=== PATIENT | female | born 1955 | race American Indian/Alaskan Native ===

== ENCOUNTER 2016-11-14 12:44 | Inpatient (IN) | payer MEDICARE ==
[2016-11-14 14:37] LABS: BASO % 0.4 % (0.0-2.0); EOS # 0.3 K/uL (0.0-0.7); HEMATOCRIT 28.9 % (34.0-47.0); LYMPH # 3.7 K/uL (1.0-4.3); LYMPH % 36.9 % (20.0-40.0); MEAN CELL VOLUME 87.1 fL (81.0-99.0); MEAN CORPUSCULAR HEMOGLOBIN 28.1 pg (27.0-31.0); MEAN CORPUSCULAR HGB CONC 32.2 g/dL (33.0-37.0); MEAN PLATELET VOLUME 7.8 fL (7.2-11.7); MONO # 0.7 K/uL (0.0-0.8); MONO % 7.5 % (0.0-10.0); RED CELL DISTRIBUTION WIDTH 13.5 % (11.5-14.5); WHITE BLOOD COUNT 9.9 K/uL (4.8-10.8)
[2016-11-14 14:45] LABS: CHLORIDE 109 mmol/L (98-107); INR 1.2; SODIUM 140 mmol/L (132-148)
[2016-11-14 14:46] LABS: POTASSIUM 4.6 mmol/L (3.6-5.2)
[2016-11-14 14:47] LABS: CHOLESTEROL 145 mg/dL (0-199)
[2016-11-14 14:48] LABS: ALKALINE PHOSPHATASE 211 U/L (38-126); AST/SGOT 20 U/L (14-36); BILIRUBIN,TOTAL 0.5 mg/dL (0.2-1.3); BLOOD UREA NITROGEN 54 mg/dL (7-17); CARBON DIOXIDE 20 mmol/L (22-30); GFR AFRICAN-AMERICAN 12; TOTAL PROTEIN 7.2 g/dL (6.3-8.3)
[2016-11-14 14:49] LABS: ALT/SGPT 27 U/L (9-52); CALCIUM 7.8 mg/dl (8.6-10.4)
--- NOTE | 2016-11-14 14:54 | CP.PCM.CON ---
History of Present Illness - History of Present Illness History of Present Illness: 60 y/o female patient wtih PMH of Anxiety, Arthritis, Depression, Diabetes (NON- INSULIN), GERD, HTN, Rheumatoid Arthritis seen and evaluated at bedside in [facility]. Patient was sent to [facility] from Dr. Wright's ( Her dredge or barge shore hand) office to rule out the bilateral lower extremities DVT. Patient states she first started to have lower extremity swelling a month ago while in [place] for her brother's . Patient states the erythema has only been present for a few days. Patient also complains of pain in right foot that has been present since a fall at home two months ago. Patient states she had an outpatient xray in September that showed a fracture in her heel. Patient also complains of dizziness since a frozen chicken fell out of her freezer onto her head in September. Patient states that she feels weak now. Patient denies any symptoms of N/V/F/SOB/Chest pain. Review of Systems - Constitutional Constitutional: As Per HPI Past Patient History - Past Social History Smoking Status: Light Smoker < 10 Cigarettes Daily - CARDIAC Hx Cardiac Disorders: Yes Hx Hypertension: Yes - ENDOCRINE/METABOLIC Hx Endocrine Disorders: Yes Hx Diabetes Mellitus Type 2: Yes - MUSCULOSKELETAL/RHEUMATOLOGICAL Hx Musculoskeletal Disorders: Yes Hx Arthritis: Yes Hx Rheumatoid Arthritis: Yes - PSYCHIATRIC Hx Psychophysiologic Disorder: Yes Hx Anxiety: Yes Hx Depression: Yes Hx Substance Use: No - SURGICAL HISTORY Hx Surgeries: Yes Hx Cataract Extraction: Yes Hx Cholecystectomy: Yes Hx Eye Surgery: Yes Hx Hysterectomy: Yes Other/Comment: vascular surgery Meds Allergies/Adverse Reactions: Allergies Allergy/AdvReac Type Severity Reaction Status Date / Time codeine Allergy Verified 11/14/16 12:54 Iodine and Iodide Containing Allergy Verified 11/14/16 12:54 Produc Penicillins Allergy Verified 11/14/16 12:54 Sulfa (Sulfonamide Allergy Verified 11/14/16 12:54 Antibiotics) vancomycin Allergy Verified 11/14/16 12:54 seafood Allergy Uncoded 11/14/16 12:54 Physical Exam - Constitutional Appears: Non-toxic, No Acute Distress - Extremities Exam Additional comments: Vascular: DP and PT palpabel, (Doppler was used to right foot), CFT is less than 3 seconds, Mild pedal edema noted to the RLE, warm to touch B/L LE Derm: No Open wounds noted, no cyst noted, moderate erythema noted to the distal LLE Ortho: (+) Dyan sign to the RLE, (-) Dyan sign to the LLE Neuro: Diminished protective sensation and light touch. - Neurological Exam Neurological exam: Alert, CN II-XII Intact - Psychiatric Exam Psychiatric exam: Normal Affect, Normal Mood Results - Vital Signs Recent Vital Signs: Last Vital Signs Temp 98.4 F 11/14/16 12:51 Pulse 78 11/14/16 12:51 Resp 18 11/14/16 12:51 BP 156/81 H 11/14/16 12:51 Pulse Ox 98 11/14/16 12:51 - Labs Result Diagrams: 11/14/16 14:33 11/14/16 14:33 Labs: Laboratory Results - last 24 hr 11/14/16 11/14/16 11/14/16 14:33 14:33 14:33 WBC 9.9 RBC 3.31 L Hgb 9.3 L Hct 28.9 L MCV 87.1 D MCH 28.1 MCHC 32.2 L RDW 13.5 Plt Count 255 MPV 7.8 Neut % (Auto) 52.2 Lymph % (Auto) 36.9 Camp % (Auto) 7.5 Eos % (Auto) 3.0 Baso % (Auto) 0.4 Neut # 5.2 Lymph # 3.7 Camp # 0.7 Eos # 0.3 Baso # 0.0 PT 13.6 H INR 1.2 APTT 32 Hemoglobin A1c 6.8 H Assessment & Plan - Assessment and Plan (Free Text) Assessment: 60 y/o female patient with bilateral lower extremities swelling and erythema Plan: Patient seen and evaluated at bedside in ER All the questions and concerns were addressed Discussed with attending Dr. Wright Venous Duplex-Negative DVT Labs and vitals were reviewed-Hypoglycemia ( 40mg/ml) Patient was given 3 cups of Brewster Juice and started Fluid JESSICA on CKD- Nephrology consult IV abx was started-Cefepime 1g Q24 h ID consult was placed Patient odes not require any lower extremity dressing X ray was reviewed-Right calcaneus avulsion fracture was noted Podiatry will continue to follow while patient remain in house.
--- NOTE | 2016-11-14 15:04 | C.PDOC ---
History Of Present Illness 60 yr old female presents to the ER with complaints of discolored rash to the left lower leg, feeling dizzy for the past 3 weeks after a frozen chicken fell and hit on her top of head and edema to the right lower leg concerned for DVT. Patient is sent from Dr. Naun Wright, podiatry office. Patient denies fever, chest pain, SOB, nausea, vomiting, back pain, weakness or numbness. Time Seen by Provider: 11/14/16 13:50 Chief Complaint (Nursing): Lower Extremity Problem/Injury History Per: Patient History/Exam Limitations: no limitations Onset/Duration Of Symptoms: Days Current Symptoms Are (Timing): Still Present Past Medical History Reviewed: Historical Data, Nursing Documentation, Vital Signs Vital Signs: Last Vital Signs Temp 98.4 F 11/14/16 12:51 Pulse 84 11/14/16 15:22 Resp 18 11/14/16 15:22 BP 166/76 H 11/14/16 15:22 Pulse Ox 98 11/14/16 16:52 - Medical History PMH: Anxiety, Arthritis, Depression, Diabetes (NON-INSULIN), GERD, HTN, Rheumatoid Arthritis Surgical History: Cholecystectomy - [facility] Procedures DESTRUCT-KNEE LESION NEC (05/12/97) ESOPHAGOGASTRODUODENOSCOPY [EGD] W/CLOSED BIOPSY (12/30/12) EXCIS KNEE SEMILUN CARTL (11/09/97) KNEE ARTHROSCOPY (11/09/97) KNEE SYNOVECTOMY (11/09/97) OTHER REPAIR OF KNEE (11/09/97) PERIRECTAL INCISION (12/30/12) SPINAL CANAL INJECT NEC (05/12/97) Family History: States: No Known Family Hx - Social History Hx Tobacco Use: Yes Hx Alcohol Use: No Hx Substance Use: No - Immunization History Hx Tetanus Toxoid Vaccination: No Hx Influenza Vaccination: No Hx Pneumococcal Vaccination: No Review Of Systems Except As Marked, All Systems Reviewed And Found Negative. Constitutional: Negative for: Fever Cardiovascular: Negative for: Chest Pain Respiratory: Negative for: Shortness of Breath Gastrointestinal: Negative for: Nausea, Vomiting Musculoskeletal: Positive for: Other ((+) Edema to the right lower leg). Negative for: Back Pain Skin: Positive for: Rash (Discolored rash to the left lower leg.) Neurological: Positive for: Dizziness. Negative for: Weakness, Numbness Physical Exam - Physical Exam Appears: Well, Non-toxic, No Acute Distress, Other ((+) Obese ) Skin: Warm, Dry, Other (Left Lower Leg - Red discoloration) Head: Atraumatic, Normacephalic Eye(s): bilateral: Other (Eye surgery for cataracts. +Photophobia and redness R> L) Chest: Symmetrical, No Tenderness Cardiovascular: Murmur (holosystolic murmur right aortic focus) Respiratory: Normal Breath Sounds, No Rales, No Rhonchi, No Wheezing Gastrointestinal/Abdominal: Normal Exam, Soft, No Tenderness, No Guarding, No Rebound Extremity: No Calf Tenderness, Other (Right Lower Leg - Severe peripheral neuropathy with deminished sensations of the feet. Right Lower Leg - Mild edema. ) Neurological/Psych: Oriented x3, Normal Speech, Normal Motor ED Course And Treatment - Laboratory Results Result Diagrams: 11/14/16 14:33 11/14/16 14:33 O2 Sat by Pulse Oximetry: 98 - Other Rad CXR X-Ray: Viewed By Me, Read By Radiologist Interpretation: HISTORY: Dizziness. COMPARISON: No prior. FINDINGS: LUNGS: No active pulmonary disease. PLEURA: No significant pleural effusion identified, no pneumothorax apparent. CARDIOVASCULAR: Cardiomegaly. No evidence of acute, significant cardiovascular disease. OSSEOUS STRUCTURES: No significant abnormalities. VISUALIZED UPPER ABDOMEN: Normal. OTHER FINDINGS: None. IMPRESSION: No active disease. No acute/significant interval changes. . Concordant results with the preliminary interpretation rendered by the emergency department physician\PA at the conclusion of the procedure. X-Ray - Bilateral Feet X-Ray: Viewed By Me, Read By Radiologist Interpretation: PROCEDURE: Bilateral Feet Radiographs. HISTORY: recent R foot fx. COMPARISON: None. FINDINGS: BONES: Right Foot: No acute fracture. Plantar and Achilles Tendon insertion calcaneal spurs. Left Foot: No acute fracture. Plantar and Achilles Tendon insertion calcaneal spurs. JOINTS: Right Foot: Normal. No osteoarthritis. Left Foot: Normal. No osteoarthritis. SOFT TISSUES: Right Foot: Diffuse soft tissue swelling. Left Foot: Mild soft tissue swelling. OTHER FINDINGS: None. IMPRESSION: Soft tissue swelling without acute articular or osseous abnormality. - CT Scan/US CT - Head Other Rad Studies (CT/US): Read By Radiologist, Radiology Report Reviewed CT/US Interpretation: PROCEDURE: CT scan brain dated 11/14/2016. HISTORY: Status post fall 3 weeks ago with vertex contusion. Dizziness. No prior 3 wks ago, dizzy. COMPARISON: Comparison made with prior CT scan brain 12/31/2012. TECHNIQUE: Axial computed tomography images were obtained through the head/ brain without intravenous contrast. Radiation dose: Total exam DLP = 981.84 mGy-cm. This CT exam was performed using one or more of the following dose reduction techniques: Automated exposure control, adjustment of the mA and/or kV according to patient size, and/or use of iterative reconstruction technique. FINDINGS: HEMORRHAGE: No acute parenchymal, subarachnoid or extra-axial hemorrhage. BRAIN: No evidence of large acute infarct. No obvious parenchymal nor extra-axial mass or collection seen on this noncontrast study. Very minor generalized volume loss. VENTRICLES: No evidence of obstructive hydrocephalus. CALVARIUM: No acute calvarial fractures. . There is a tiny elliptical shaped radiopaque density within the left posterior superior parietal scalp that could represent small calcification or possibly focal foreign body such as gravel or glass. PARANASAL SINUSES: Frontal sinuses remain underpneumatized/ hypoplastic. Remaining visualized paranasal sinuses well-developed. Mild mucosal thickening again seen left maxillary sinus open. MASTOID AIR CELLS: Unremarkable as visualized. No inflammatory changes. OTHER FINDINGS: None. IMPRESSION: Slight contact 8 uptake in no acute intracranial hemorrhage. Minor generalized volume loss. Questionable small left posterior superior parietal scalp calcification or foreign body. Dopplar Other Rad Studies (CT/US): Read By Radiologist, Radiology Report Reviewed CT/US Interpretation: No abnormal findings of the examined veins bilateral lower extremity. Medical Decision Making Medical Decision Making: PLAN: * Dopplar * CT - Head * X-Ray - Bilateral Feet * CXR * EKG * Troponin * CBC * CMP * Urinalysis R lower leg swelling, prob related to R Achilles tendon rupture, already seen by Pod's and R booty in place. Repair plan pending L lower leg discoloration, LOW susp of cellulitis without tender, fever, leukocytosis. Likely Stasis dermatitis both legs neg for DVT by US today head contusion w dizziness, neg head CT for acute trauma. Consider concussion syndrome. Neuro consult PRN Acute on chronic Renal insufficiency BUN/Creat 54/4.5 from 35/3.4 last month. consider pre-renal vs chronic RA meds IVF's begun Renal consult Dizziness/falls ? related to b/l foot peripheral neuropathy, R achilles tendon rupture, persistent hypoglycemia glu 40's in ED and persistently about 60 even with feeds and re-feeds Consider med changes vs insulinoma Anemia: hgb 9.3 from 10.8 last month consider GI losses or anemia of chronic disease/renal disease Renal/GI workup Iron studies, erythropoiten therapy Cardiac blowing systolic murmer @ Aortic focus consider Cardiac US may explain recurrent anemia. If Critical with syncope... Persistent Falls risk Disposition Doctor Will See Patient In The: Hospital Counseled Patient/Family Regarding: Studies Performed, Diagnosis - Disposition Disposition: HOSPITALIZED Disposition Time: 16:51 Condition: GOOD - Clinical Impression Clinical Impression: Anemia, Acute on chronic renal failure, Frequent falls, Achilles tendon avulsion, Leg swelling - Scribe Statement The provider has reviewed the documentation as recorded by the Scribe Fiorella Sesay Provider Attestation: All medical record entries made by the Hoodibe were at my direction and personally dictated by me. I have reviewed the chart and agree that the record accurately reflects my personal performance of the history, physical exam, medical decision making, and the department course for this patient. I have also personally directed, reviewed, and agree with the discharge instructions and disposition.
--- NOTE | 2016-11-14 15:17 | RAD ---
PROCEDURE: Bilateral Feet Radiographs. HISTORY: recent R foot fx COMPARISON: None. FINDINGS: BONES: Right Foot: No acute fracture. Plantar and Achilles Tendon insertion calcaneal spurs Left Foot: No acute fracture. Plantar and Achilles Tendon insertion calcaneal spurs JOINTS: Right Foot: Normal. No osteoarthritis. Left Foot: Normal. No osteoarthritis. SOFT TISSUES: Right Foot: Diffuse soft tissue swelling. Left Foot: Mild soft tissue swelling. OTHER FINDINGS: None. IMPRESSION: Soft tissue swelling without acute articular or osseous abnormality.
[2016-11-14 15:20] LABS: GLUCOSE,RANDOM 40 mg/dL (65-105)
[2016-11-14] MEDS ORDERED: Sodium Chloride 0.9% 1,000 ML IV STA (15:42)
[2016-11-14] MEDS ORDERED: Sodium Chloride 0.9% 500 ML IV ONE (15:42)
[2016-11-14 17:11] LABS: RBC URINE 1 /hpf (0-3); URINE BILIRUBIN NEGATIVE (NEGATIVE); URINE BLOOD NEGATIVE (NEGATIVE); URINE COLOR Straw (YELLOW); URINE GLUCOSE (UA) NORMAL (Normal); URINE KETONE NEGATIVE (NEGATIVE); URINE LEUKOCYTE ESTERASE NEG Leu/uL (Negative); URINE PROTEIN 2+ mg/dL (NEGATIVE); URINE UROBILINOGEN NORMAL mg/dL (0.2-1.0); WBC URINE 1 /hpf (0-5)
--- NOTE | 2016-11-14 19:41 | CP.PCM.HP ---
History of Present Illness - History of Present Illness History of Present Illness: Patient is a 60 year old female with past medical history significant for HTN, diabetes, GERD and rheumatoid arthritis who presents to the ED after being sent by her emulsion operator for lower extremity edema and erythema. Patient states she saw her emulsion operator, Dr. Wright, yesterday and was told she should be evaluated in the ED. Patient states she did not come to the ED right away because she had an ophthalmology appointment for her recent glaucoma and cataract surgery. Patient states she first started to have lower extremity swelling a month ago while in [place] for her brother's . Patient states the erythema has only been present for a few days. Patient also complains of pain in right foot that has been present since a fall at home two months ago. Patient states she had an outpatient xray in September that showed a fracture in her heel. Patient also complains of dizziness since a frozen chicken fell out of her freezer onto her head in September. Patient denies loss of consciousness since during that event, however she states she has lost consciousness at home several times since. Patient states she was told by her doctor that this may be due to either low blood pressure or hypoglycemia. Patient complains of shortness of breath with walking short distances- from bedroom to bathroom, chest pain when she feels emotional over her brother recent passing, back pain which is chronic from her rheumatoid arthritis, as well as muscle spasms. PMD: Reisner PMHx: HTN, DM, RA, muscle spasms PSHx: eye surgery recently for glaucoma and cataracts, knee surgery FamHx: mother in MVA, multiple family members with cardiac disease, brother recently of unknown cause, pt states possibly cardiac related Social Hx: former 1ppd smoker for 40 years- quit 2 weeks ago, denies alcohol, drugs; lives with daughter Present on Admission - Present on Admission Any Indicators Present on Admission: No Review of Systems - Constitutional Constitutional: Weakness. absent: Chills, Fever - EENT Eyes: Other (recent eye surgery) Nose/Mouth/Throat: absent: Nasal Congestion - Cardiovascular Cardiovascular: Dyspnea, Dyspnea on Exertion, Edema, Leg Edema - Respiratory Respiratory: absent: Cough - Gastrointestinal Gastrointestinal: absent: Abdominal Pain, Nausea, Vomiting - Genitourinary Genitourinary: absent: Dysuria - Musculoskeletal Musculoskeletal: Back Pain - Integumentary Integumentary: Erythema - Neurological Neurological: Dizziness, Frequent Falls Past Patient History - Past Social History Smoking Status: Light Smoker < 10 Cigarettes Daily - CARDIAC Hx Hypertension: Yes - ENDOCRINE/METABOLIC Hx Endocrine Disorders: Yes Hx Diabetes Mellitus Type 2: Yes - MUSCULOSKELETAL/RHEUMATOLOGICAL Hx Arthritis: Yes Hx Rheumatoid Arthritis: Yes - PSYCHIATRIC Hx Anxiety: Yes Hx Depression: Yes Hx Substance Use: No - SURGICAL HISTORY Hx Cholecystectomy: Yes Meds Allergies/Adverse Reactions: Allergies Allergy/AdvReac Type Severity Reaction Status Date / Time codeine Allergy Verified 11/14/16 12:54 Iodine and Iodide Containing Allergy Verified 11/14/16 12:54 Produc Penicillins Allergy Verified 11/14/16 12:54 Sulfa (Sulfonamide Allergy Verified 11/14/16 12:54 Antibiotics) vancomycin Allergy Verified 11/14/16 12:54 seafood Allergy Uncoded 11/14/16 12:54 Physical Exam - Constitutional Appears: No Acute Distress, Other (obese) - Head Exam Head Exam: ATRAUMATIC, NORMOCEPHALIC - Eye Exam Eye Exam: EOMI - ENT Exam ENT Exam: Mucous Membranes Moist - Respiratory Exam Respiratory Exam: Clear to Auscultation Bilateral, NORMAL BREATHING PATTERN - Cardiovascular Exam Cardiovascular Exam: +S1, +S2, Systolic Murmur - GI/Abdominal Exam GI & Abdominal Exam: Normal Bowel Sounds, Soft. absent: Tenderness - Extremities Exam Extremities exam: Positive for: pedal edema Additional comments: bilateral DP pulses palpable erythema bilateral lower extremities to mid calf level bilateral pitting edema, right greater than left decreased sensation bilateral feet - Neurological Exam Neurological exam: Alert - Psychiatric Exam Psychiatric exam: Normal Affect - Skin Skin Exam: Erythema, Warm Results - Vital Signs Recent Vital Signs: Last Vital Signs Temp 98.1 F 11/14/16 18:18 Pulse 88 11/14/16 18:18 Resp 20 11/14/16 18:18 BP 194/94 H 11/14/16 18:18 Pulse Ox 96 11/14/16 18:18 - Labs Result Diagrams: 11/14/16 14:33 11/14/16 14:33 Labs: Laboratory Results - last 24 hr 11/14/16 11/14/16 17:06 17:41 POC Glucose (mg/dL) 105 Urine Color Straw Urine Clarity Clear Urine pH 5.0 Ur Specific [place] 1.012 Urine Protein 2+ H Urine Glucose (UA) Normal Urine Ketones Negative Urine Blood Negative Urine Nitrate Negative Urine Bilirubin Negative Urine Urobilinogen Normal Ur Leukocyte Esterase Neg Urine WBC (Auto) 1 Urine RBC (Auto) 1 Ur Squamous Epith Cells 2 Assessment & Plan - Assessment and Plan (Free Text) Assessment: Lower Extremity swelling and erythema suspect cellulitis Lower extremity venous doppler negative for DVT b/l foot xray: soft tissue swelling without acute articular or osseous abnormality will check VBG, procalcitonin blood cultures drawn in ED, will follow up result will start cefepime 1g q24h- patient does have history of penicillin allergy, we will monitor patient for signs of allergic reaction ID consult, Dr. Hubbard- help appreciated will check echo to rule out CHF JESSICA on CKD will give gentle IV fluid hydration of NS @40cc/h, monitor for signs of fluid overload Nephrology consult- Dr. Morillo- help appreciated Hypoglycemia suspected from adrenal insufficiency secondary to her long standing use of prednisone will check AM cortisol level accuchecks q4h HTN bystolic 10mg daily lopressor 100mg BID nifedipine 60mg daily monitor on tele Diabetes accuchecks q4h ISS mod consistent carb diet Diabetic Neuropathy reducing home dose of gabapentin to 100mg TID due to renal insufficiency Muscle Spasm Flexeril 5mg TID Rheumatoid arthritis continue prednisone daily Prophylactic measure heparin 5000 q12h protonix 40mg daily percocent 5/325 q8prn pain
[2016-11-14 19:51] LABS: VENOUS BLOOD GAS PCO2 45 mmHg (40-60); VENOUS BLOOD PH 7.29 (7.32-7.43)
[2016-11-14] MEDS: Oxycodone/Acetaminophen 5/325 mg Tab PO PRN (19:58)
[2016-11-14] MEDS: Cefepime IV 1 gm in Dextrose 1 GM/50 ML BAG IVPB SCH (21:42)
[2016-11-14] MEDS: Sodium Chloride 0.9% 1,000 ML IV SCH (21:45)
[2016-11-14] MEDS: (Novolin R) Insulin Human Regular 100 units/ml vial SC SCH (22:01)
[2016-11-15] MEDS: Oxycodone/Acetaminophen 5/325 mg Tab PO PRN ×3 (04:22→20:27)
[2016-11-15] MEDS ORDERED: Aritificial Tears (15ml) OU PRN (04:58)
[2016-11-15] MEDS ORDERED: Ciprofloxacin 0.3% OPTH SOLN OU SCH (06:00)
[2016-11-15] MEDS: Ofloxacin 0.3% Ophth Soln OU SCH ×4 (06:14→18:01)
[2016-11-15] MEDS: (Novolin R) Insulin Human Regular 100 units/ml vial SC SCH ×4 (07:54→21:26)
[2016-11-15 08:51] LABS: BASO % 0.5 % (0.0-2.0); EOS # 0.3 K/uL (0.0-0.7); EOS % 3.8 % (0.0-4.0); HEMATOCRIT 28.5 % (34.0-47.0); LYMPH # 2.5 K/uL (1.0-4.3); LYMPH % 35.2 % (20.0-40.0); MEAN CELL VOLUME 87.6 fL (81.0-99.0); MEAN CORPUSCULAR HEMOGLOBIN 28.5 pg (27.0-31.0); MEAN CORPUSCULAR HGB CONC 32.5 g/dL (33.0-37.0); MEAN PLATELET VOLUME 8.2 fL (7.2-11.7); MONO # 0.5 K/uL (0.0-0.8); MONO % 7.5 % (0.0-10.0); RED CELL DISTRIBUTION WIDTH 13.6 % (11.5-14.5)
[2016-11-15 09:12] LABS: CHLORIDE 110 mmol/L (98-107)
[2016-11-15 09:13] LABS: POTASSIUM 4.8 mmol/L (3.6-5.2); SODIUM 140 mmol/L (132-148)
[2016-11-15 09:15] LABS: BILIRUBIN,TOTAL 0.5 mg/dL (0.2-1.3); CARBON DIOXIDE 21 mmol/L (22-30); GFR AFRICAN-AMERICAN 13
[2016-11-15 09:16] LABS: ALB/GLOB RATIO 0.9 (1.0-2.1); ALKALINE PHOSPHATASE 200 U/L (38-126); ALT/SGPT 24 U/L (9-52); AST/SGOT 19 U/L (14-36); BLOOD UREA NITROGEN 49 mg/dL (7-17); CALCIUM 8.2 mg/dl (8.6-10.4); GLUCOSE,RANDOM 84 mg/dL (65-105); TOTAL PROTEIN 6.9 g/dL (6.3-8.3)
[2016-11-15 09:20] LABS: T4 7.29 ug/dL (5.5-11.0)
[2016-11-15 09:33] LABS: CORTISOL AM 8.1 ug/dL (4.46-22.7)
[2016-11-15 09:34] LABS: THYROID STIMULATING HORMONE < 0.02 mIU/L (0.46-4.68)
[2016-11-15] MEDS: Pantoprazole 40 mg EC Tab PO SCH (09:53)
[2016-11-15] MEDS: NIFEdipine 60 mg ER Tab PO SCH (10:06)
[2016-11-15] MEDS ORDERED: Oxycodone/Acetaminophen 5/325 mg Tab PO STA (10:13)
--- NOTE | 2016-11-15 11:03 | CP.PCM.PN ---
Subjective - Date & Time of Evaluation Date of Evaluation: 11/15/16 Time of Evaluation: 11:00 - Subjective Subjective: PODIATRY PROGRESS NOTE for DR. WRIGHT: 60 y/o female patient seen at bedside this morning for f/u of lower extremity edema and erythema. Pt seen resting comfortably in bed at time of visit, is AAOx3 and NAD. Says she is feeling much better today. Says that she does not remember too much about being in the emergency room yesterday but knows that she was given OJ and a sandwich. Denies any acute overnight events. Does complain of some persistent tenderness to the right calf today and some tenderness to the inside of her right foot arch. Denies f/n/v/c/sob/cp, says weakness and dizziness is much improved. Objective - Vital Signs/Intake and Output Vital Signs (last 24 hours): Temp Pulse Resp BP Pulse Ox 98.2 F 74 20 179/82 H 99 11/15/16 07:34 11/15/16 07:34 11/15/16 07:34 11/15/16 07:34 11/15/16 07:34 - Medications Medications: Current Medications Artificial Tears (Artificial Tears) 0.1 ml OU Q6H PRN PRN Reason: Dry eyes Cyclobenzaprine HCl (Flexeril) 5 mg PO TID [facility] Last Admin: 11/15/16 09:53 Dose: 5 mg Gabapentin (Neurontin) 100 mg PO TID [facility] Last Admin: 11/15/16 09:53 Dose: 100 mg Heparin Sodium (Porcine) (Heparin) 5,000 units SC Q12 [facility] Last Admin: 11/15/16 09:54 Dose: 5,000 units Sodium Chloride (Sodium Chloride 0.9%) 1,000 mls @ 40 mls/hr IV .Q24H [facility] Last Admin: 11/14/16 21:45 Dose: 40 mls/hr Cefepime HCl (Maxipime Iv 1 Gm Premix) 1 gm in 50 mls @ 100 mls/hr IVPB Q24H [facility] Last Admin: 11/14/16 21:42 Dose: 100 mls/hr Insulin Human Regular (Novolin R) 0 unit SC ACHS [facility] PRN Reason: Protocol Last Admin: 11/15/16 07:54 Dose: Not Given Metoprolol Tartrate (Lopressor) 100 mg PO BID [facility] Last Admin: 11/15/16 09:52 Dose: 100 mg Nebivolol (Bystolic) 10 mg PO DAILY [facility] Last Admin: 11/15/16 09:53 Dose: 10 mg Nifedipine (Procardia Xl) 60 mg PO DAILY [facility] Last Admin: 11/15/16 10:06 Dose: 60 mg Ofloxacin (Ocuflox Ophth 0.3%) 1 ml OU Q4H [facility] Last Admin: 11/15/16 09:53 Dose: 1 drop Oxycodone/Acetaminophen (Percocet 5/325 Mg Tab) 1 tab PO Q8H PRN PRN Reason: Pain, moderate (4-7) Stop: 11/17/16 18:37 Last Admin: 11/15/16 04:22 Dose: 1 tab Pantoprazole Sodium (Protonix Ec Tab) 40 mg PO DAILY [facility] Last Admin: 11/15/16 09:53 Dose: 40 mg Prednisone (Prednisone Tab) 5 mg PO DAILY [facility] Last Admin: 11/15/16 09:53 Dose: 5 mg - Labs Labs: 11/15/16 08:41 11/15/16 08:41 PT 13.6 SECONDS (9.7-12.2) H 11/14/16 14:33 INR 1.2 11/14/16 14:33 APTT 32 SECONDS (21-34) 11/14/16 14:33 - Constitutional Appears: Non-toxic, No Acute Distress - Extremities Exam Additional comments: BL low ext. exam: VASC: Dp/PT pulses palpable, cap refill < 3 sec to digits x 10, mild pedal edema noted to RLE, skin temp is warm to warm BL DERM: no open wounds noted, moderate erythema noted to distal LLE (margins marked with marking pen) Ortho: (+) tenderness to palp of right posterior leg, tenderness to palp of medial arch right foot, (-) tenderness to palp of posterior left leg NEURO: diminished protective and light touch sensation BL - Neurological Exam Neurological Exam: Alert, Awake, Oriented x3 - Psychiatric Exam Psychiatric exam: Normal Affect, Normal Mood Assessment and Plan - Assessment and Plan (Free Text) Assessment: 60 y/o female patient with bilateral lower extremities swelling and erythema Plan: Patient seen and evaluated at bedside Plan discussed with attending Dr. Wright in detail Low ext venous Duplex: Negative DVT Chart, labs and vitals reviewed: afebile, glucose improved (84 mg/dL) JESSICA on CKD- f/u nephrology recommendation c/w IV abx cefepime 1a q24h f/u ID recommendations pain meds per primary R foot x-ray: Right calcaneus avulsion fracture was noted. Pt is to ambulate with CAM boot which is at bedside Stable per podiatry, will continue to follow while she remains in house.
--- NOTE | 2016-11-15 12:27 | CP.PCM.CON ---
History of Present Illness - History of Present Illness History of Present Illness: Patient is a 60 year old female with past medical history significant for HTN, diabetes, GERD and rheumatoid arthritis who presents to the ED after being sent by her water filtration technician for lower extremity edema and erythema. Patient states she saw her water filtration technician, Dr. Wright, yesterday and was told she should be evaluated in the ED. Patient states she did not come to the ED right away because she had an ophthalmology appointment for her recent glaucoma and cataract surgery. Patient states she first started to have lower extremity swelling a month ago while in [place] for her brother's . Patient states the erythema has only been present for a few days. Patient also complains of pain in right foot that has been present since a fall at home two months ago. Patient states she had an outpatient xray in September that showed a fracture in her heel. Patient also complains of dizziness since a frozen chicken fell out of her freezer onto her head in September. Patient denies loss of consciousness since during that event, however she states she has lost consciousness at home several times since. Patient states she was told by her doctor that this may be due to either low blood pressure or hypoglycemia. Patient complains of shortness of breath with walking short distances- from bedroom to bathroom, chest pain when she feels emotional over her brother recent passing, back pain which is chronic from her rheumatoid arthritis, as well as muscle spasms. She noted tightness of lower ext without pain over past several days. No fever but chills described Patient reports history of ckd due to diabetes, she is not clear on stage of ckd. Family history as below and in addition mother with history of esrd PMD: Reisner PMHx: HTN, DM, RA, muscle spasms PSHx: eye surgery recently for glaucoma and cataracts, knee surgery FamHx: mother in MVA, multiple family members with cardiac disease, brother recently of unknown cause, pt states possibly cardiac related Social Hx: former 1ppd smoker for 40 years- quit 2 weeks ago, denies alcohol, drugs; lives with daughter Review of Systems - Constitutional Constitutional: Fatigue, Lethargy - EENT Eyes: Loss of Vision. absent: Pain Ears: absent: Ear Discharge, Ear Pain, Dizziness Nose/Mouth/Throat: absent: Nasal Trauma, Nose Pain, Bleeding Gums, Dry Mouth - Cardiovascular Cardiovascular: As Per HPI - Respiratory Respiratory: absent: Cough, Wheezing, Snoring - Gastrointestinal Gastrointestinal: absent: Dysphagia, Nausea, Vomiting - Genitourinary Genitourinary: absent: Pyuria, Urinary Hesitance, Freq UTI - Musculoskeletal Musculoskeletal: Muscle Weakness, Stiffness. absent: Muscle Cramps - Integumentary Integumentary: Changing Lesions, Rash Additional comments: see hpi - Neurological Neurological: Loss of Vision, Sensory Deficit, Weakness. absent: Confusion - Psychiatric Psychiatric: Depression. absent: Confusion - Endocrine Endocrine: absent: Heat Intolorance, Polyphagia, Polyuria - Hematologic/Lymphatic Hematologic: absent: Easy Bleeding, Easy Bruising Past Patient History - Past Medical History & Family History Past Medical History?: Yes - Past Social History Smoking Status: Light Smoker < 10 Cigarettes Daily - CARDIAC Hx Cardiac Disorders: Yes Hx Hypertension: Yes - ENDOCRINE/METABOLIC Hx Endocrine Disorders: Yes Hx Diabetes Mellitus Type 2: Yes - MUSCULOSKELETAL/RHEUMATOLOGICAL Hx Musculoskeletal Disorders: Yes Hx Arthritis: Yes Hx Rheumatoid Arthritis: Yes - PSYCHIATRIC Hx Psychophysiologic Disorder: Yes Hx Anxiety: Yes Hx Depression: Yes Hx Substance Use: No - SURGICAL HISTORY Hx Surgeries: Yes Hx Cataract Extraction: Yes Hx Cholecystectomy: Yes Hx Eye Surgery: Yes Hx Hysterectomy: Yes Other/Comment: vascular surgery - ANESTHESIA Hx Anesthesia: Yes Hx Anesthesia Reactions: No Meds Allergies/Adverse Reactions: Allergies Allergy/AdvReac Type Severity Reaction Status Date / Time codeine Allergy Verified 11/14/16 12:54 Iodine and Iodide Containing Allergy Verified 11/14/16 12:54 Produc Penicillins Allergy Verified 11/14/16 12:54 Sulfa (Sulfonamide Allergy Verified 11/14/16 12:54 Antibiotics) vancomycin Allergy Verified 11/14/16 12:54 seafood Allergy Uncoded 11/14/16 12:54 - Medications Medications: Current Medications Artificial Tears (Artificial Tears) 0.1 ml OU Q6H PRN PRN Reason: Dry eyes Cyclobenzaprine HCl (Flexeril) 5 mg PO TID [facility] Last Admin: 11/15/16 09:53 Dose: 5 mg Gabapentin (Neurontin) 100 mg PO TID [facility] Last Admin: 11/15/16 09:53 Dose: 100 mg Heparin Sodium (Porcine) (Heparin) 5,000 units SC Q12 [facility] Last Admin: 11/15/16 09:54 Dose: 5,000 units Sodium Chloride (Sodium Chloride 0.9%) 1,000 mls @ 40 mls/hr IV .Q24H [facility] Last Admin: 11/14/16 21:45 Dose: 40 mls/hr Cefepime HCl (Maxipime Iv 1 Gm Premix) 1 gm in 50 mls @ 100 mls/hr IVPB Q24H [facility] Last Admin: 11/14/16 21:42 Dose: 100 mls/hr Insulin Human Regular (Novolin R) 0 unit SC ACHS [facility] PRN Reason: Protocol Last Admin: 11/15/16 12:12 Dose: Not Given Metoprolol Tartrate (Lopressor) 100 mg PO BID [facility] Last Admin: 11/15/16 09:52 Dose: 100 mg Nebivolol (Bystolic) 10 mg PO DAILY [facility] Last Admin: 11/15/16 09:53 Dose: 10 mg Nifedipine (Procardia Xl) 60 mg PO DAILY [facility] Last Admin: 11/15/16 10:06 Dose: 60 mg Ofloxacin (Ocuflox Ophth 0.3%) 1 ml OU Q4H [facility] Last Admin: 11/15/16 09:53 Dose: 1 drop Oxycodone/Acetaminophen (Percocet 5/325 Mg Tab) 1 tab PO Q8H PRN PRN Reason: Pain, moderate (4-7) Stop: 11/17/16 18:37 Last Admin: 11/15/16 04:22 Dose: 1 tab Pantoprazole Sodium (Protonix Ec Tab) 40 mg PO DAILY [facility] Last Admin: 11/15/16 09:53 Dose: 40 mg Prednisone (Prednisone Tab) 5 mg PO DAILY [facility] Last Admin: 11/15/16 09:53 Dose: 5 mg Physical Exam - Constitutional Appears: Non-toxic, Chronically Ill - Head Exam Head Exam: ATRAUMATIC, NORMAL INSPECTION - Eye Exam Eye Exam: absent: Conjunctival injection, Scleral icterus - Neck Exam Neck exam: Negative for: Lymphadenopathy, Thyromegaly - Respiratory Exam Respiratory Exam: Clear to Auscultation Bilateral. absent: Rhonchi, Wheezes - Cardiovascular Exam Cardiovascular Exam: REGULAR RHYTHM, +S1, +S2, Systolic Murmur - GI/Abdominal Exam GI & Abdominal Exam: Normal Bowel Sounds, Soft - Extremities Exam Extremities exam: Positive for: pedal edema, tenderness Additional comments: erythema and area of demarcation - Neurological Exam Neurological exam: Alert, Oriented x3 Additional comments: blind - Psychiatric Exam Psychiatric exam: Normal Affect, Normal Mood - Skin Skin Exam: Dry, Intact, Rash, Warm Additional comments: demarcated area of lowe rext Results - Vital Signs Recent Vital Signs: Last Vital Signs Temp 98.2 F 11/15/16 07:34 Pulse 74 11/15/16 07:34 Resp 20 11/15/16 07:34 BP 179/82 H 11/15/16 07:34 Pulse Ox 99 11/15/16 07:34 - Labs Result Diagrams: 11/15/16 08:41 11/15/16 08:41 Labs: Laboratory Results - last 24 hr 11/14/16 11/14/16 11/14/16 17:06 17:41 19:45 WBC RBC Hgb Hct MCV MCH MCHC RDW Plt Count MPV Neut % (Auto) Lymph % (Auto) [place] % (Auto) Eos % (Auto) Baso % (Auto) Neut # Lymph # [place] # Eos # Baso # pO2 46 VBG pH 7.29 L VBG pCO2 45 VBG HCO3 20.4 VBG Total CO2 23.0 VBG O2 Sat (Calc) 85.1 H VBG Base Excess -5.0 L VBG Potassium 5.3 H Sodium 139.0 Chloride 111.0 H Glucose 112 H Lactate 1.3 Potassium Carbon Dioxide Anion Gap BUN Creatinine Est GFR ( Amer) Est GFR (Non-Af Amer) POC Glucose (mg/dL) 105 Random Glucose Calcium Total Bilirubin AST ALT Alkaline Phosphatase Total Creatine Kinase CK-MB (Mass) Troponin I, Quant Total Protein Albumin Globulin Albumin/Globulin Ratio Procalcitonin Thyroxine (T4) TSH 3rd Generation Cortisol AM Sample Venous Blood Potassium 5.3 H Urine Color Straw Urine Clarity Clear Urine pH 5.0 Ur Specific [place] 1.012 Urine Protein 2+ H Urine Glucose (UA) Normal Urine Ketones Negative Urine Blood Negative Urine Nitrate Negative Urine Bilirubin Negative Urine Urobilinogen Normal Ur Leukocyte Esterase Neg Urine WBC (Auto) 1 Urine RBC (Auto) 1 Ur Squamous Epith Cells 2 11/14/16 11/14/16 11/14/16 19:48 19:48 21:23 WBC RBC Hgb Hct MCV MCH MCHC RDW Plt Count MPV Neut % (Auto) Lymph % (Auto) [place] % (Auto) Eos % (Auto) Baso % (Auto) Neut # Lymph # [place] # Eos # Baso # pO2 VBG pH VBG pCO2 VBG HCO3 VBG Total CO2 VBG O2 Sat (Calc) VBG Base Excess VBG Potassium Sodium Chloride Glucose Lactate Potassium Carbon Dioxide Anion Gap BUN Creatinine Est GFR ( Amer) Est GFR (Non-Af Amer) POC Glucose (mg/dL) 106 Random Glucose Calcium Total Bilirubin AST ALT Alkaline Phosphatase Total Creatine Kinase 117 CK-MB (Mass) 2.50 Troponin I, Quant < 0.0120 Total Protein Albumin Globulin Albumin/Globulin Ratio Procalcitonin 0.12 L Thyroxine (T4) TSH 3rd Generation Cortisol AM Sample Venous Blood Potassium Urine Color Urine Clarity Urine pH Ur Specific [place] Urine Protein Urine Glucose (UA) Urine Ketones Urine Blood Urine Nitrate Urine Bilirubin Urine Urobilinogen Ur Leukocyte Esterase Urine WBC (Auto) Urine RBC (Auto) Ur Squamous Epith Cells 11/15/16 11/15/16 11/15/16 03:46 06:12 08:41 WBC 7.0 RBC 3.25 L Hgb 9.3 L Hct 28.5 L MCV 87.6 MCH 28.5 MCHC 32.5 L RDW 13.6 Plt Count 228 MPV 8.2 Neut % (Auto) 53.0 Lymph % (Auto) 35.2 [place] % (Auto) 7.5 Eos % (Auto) 3.8 Baso % (Auto) 0.5 Neut # 3.7 Lymph # 2.5 [place] # 0.5 Eos # 0.3 Baso # 0.0 pO2 VBG pH VBG pCO2 VBG HCO3 VBG Total CO2 VBG O2 Sat (Calc) VBG Base Excess VBG Potassium Sodium Chloride Glucose Lactate Potassium Carbon Dioxide Anion Gap BUN Creatinine Est GFR ( Amer) Est GFR (Non-Af Amer) POC Glucose (mg/dL) 94 Random Glucose Calcium Total Bilirubin AST ALT Alkaline Phosphatase Total Creatine Kinase 108 CK-MB (Mass) 2.26 Troponin I, Quant < 0.0120 Total Protein Albumin Globulin Albumin/Globulin Ratio Procalcitonin Thyroxine (T4) TSH 3rd Generation Cortisol AM Sample Venous Blood Potassium Urine Color Urine Clarity Urine pH Ur Specific [place] Urine Protein Urine Glucose (UA) Urine Ketones Urine Blood Urine Nitrate Urine Bilirubin Urine Urobilinogen Ur Leukocyte Esterase Urine WBC (Auto) Urine RBC (Auto) Ur Squamous Epith Cells 11/15/16 11/15/16 08:41 11:35 WBC RBC Hgb Hct MCV MCH MCHC RDW Plt Count MPV Neut % (Auto) Lymph % (Auto) [place] % (Auto) Eos % (Auto) Baso % (Auto) Neut # Lymph # [place] # Eos # Baso # pO2 VBG pH VBG pCO2 VBG HCO3 VBG Total CO2 VBG O2 Sat (Calc) VBG Base Excess VBG Potassium Sodium 140 Chloride 110 H Glucose Lactate Potassium 4.8 Carbon Dioxide 21 L Anion Gap 14 BUN 49 H Creatinine 4.2 H Est GFR ( Amer) 13 Est GFR (Non-Af Amer) 11 POC Glucose (mg/dL) 149 H Random Glucose 84 Calcium 8.2 L Total Bilirubin 0.5 AST 19 ALT 24 Alkaline Phosphatase 200 H Total Creatine Kinase CK-MB (Mass) Troponin I, Quant Total Protein 6.9 Albumin 3.3 L Globulin 3.7 Albumin/Globulin Ratio 0.9 L Procalcitonin Thyroxine (T4) 7.29 TSH 3rd Generation < 0.02 L Cortisol AM Sample 8.1 Venous Blood Potassium Urine Color Urine Clarity Urine pH Ur Specific [place] Urine Protein Urine Glucose (UA) Urine Ketones Urine Blood Urine Nitrate Urine Bilirubin Urine Urobilinogen Ur Leukocyte Esterase Urine WBC (Auto) Urine RBC (Auto) Ur Squamous Epith Cells Assessment & Plan (1) Type 2 diabetes mellitus with diabetic chronic kidney disease Status: Acute (2) Hypertension Status: Acute (3) CKD (chronic kidney disease) Status: Acute (4) Anemia Status: Acute (5) Acute on chronic renal failure Status: Acute - Assessment and Plan (Free Text) Assessment: Acute kidney injury on chronic kidney disease Multiple etiologies possible - suspect volume depletion along with sepsis induced renal failure, can not exclude obstruction and nephrotoxicity Progression of ckd possible as well Agree with IVF and empiric abx ID eval suggested Monitor bp with home meds No nephrotoxins Renal ultrasound ordered CKD eval with pth vit d and iron stores Hopefully renal function will improve
[2016-11-15 13:32] LABS: FT3 6.11 pg/mL (2.77-5.27)
--- NOTE | 2016-11-15 14:45 | US ---
Renal ultrasound History: Chronic kidney disease. Comparison: None available. Technique: Real-time sonography was performed through the kidneys. Findings: Right kidney: 10.3 x 4.4 x 5.3 centimeters. Increased echogenicity of the renal cortex suggestive for medical renal disease. No calculi or hydronephrosis. Left Kidney: 11.3 x 5.9 x 5.7 centimeters. Increased echogenicity of the renal cortex suggestive for medical renal disease. No calculi or hydronephrosis. Small amount of perinephric fluid adjacent to the lower pole of the left kidney. Aorta and IVC are not well visualized. Urinary bladder not well visualized. Impression: Small amount of perinephric fluid adjacent to the lower pole of the left kidney. Increased echogenicity of the bilateral renal cortices suggestive for medical renal disease.
--- NOTE | 2016-11-15 14:46 | CP.PCM.CON ---
History of Present Illness - History of Present Illness History of Present Illness: dictated Past Patient History - Past Medical History & Family History Past Medical History?: Yes - Past Social History Smoking Status: Light Smoker < 10 Cigarettes Daily - CARDIAC Hx Cardiac Disorders: Yes Hx Hypertension: Yes - ENDOCRINE/METABOLIC Hx Endocrine Disorders: Yes Hx Diabetes Mellitus Type 2: Yes - MUSCULOSKELETAL/RHEUMATOLOGICAL Hx Musculoskeletal Disorders: Yes Hx Arthritis: Yes Hx Rheumatoid Arthritis: Yes - PSYCHIATRIC Hx Psychophysiologic Disorder: Yes Hx Anxiety: Yes Hx Depression: Yes Hx Substance Use: No - SURGICAL HISTORY Hx Surgeries: Yes Hx Cataract Extraction: Yes Hx Cholecystectomy: Yes Hx Eye Surgery: Yes Hx Hysterectomy: Yes Other/Comment: vascular surgery - ANESTHESIA Hx Anesthesia: Yes Hx Anesthesia Reactions: No Meds Allergies/Adverse Reactions: Allergies Allergy/AdvReac Type Severity Reaction Status Date / Time codeine Allergy Verified 11/14/16 12:54 Iodine and Iodide Containing Allergy Verified 11/14/16 12:54 Produc Penicillins Allergy Verified 11/14/16 12:54 Sulfa (Sulfonamide Allergy Verified 11/14/16 12:54 Antibiotics) vancomycin Allergy Verified 11/14/16 12:54 seafood Allergy Uncoded 11/14/16 12:54 - Medications Medications: Current Medications Artificial Tears (Artificial Tears) 0.1 ml OU Q6H PRN PRN Reason: Dry eyes Cyclobenzaprine HCl (Flexeril) 5 mg PO TID [facility] Last Admin: 11/15/16 14:04 Dose: 5 mg Gabapentin (Neurontin) 100 mg PO TID [facility] Last Admin: 11/15/16 13:57 Dose: 100 mg Heparin Sodium (Porcine) (Heparin) 5,000 units SC Q12 [facility] Last Admin: 11/15/16 09:54 Dose: 5,000 units Sodium Chloride (Sodium Chloride 0.9%) 1,000 mls @ 40 mls/hr IV .Q24H [facility] Last Admin: 11/14/16 21:45 Dose: 40 mls/hr Cefepime HCl (Maxipime Iv 1 Gm Premix) 1 gm in 50 mls @ 100 mls/hr IVPB Q24H [facility] Last Admin: 11/14/16 21:42 Dose: 100 mls/hr Insulin Human Regular (Novolin R) 0 unit SC ACHS [facility] PRN Reason: Protocol Last Admin: 11/15/16 12:12 Dose: Not Given Metoprolol Tartrate (Lopressor) 100 mg PO BID [facility] Last Admin: 11/15/16 09:52 Dose: 100 mg Nebivolol (Bystolic) 10 mg PO DAILY [facility] Last Admin: 11/15/16 09:53 Dose: 10 mg Nifedipine (Procardia Xl) 60 mg PO DAILY [facility] Last Admin: 11/15/16 10:06 Dose: 60 mg Ofloxacin (Ocuflox Ophth 0.3%) 1 ml OU Q4H [facility] Last Admin: 11/15/16 13:57 Dose: 1 drop Oxycodone/Acetaminophen (Percocet 5/325 Mg Tab) 1 tab PO Q8H PRN PRN Reason: Pain, moderate (4-7) Stop: 11/17/16 18:37 Last Admin: 11/15/16 14:02 Dose: 1 tab Pantoprazole Sodium (Protonix Ec Tab) 40 mg PO DAILY [facility] Last Admin: 11/15/16 09:53 Dose: 40 mg Prednisone (Prednisone Tab) 5 mg PO DAILY [facility] Last Admin: 11/15/16 09:53 Dose: 5 mg Results - Vital Signs Recent Vital Signs: Last Vital Signs Temp 98.2 F 11/15/16 07:34 Pulse 74 11/15/16 07:34 Resp 20 11/15/16 07:34 BP 179/82 H 11/15/16 07:34 Pulse Ox 99 11/15/16 07:34 - Labs Result Diagrams: 11/15/16 08:41 11/15/16 08:41 Labs: Laboratory Results - last 24 hr 11/14/16 11/14/16 11/14/16 17:06 17:41 19:45 WBC RBC Hgb Hct MCV MCH MCHC RDW Plt Count MPV Neut % (Auto) Lymph % (Auto) [place] % (Auto) Eos % (Auto) Baso % (Auto) Neut # Lymph # [place] # Eos # Baso # pO2 46 VBG pH 7.29 L VBG pCO2 45 VBG HCO3 20.4 VBG Total CO2 23.0 VBG O2 Sat (Calc) 85.1 H VBG Base Excess -5.0 L VBG Potassium 5.3 H Sodium 139.0 Chloride 111.0 H Glucose 112 H Lactate 1.3 Potassium Carbon Dioxide Anion Gap BUN Creatinine Est GFR ( Amer) Est GFR (Non-Af Amer) POC Glucose (mg/dL) 105 Random Glucose Calcium Total Bilirubin AST ALT Alkaline Phosphatase Total Creatine Kinase CK-MB (Mass) Troponin I, Quant Total Protein Albumin Globulin Albumin/Globulin Ratio Procalcitonin Free T4 Thyroxine (T4) TSH 3rd Generation Cortisol AM Sample Venous Blood Potassium 5.3 H Urine Color Straw Urine Clarity Clear Urine pH 5.0 Ur Specific [place] 1.012 Urine Protein 2+ H Urine Glucose (UA) Normal Urine Ketones Negative Urine Blood Negative Urine Nitrate Negative Urine Bilirubin Negative Urine Urobilinogen Normal Ur Leukocyte Esterase Neg Urine WBC (Auto) 1 Urine RBC (Auto) 1 Ur Squamous Epith Cells 2 11/14/16 11/14/16 11/14/16 19:48 19:48 21:23 WBC RBC Hgb Hct MCV MCH MCHC RDW Plt Count MPV Neut % (Auto) Lymph % (Auto) [place] % (Auto) Eos % (Auto) Baso % (Auto) Neut # Lymph # [place] # Eos # Baso # pO2 VBG pH VBG pCO2 VBG HCO3 VBG Total CO2 VBG O2 Sat (Calc) VBG Base Excess VBG Potassium Sodium Chloride Glucose Lactate Potassium Carbon Dioxide Anion Gap BUN Creatinine Est GFR ( Amer) Est GFR (Non-Af Amer) POC Glucose (mg/dL) 106 Random Glucose Calcium Total Bilirubin AST ALT Alkaline Phosphatase Total Creatine Kinase 117 CK-MB (Mass) 2.50 Troponin I, Quant < 0.0120 Total Protein Albumin Globulin Albumin/Globulin Ratio Procalcitonin 0.12 L Free T4 Thyroxine (T4) TSH 3rd Generation Cortisol AM Sample Venous Blood Potassium Urine Color Urine Clarity Urine pH Ur Specific [place] Urine Protein Urine Glucose (UA) Urine Ketones Urine Blood Urine Nitrate Urine Bilirubin Urine Urobilinogen Ur Leukocyte Esterase Urine WBC (Auto) Urine RBC (Auto) Ur Squamous Epith Cells 11/15/16 11/15/16 11/15/16 03:46 06:12 08:41 WBC 7.0 RBC 3.25 L Hgb 9.3 L Hct 28.5 L MCV 87.6 MCH 28.5 MCHC 32.5 L RDW 13.6 Plt Count 228 MPV 8.2 Neut % (Auto) 53.0 Lymph % (Auto) 35.2 [place] % (Auto) 7.5 Eos % (Auto) 3.8 Baso % (Auto) 0.5 Neut # 3.7 Lymph # 2.5 [place] # 0.5 Eos # 0.3 Baso # 0.0 pO2 VBG pH VBG pCO2 VBG HCO3 VBG Total CO2 VBG O2 Sat (Calc) VBG Base Excess VBG Potassium Sodium Chloride Glucose Lactate Potassium Carbon Dioxide Anion Gap BUN Creatinine Est GFR ( Amer) Est GFR (Non-Af Amer) POC Glucose (mg/dL) 94 Random Glucose Calcium Total Bilirubin AST ALT Alkaline Phosphatase Total Creatine Kinase 108 CK-MB (Mass) 2.26 Troponin I, Quant < 0.0120 Total Protein Albumin Globulin Albumin/Globulin Ratio Procalcitonin Free T4 Thyroxine (T4) TSH 3rd Generation Cortisol AM Sample Venous Blood Potassium Urine Color Urine Clarity Urine pH Ur Specific [place] Urine Protein Urine Glucose (UA) Urine Ketones Urine Blood Urine Nitrate Urine Bilirubin Urine Urobilinogen Ur Leukocyte Esterase Urine WBC (Auto) Urine RBC (Auto) Ur Squamous Epith Cells 11/15/16 11/15/16 11/15/16 08:41 11:35 11:56 WBC RBC Hgb Hct MCV MCH MCHC RDW Plt Count MPV Neut % (Auto) Lymph % (Auto) [place] % (Auto) Eos % (Auto) Baso % (Auto) Neut # Lymph # [place] # Eos # Baso # pO2 VBG pH VBG pCO2 VBG HCO3 VBG Total CO2 VBG O2 Sat (Calc) VBG Base Excess VBG Potassium Sodium 140 Chloride 110 H Glucose Lactate Potassium 4.8 Carbon Dioxide 21 L Anion Gap 14 BUN 49 H Creatinine 4.2 H Est GFR ( Amer) 13 Est GFR (Non-Af Amer) 11 POC Glucose (mg/dL) 149 H Random Glucose 84 Calcium 8.2 L Total Bilirubin 0.5 AST 19 ALT 24 Alkaline Phosphatase 200 H Total Creatine Kinase CK-MB (Mass) Troponin I, Quant Total Protein 6.9 Albumin 3.3 L Globulin 3.7 Albumin/Globulin Ratio 0.9 L Procalcitonin Free T4 1.43 Thyroxine (T4) 7.29 TSH 3rd Generation < 0.02 L Cortisol AM Sample 8.1 Venous Blood Potassium Urine Color Urine Clarity Urine pH Ur Specific [place] Urine Protein Urine Glucose (UA) Urine Ketones Urine Blood Urine Nitrate Urine Bilirubin Urine Urobilinogen Ur Leukocyte Esterase Urine WBC (Auto) Urine RBC (Auto) Ur Squamous Epith Cells
--- NOTE | 2016-11-15 15:53 | CP.PCM.PN ---
Objective - Vital Signs/Intake and Output Vital Signs (last 24 hours): Temp Pulse Resp BP Pulse Ox 98 F 71 20 165/95 H 99 11/15/16 14:45 11/15/16 14:45 11/15/16 14:45 11/15/16 14:45 11/15/16 07:34 - Medications Medications: Current Medications Artificial Tears (Artificial Tears) 0.1 ml OU Q6H PRN PRN Reason: Dry eyes Cyclobenzaprine HCl (Flexeril) 5 mg PO TID [facility] Last Admin: 11/15/16 14:04 Dose: 5 mg Gabapentin (Neurontin) 100 mg PO TID [facility] Last Admin: 11/15/16 13:57 Dose: 100 mg Heparin Sodium (Porcine) (Heparin) 5,000 units SC Q12 [facility] Last Admin: 11/15/16 09:54 Dose: 5,000 units Sodium Chloride (Sodium Chloride 0.9%) 1,000 mls @ 40 mls/hr IV .Q24H [facility] Last Admin: 11/14/16 21:45 Dose: 40 mls/hr Cefepime HCl (Maxipime Iv 1 Gm Premix) 1 gm in 50 mls @ 100 mls/hr IVPB Q24H [facility] Last Admin: 11/14/16 21:42 Dose: 100 mls/hr Insulin Human Regular (Novolin R) 0 unit SC ACHS [facility] PRN Reason: Protocol Last Admin: 11/15/16 12:12 Dose: Not Given Metoprolol Tartrate (Lopressor) 100 mg PO BID [facility] Last Admin: 11/15/16 09:52 Dose: 100 mg Nebivolol (Bystolic) 10 mg PO DAILY [facility] Last Admin: 11/15/16 09:53 Dose: 10 mg Nifedipine (Procardia Xl) 60 mg PO DAILY [facility] Last Admin: 11/15/16 10:06 Dose: 60 mg Ofloxacin (Ocuflox Ophth 0.3%) 1 ml OU Q4H [facility] Last Admin: 11/15/16 13:57 Dose: 1 drop Oxycodone/Acetaminophen (Percocet 5/325 Mg Tab) 1 tab PO Q8H PRN PRN Reason: Pain, moderate (4-7) Stop: 11/17/16 18:37 Last Admin: 11/15/16 14:02 Dose: 1 tab Pantoprazole Sodium (Protonix Ec Tab) 40 mg PO DAILY [facility] Last Admin: 11/15/16 09:53 Dose: 40 mg Prednisone (Prednisone Tab) 5 mg PO DAILY [facility] Last Admin: 11/15/16 09:53 Dose: 5 mg - Labs Labs: 11/15/16 08:41 11/15/16 08:41 PT 13.6 SECONDS (9.7-12.2) H 11/14/16 14:33 INR 1.2 11/14/16 14:33 APTT 32 SECONDS (21-34) 11/14/16 14:33
--- NOTE | 2016-11-15 16:25 | CON ---
DATE: 11/15/2016 REQUESTING PHYSICIAN: Dr. Lane. HISTORY OF PRESENT ILLNESS: This patient is a 60-year-old female. She has history of hypertension, diabetes, rheumatoid arthritis, GERD and she just recently underwent cataract surgery on her right ey e with glaucoma and cataract surgery. She was referred by the diagnostic cardiac sonographer to have Dopplers done here as she has bilateral leg swelling and erythema. She says she was down in [place] for a month to attend her younger brother's who of some cardiac events. She fell at home 2 months a go. She was almost going blind without this procedure, which she had on the eye this . She also had an x-ray done as an outpatient which showed fracture in her right heel she says and she comp lains of dizziness. She also had trauma to her head from a heavy frozen chicken which fell out of freezer on her head in September and she also suffers from neuropathy in both lower extremities and she has chronic rheumatoid arthritis as well as gets muscle spasms. She also visited a seafood place fo r niece's birthday where it was a seafood place and SHE IS ALLERGIC TO IT, but she ate a burger and j ust to keep in mind SHE IS ALLERGIC TO SEAFOOD and if there was a cross contamination from the grill where they made the burger. Her PMD is Dr. Elkins. PAST MEDICAL HISTORY: Significant for rheumatoid arthritis, diabetes mellitus, hypertension, catarac ts, glaucoma, muscle spasms and diabetic neuropathy. PAST SURGICAL HISTORY: Significant for eye surgery recently and a knee surgery. FAMILY HISTORY: Mother in a motor vehicle accident. Younger brother just of heart condition and multiple family members of cardiac disease. SOCIAL HISTORY: Former smoker, 1 pack per day for 40 years and she quit 2 weeks ago. Denies any alc ohol. Lives with her daughter. ALLERGIES: SHE IS ALLERGIC TO TRAMADOL IODINE, PENICILLIN, CODEINE AND IT IS WRITTEN THERE ALSO SEAF OOD AND VANCOMYCIN. REVIEW OF SYSTEMS: She denies any fevers at this time, but she states she may have had fevers. She just came in yesterday as she had cataract surgery done on and she had an appointment for t hat and ____ . She has shortness of breath. Denies any cough. Denies any nausea, vomiting. Denies any urinary symptoms. She does have back pain. She also has dry skin. She has this swelling and r edness on both lower extremities. She has history of frequent falls as she is going legally blind. She just went for cataract surgery. She smokes less than 10 cigarettes a day. Denies any drug abuse . She has diabetes for 9 years she says and arthritis, rheumatoid arthritis, history of anxiety, dep ression. Surgical history is also significant for cholecystectomy, knee surgery as well as this eye surgery. S HE IS ALLERGIC TO VANCOMYCIN, SEAFOOD, SULFA, PENICILLIN, IODINE, CODEINE. MEDICATIONS AT PRESENT TIME: She is on cefepime, cyclobenzaprine, gabapentin, heparin subQ, metoprol ol, I do not know why she would be getting both, Bystolic and nifedipine, ofloxacin, oxycodone, panto prazole, prednisone. Blood cultures were received yesterday, 1 set and she had a renal ultrasound done. She is on cefepim e 1 gram q. 24. She is complaining of weakness. No nasal congestion, has shortness of breath. No cough, no abdomina l pain, no nausea, no vomiting, no urinary symptoms. She does have back pain. She has a rash. She has a history of falls and dizziness and bilateral lower extremity edema. She also had a fracture of her heel and suffers from arthritis and has anxiety and depression. PHYSICAL EXAMINATION: VITAL SIGNS: I find her temperature is 98.2, pulse 74, blood pressure 179/82, respirations are 20. HEENT: Head is atraumatic, normocephalic. Eyes: She has glasses on and is status post surgery. T ongue is moist. NECK: Supple. MIKALA is flat. LUNGS: Clear to auscultation. Chest wall is symmetrical. No crackles or rales present. HEART: S1, S2 is regular. No murmurs appreciated. ABDOMEN: Flabby. Soft, nontender. BACK: May have some dark ____ patch on the left back, which she has been itching, will have a rash. EXTREMITIES: Otherwise bilateral edema present. There is rash on the left leg, which is extending a nd there is some warmth to it. So I would leave the Maxipime on as I am not clear if it is celluliti s or just a rash at this time. LABORATORY DATA: Noted. Labs show white count is 7, hemoglobin 9.3, hematocrit 28.5, platelet count is 228. Sodium is 140, potassium 4.8, chloride 110, anion gap is 14, and creatinine is 4.2. Creati nine is high. Her TSH was low, but T4 is okay ____ . There are no microbiology reports. She had a renal ultrasound, reports are pending. She had a foot x-ray which showed soft tissue swelling withou t acute articular or osseous abnormalities. There is no fracture reported on this x-ray, so I am not sure what she was mentioning about the heel fracture. She also had a chest x-ray. The chest x-ray shows no active disease. So at this time, I think I will continue with Maxipime for cellulitis, bilateral leg edema she has, s he has renal insufficiency, she is diabetic; but it could be a reaction to some allergen causing this rash in the lower extremities, it is unclear. She did travel to [place] and stayed there for a month. Will follow. Fernando Hubbard MD cc: [id number] TT: 11/15/2016 16:24:47 Confirmation # [id number] Dictation # [id number] walalce
[2016-11-15] MEDS: Sodium Chloride 0.9% 1,000 ML IV SCH (18:45)
--- NOTE | 2016-11-15 19:12 | CP.PCM.PN ---
<Dimitry Ying - Last Filed: 11/16/16 14:24> Objective - Vital Signs/Intake and Output Vital Signs (last 24 hours): Temp Pulse Resp BP Pulse Ox 98.8 F 74 20 180/103 H 95 11/16/16 08:18 11/16/16 10:20 11/16/16 08:18 11/16/16 10:20 11/16/16 08:18 Intake and Output: 11/16/16 11/16/16 06:59 18:59 Intake Total 1340 Balance 1340 - Medications Medications: Current Medications Artificial Tears (Artificial Tears) 0.1 ml OU Q6H PRN PRN Reason: Dry eyes Calcium Acetate (Phoslo) 667 mg PO BIDCC [facility] Cyclobenzaprine HCl (Flexeril) 5 mg PO TID [facility] Last Admin: 11/16/16 13:58 Dose: 5 mg Gabapentin (Neurontin) 100 mg PO TID [facility] Last Admin: 11/16/16 13:58 Dose: 100 mg Heparin Sodium (Porcine) (Heparin) 5,000 units SC Q12 [facility] Last Admin: 11/16/16 10:17 Dose: 5,000 units Home Med (Home Med) 1 unit OD TID [facility] Last Admin: 11/16/16 14:04 Dose: 1 unit Home Med (Home Med) 1 unit OD TID [facility] Last Admin: 11/16/16 14:04 Dose: 1 unit Home Med (Home Med) 1 unit OD DAILY [facility] Last Admin: 11/16/16 10:18 Dose: 1 unit Home Med (Home Med) 1 unit OU HS [facility] Last Admin: 11/15/16 21:25 Dose: 1 unit Home Med (Home Med) 1 unit OU BID [facility] Last Admin: 11/16/16 10:19 Dose: 1 unit Hydralazine HCl (Apresoline) 25 mg PO Q6H [facility] Last Admin: 11/16/16 14:00 Dose: 25 mg Sodium Chloride (Sodium Chloride 0.9%) 1,000 mls @ 40 mls/hr IV .Q24H [facility] Last Admin: 11/16/16 06:06 Dose: 40 mls/hr Cefepime HCl (Maxipime Iv 1 Gm Premix) 1 gm in 50 mls @ 100 mls/hr IVPB Q24H [facility] Last Admin: 11/15/16 20:16 Dose: 100 mls/hr Insulin Human Regular (Novolin R) 0 unit SC ACHS [facility] PRN Reason: Protocol Last Admin: 11/16/16 12:31 Dose: 2 unit Metoprolol Tartrate (Lopressor) 100 mg PO BID [facility] Last Admin: 11/16/16 10:17 Dose: 100 mg Nebivolol (Bystolic) 10 mg PO DAILY [facility] Last Admin: 11/16/16 10:16 Dose: 10 mg Nifedipine (Procardia Xl) 60 mg PO DAILY [facility] Last Admin: 11/16/16 10:17 Dose: 60 mg Oxycodone HCl (Oxycontin Extended Release Tab) 20 mg PO Q12 [facility] Last Admin: 11/16/16 13:58 Dose: 20 mg Oxycodone/Acetaminophen (Percocet 5/325 Mg Tab) 2 tab PO Q6H PRN PRN Reason: Pain, moderate (4-7) Stop: 11/18/16 20:09 Last Admin: 11/16/16 08:13 Dose: 2 tab Pantoprazole Sodium (Protonix Ec Tab) 40 mg PO DAILY [facility] Last Admin: 11/16/16 10:17 Dose: 40 mg Prednisone (Prednisone Tab) 5 mg PO DAILY [facility] Last Admin: 11/16/16 10:17 Dose: 5 mg - Labs Labs: 11/15/16 08:41 11/16/16 07:11 PT 13.6 SECONDS (9.7-12.2) H 11/14/16 14:33 INR 1.2 11/14/16 14:33 APTT 32 SECONDS (21-34) 11/14/16 14:33 Attending/Attestation - Attestation I have personally seen and examined this patient.: Yes I have fully participated in the care of the patient.: Yes I have reviewed all pertinent clinical information, including history, physical exam and plan: Yes Notes (Text): 11/16/16 14:24 I saw and examined this patient at bedside. she appeared comfortable eating breakfast. referring SOB on exertion, bilateral leg swelling with the rash on the distal 1/3 left leg. No fever, nausea, vomits, chest pain, dysuria nor urinary frequency. Exam> Obese, comfortable , no respiratory distress. Resp: Distal breath sounds globally CVS S1 S2 regular and rhythmic. no murmurs, no gallops Abdomen> Obese, soft, non-tender, +ve bowel sounds Ext: 1+ edema at both lower extremities, brown colored macular fash diffuse at the lower 1/3 left leg, no blanching, non tender Neuro: Alert, Non focal A&P: #. Acute on chronic Kidney disease - Nephrology on consult - Continue gently rehydration - follow Renal US #. Bilateral Leg edema, probably due to the Renal failure, infection,CHF venous stasis or Medication,Patient on Calcium channel Inhibitor - follow ECHO - ID on consult - elevate legs - possible wrapping of legs will assist in treatment of the edema - Continue with empiric antibiotics. #. DM with hypoglycemia. Due to poor intake vs increased antiglycemic meds in light of CKD Monitor Blood Glucose and treat accordingly with regular Insulin on Sliding scale - Follow HbA1c #. HTN - Continue with Metoprolol - consider holding Bystolic as it is also Beta Alessnadro - consider Changing Nifedipine if Edema continues after treatment of rash and kidney disease. - follow Bp #. Diabetic Neuropathy - continue Gabapentin #. DVT Prophylaxis with Heparin SubQ #. Code Status : Full Dimitry Ying MD 11/16/16 14:46 <Chase Evans - Last Filed: 11/16/16 18:22> Subjective - Date & Time of Evaluation Date of Evaluation: 11/15/16 Time of Evaluation: 09:14 - Subjective Subjective: Pt seen and examined. Pt reports that she has pain in her legs. She reports that she has been getting tired more easily lately Objective - Vital Signs/Intake and Output Vital Signs (last 24 hours): Temp Pulse Resp BP Pulse Ox 98.2 F 66 20 160/83 H 98 11/15/16 15:53 11/15/16 15:53 11/15/16 15:53 11/15/16 15:53 11/15/16 15:53 Intake and Output: 11/15/16 11/16/16 18:59 06:59 Intake Total 800 Balance 800 - Medications Medications: Current Medications Artificial Tears (Artificial Tears) 0.1 ml OU Q6H PRN PRN Reason: Dry eyes Cyclobenzaprine HCl (Flexeril) 5 mg PO TID [facility] Last Admin: 11/15/16 18:01 Dose: 5 mg Gabapentin (Neurontin) 100 mg PO TID [facility] Last Admin: 11/15/16 18:01 Dose: 100 mg Heparin Sodium (Porcine) (Heparin) 5,000 units SC Q12 [facility] Last Admin: 11/15/16 09:54 Dose: 5,000 units Sodium Chloride (Sodium Chloride 0.9%) 1,000 mls @ 40 mls/hr IV .Q24H [facility] Last Admin: 11/14/16 21:45 Dose: 40 mls/hr Cefepime HCl (Maxipime Iv 1 Gm Premix) 1 gm in 50 mls @ 100 mls/hr IVPB Q24H [facility] Last Admin: 11/14/16 21:42 Dose: 100 mls/hr Insulin Human Regular (Novolin R) 0 unit SC ACHS [facility] PRN Reason: Protocol Last Admin: 11/15/16 18:00 Dose: 2 unit Metoprolol Tartrate (Lopressor) 100 mg PO BID [facility] Last Admin: 11/15/16 18:01 Dose: 100 mg Nebivolol (Bystolic) 10 mg PO DAILY [facility] Last Admin: 11/15/16 09:53 Dose: 10 mg Nifedipine (Procardia Xl) 60 mg PO DAILY [facility] Last Admin: 11/15/16 10:06 Dose: 60 mg Ofloxacin (Ocuflox Ophth 0.3%) 1 ml OU Q4H [facility] Last Admin: 11/15/16 18:01 Dose: 1 drop Oxycodone/Acetaminophen (Percocet 5/325 Mg Tab) 1 tab PO Q8H PRN PRN Reason: Pain, moderate (4-7) Stop: 11/17/16 18:37 Last Admin: 11/15/16 14:02 Dose: 1 tab Pantoprazole Sodium (Protonix Ec Tab) 40 mg PO DAILY [facility] Last Admin: 11/15/16 09:53 Dose: 40 mg Prednisone (Prednisone Tab) 5 mg PO DAILY [facility] Last Admin: 11/15/16 09:53 Dose: 5 mg - Labs Labs: 11/15/16 08:41 11/15/16 08:41 PT 13.6 SECONDS (9.7-12.2) H 11/14/16 14:33 INR 1.2 11/14/16 14:33 APTT 32 SECONDS (21-34) 11/14/16 14:33 - Constitutional Appears: No Acute Distress - Head Exam Head Exam: ATRAUMATIC, NORMOCEPHALIC - Eye Exam Eye Exam: EOMI - ENT Exam ENT Exam: Mucous Membranes Moist. absent: Mucous Membranes Dry - Respiratory Exam Respiratory Exam: Clear to Ausculation Bilateral. absent: Rhonchi, Wheezes - Cardiovascular Exam Cardiovascular Exam: +S1, +S2. absent: Gallop, Rubs - GI/Abdominal Exam GI & Abdominal Exam: Soft. absent: Tenderness - Extremities Exam Extremities Exam: Pedal Edema, Tenderness - Neurological Exam Neurological Exam: Alert, Awake, Oriented x3 - Psychiatric Exam Psychiatric exam: Depressed, Normal Affect - Skin Skin Exam: Normal Color, Warm Assessment and Plan - Assessment and Plan (Free Text) Assessment: Lower Extremity swelling and erythema suspect cellulitis Cardiology, Dr. Simmons, consulted. Help appreciated. Echocardiogram pending Lower extremity venous doppler negative for DVT b/l foot xray: soft tissue swelling without acute articular or osseous abnormality blood cultures drawn in ED, will follow up result cefepime 1g q24h- patient does have history of penicillin allergy, we will monitor patient for signs of allergic reaction ID consult, Dr. Hubbard- help appreciated Glaucoma: Home glaucoma and cataract drops as per MAR Depression: Psych, Dr. Farrell, consulted. Help appreciated. JESSICA on CKD will give gentle IV fluid hydration of NS @40cc/h, monitor for signs of fluid overload Nephrology consult- Dr. Morillo- help appreciated Hypoglycemia suspected from adrenal insufficiency secondary to her long standing use of prednisone will check AM cortisol level accuchecks q4h HTN bystolic 10mg daily lopressor 100mg BID nifedipine 60mg daily monitor on tele Diabetes accuchecks q4h ISS mod consistent carb diet Diabetic Neuropathy reducing home dose of gabapentin to 100mg TID due to renal insufficiency Muscle Spasm Flexeril 5mg TID Rheumatoid arthritis continue prednisone daily Prophylactic measure heparin 5000 q12h protonix 40mg daily percocent 5/325 q8prn pain
[2016-11-15] MEDS ORDERED: SIMBRINZA OU SCH (20:15)
[2016-11-15] MEDS: Cefepime IV 1 gm in Dextrose 1 GM/50 ML BAG IVPB SCH (20:16)
--- NOTE | 2016-11-15 20:19 | CARD ---
APPROVED REPORT EXAM: Two-dimensional and M-mode echocardiogram with Doppler and color Doppler. Other Information Quality : GoodRhythm : NSR INDICATION Dyspnea Murmur FREQUENT FALLS ACUTE ON CHRONIC RENAL INS, LE SWELLING RISK FACTORS Hypertension Hyperlipidemia M-Mode DIMENSIONS RVDd1.39 (2.1-3.2cm)Left Atrium (MM)4.20 (2.5-4.0cm) IVSd0.98 (0.7-1.1cm)Aortic Root2.64 (2.2-3.7cm) LVDd5.47 (4.0-5.6cm)Aortic Cusp Exc.1.87 (1.5-2.0cm) PWd0.98 (0.7-1.1cm)FS (%) 45 % LVDs3.01 (2.0-3.8cm)LVEF (%)76 (>50%) Aortic Valve AoV Peak Fopyflxb960.9cm/Isaac Peak GR.17mmHg Mitral Valve MV E Rbadmxol386.0cm/sMV A Jvrdnmbe904.4cm/sE/A ratio0.9 TDI E/Lateral E'0.0E/Medial E'0.0 Tricuspid Valve TR Peak Wfsffixi023zn/sTR Peak Gr.[id number] LEFT VENTRICLE The left ventricle is normal size. There is normal left ventricular wall thickness. The left ventricular function is normal. The left ventricular ejection fraction is within the normal range. There is normal LV segmental wall motion. Transmitral Doppler flow pattern is Grade I-abnormal relaxation pattern. No left ventricle thrombus noted on this study. RIGHT VENTRICLE The right ventricle is normal size. There is normal right ventricular wall thickness. The right ventricular systolic function is normal. ATRIA The left atrium is borderline dilated. The right atrium size is normal. AORTIC VALVE The aortic valve is not well visualized. No aortic regurgitation is present. MITRAL VALVE The mitral valve is mildly thickened. There is no evidence of mitral valve prolapse. TRICUSPID VALVE There is mild to moderate pulmonary hypertension. GREAT VESSELS The aortic root is normal in size. The IVC is normal in size and collapses >50% with inspiration. PERICARDIAL EFFUSION There is no pericardial effusion. <Conclusion> The left ventricle is normal size. There is normal left ventricular wall thickness. The left ventricular function is normal. The left ventricular ejection fraction is within the normal range. There is normal LV segmental wall motion. There is mild to moderate pulmonary hypertension. Transmitral Doppler flow pattern is Grade I-abnormal relaxation pattern.
[2016-11-15] MEDS: TRAVATAN OU SCH (21:25)
[2016-11-16] MEDS: Sodium Chloride 0.9% 1,000 ML IV SCH ×2 (06:06→18:45)
[2016-11-16 07:53] LABS: POTASSIUM 4.8 mmol/L (3.6-5.2)
[2016-11-16 07:56] LABS: CALCIUM 8.8 mg/dl (8.6-10.4); PHOSPHOROUS 5.2 mg/dL (2.5-4.5)
[2016-11-16] MEDS: Oxycodone/Acetaminophen 5/325 mg Tab PO PRN (08:13)
[2016-11-16] MEDS: (Novolin R) Insulin Human Regular 100 units/ml vial SC SCH ×4 (08:13→21:42)
[2016-11-16] MEDS ORDERED: Home Med 1 UNIT OD SCH (10:00)
[2016-11-16] MEDS: Pantoprazole 40 mg EC Tab PO SCH (10:17)
[2016-11-16] MEDS: NIFEdipine 60 mg ER Tab PO SCH (10:17)
[2016-11-16] MEDS: PROLENSA OD SCH (10:18)
[2016-11-16] MEDS: BESIVANCE OD SCH ×3 (10:19→18:24)
[2016-11-16] MEDS: SIMBRINZA OU SCH ×2 (10:19→18:24)
[2016-11-16 11:08] LABS: FT3 6.19 pg/mL (2.77-5.27)
--- NOTE | 2016-11-16 11:51 | CP.PCM.PN ---
Subjective - Date & Time of Evaluation Date of Evaluation: 11/16/16 Time of Evaluation: 11:15 - Subjective Subjective: Podiatry Progress Note for Dr. Wright. 60 y/o female patient seen at bedside this morning for f/u of lower extremity edema and erythema. Pt seen resting at bedside chair at time of visit. Denies any acute events overnight. Denies f/n/v/c/sob/cp. Does complain of pain to the right foot arch today. Says percocet is not helping the pain. Also complains of persistent right calf pain today. Denies any pain or discomfort to the left leg today. Denies any other problems today. Objective - Vital Signs/Intake and Output Vital Signs (last 24 hours): Temp Pulse Resp BP Pulse Ox 98.8 F 76 20 175/81 H 95 11/16/16 08:18 11/16/16 08:18 11/16/16 08:18 11/16/16 08:18 11/16/16 08:18 Intake and Output: 11/16/16 11/16/16 06:59 18:59 Intake Total 1340 Balance 1340 - Medications Medications: Current Medications Artificial Tears (Artificial Tears) 0.1 ml OU Q6H PRN PRN Reason: Dry eyes Cyclobenzaprine HCl (Flexeril) 5 mg PO TID [facility] Last Admin: 11/16/16 10:17 Dose: 5 mg Gabapentin (Neurontin) 100 mg PO TID [facility] Last Admin: 11/16/16 10:17 Dose: 100 mg Heparin Sodium (Porcine) (Heparin) 5,000 units SC Q12 [facility] Last Admin: 11/16/16 10:17 Dose: 5,000 units Home Med (Home Med) 1 unit OD TID [facility] Last Admin: 11/16/16 10:19 Dose: 1 unit Home Med (Home Med) 1 unit OD TID [facility] Last Admin: 11/16/16 10:18 Dose: 1 unit Home Med (Home Med) 1 unit OD DAILY [facility] Last Admin: 11/16/16 10:18 Dose: 1 unit Home Med (Home Med) 1 unit OU HS [facility] Last Admin: 11/15/16 21:25 Dose: 1 unit Home Med (Home Med) 1 unit OU BID [facility] Last Admin: 11/16/16 10:19 Dose: 1 unit Sodium Chloride (Sodium Chloride 0.9%) 1,000 mls @ 40 mls/hr IV .Q24H [facility] Last Admin: 11/16/16 06:06 Dose: 40 mls/hr Cefepime HCl (Maxipime Iv 1 Gm Premix) 1 gm in 50 mls @ 100 mls/hr IVPB Q24H [facility] Last Admin: 11/15/16 20:16 Dose: 100 mls/hr Insulin Human Regular (Novolin R) 0 unit SC ACHS [facility] PRN Reason: Protocol Last Admin: 11/16/16 08:13 Dose: 1 unit Metoprolol Tartrate (Lopressor) 100 mg PO BID [facility] Last Admin: 11/16/16 10:17 Dose: 100 mg Nebivolol (Bystolic) 10 mg PO DAILY [facility] Last Admin: 11/16/16 10:16 Dose: 10 mg Nifedipine (Procardia Xl) 60 mg PO DAILY [facility] Last Admin: 11/16/16 10:17 Dose: 60 mg Oxycodone/Acetaminophen (Percocet 5/325 Mg Tab) 2 tab PO Q6H PRN PRN Reason: Pain, moderate (4-7) Stop: 11/18/16 20:09 Last Admin: 11/16/16 08:13 Dose: 2 tab Pantoprazole Sodium (Protonix Ec Tab) 40 mg PO DAILY [facility] Last Admin: 11/16/16 10:17 Dose: 40 mg Prednisone (Prednisone Tab) 5 mg PO DAILY [facility] Last Admin: 11/16/16 10:17 Dose: 5 mg - Labs Labs: 11/15/16 08:41 11/16/16 07:11 PT 13.6 SECONDS (9.7-12.2) H 11/14/16 14:33 INR 1.2 11/14/16 14:33 APTT 32 SECONDS (21-34) 11/14/16 14:33 - Constitutional Appears: Non-toxic, No Acute Distress - Extremities Exam Additional comments: BL low ext. exam: VASC: Dp/PT pulses palpable, cap refill < 3 sec to digits x 10, mild pedal edema noted to RLE, skin temp is warm to warm BL DERM: no open wounds noted, moderate erythema noted to distal LLE (margins marked with marking pen and appears to be resolving) Ortho: (+) tenderness to palp of right posterior leg, tenderness to palp of medial arch right foot, (-) tenderness to palp of posterior left leg NEURO: diminished protective and light touch sensation BL - Neurological Exam Neurological Exam: Alert, Awake, Oriented x3 - Psychiatric Exam Psychiatric exam: Normal Affect, Normal Mood Assessment and Plan - Assessment and Plan (Free Text) Assessment: 60 y/o female patient with bilateral lower extremities swelling and resolving erythema left leg Plan: Patient seen and evaluated at bedside Plan discussed with attending Dr. Wright in detail Low ext venous Duplex: Negative DVT Chart, labs and vitals reviewed: afebile, no leukocytosis JESSICA on CKD- f/u nephrology recommendations IV abx per ID (cefepime) Discussed with primary, oxycontin SR to be added to pain regimen R foot x-ray: Right calcaneus avulsion fracture was noted. Pt is to ambulate with CAM boot which is at bedside Stable per podiatry, will continue to follow while she remains in house.
[2016-11-16] MEDS: oxyCODONE 20 mg ER Tab (oxyCONTIN) PO SCH ×2 (13:58→21:50)
--- NOTE | 2016-11-16 13:58 | CP.PCM.PN ---
Subjective - Date & Time of Evaluation Date of Evaluation: 11/16/16 Time of Evaluation: 13:56 - Subjective Subjective: PGY-1 note for hospitalist service Pt seen and examined at bedside. Pt still very emotionally labile and cries when conversating. Pt is very upset about her brothers and would like to talk to someone about it. Pt otherwise doing well with minimal complaints of pain. Denies fevers, chills, chest pain, sob, nausea or vomiting. Objective - Vital Signs/Intake and Output Vital Signs (last 24 hours): Temp Pulse Resp BP Pulse Ox 98.8 F 74 20 180/103 H 95 11/16/16 08:18 11/16/16 10:20 11/16/16 08:18 11/16/16 10:20 11/16/16 08:18 Intake and Output: 11/16/16 11/16/16 06:59 18:59 Intake Total 1340 Balance 1340 - Medications Medications: Current Medications Artificial Tears (Artificial Tears) 0.1 ml OU Q6H PRN PRN Reason: Dry eyes Calcium Acetate (Phoslo) 667 mg PO BIDCC [facility] Cyclobenzaprine HCl (Flexeril) 5 mg PO TID [facility] Last Admin: 11/16/16 10:17 Dose: 5 mg Gabapentin (Neurontin) 100 mg PO TID [facility] Last Admin: 11/16/16 10:17 Dose: 100 mg Heparin Sodium (Porcine) (Heparin) 5,000 units SC Q12 [facility] Last Admin: 11/16/16 10:17 Dose: 5,000 units Home Med (Home Med) 1 unit OD TID [facility] Last Admin: 11/16/16 10:19 Dose: 1 unit Home Med (Home Med) 1 unit OD TID [facility] Last Admin: 11/16/16 10:18 Dose: 1 unit Home Med (Home Med) 1 unit OD DAILY [facility] Last Admin: 11/16/16 10:18 Dose: 1 unit Home Med (Home Med) 1 unit OU HS [facility] Last Admin: 11/15/16 21:25 Dose: 1 unit Home Med (Home Med) 1 unit OU BID [facility] Last Admin: 11/16/16 10:19 Dose: 1 unit Hydralazine HCl (Apresoline) 25 mg PO Q6H [facility] Sodium Chloride (Sodium Chloride 0.9%) 1,000 mls @ 40 mls/hr IV .Q24H [facility] Last Admin: 11/16/16 06:06 Dose: 40 mls/hr Cefepime HCl (Maxipime Iv 1 Gm Premix) 1 gm in 50 mls @ 100 mls/hr IVPB Q24H [facility] Last Admin: 11/15/16 20:16 Dose: 100 mls/hr Insulin Human Regular (Novolin R) 0 unit SC ACHS [facility] PRN Reason: Protocol Last Admin: 11/16/16 12:31 Dose: 2 unit Metoprolol Tartrate (Lopressor) 100 mg PO BID [facility] Last Admin: 11/16/16 10:17 Dose: 100 mg Nebivolol (Bystolic) 10 mg PO DAILY [facility] Last Admin: 11/16/16 10:16 Dose: 10 mg Nifedipine (Procardia Xl) 60 mg PO DAILY [facility] Last Admin: 11/16/16 10:17 Dose: 60 mg Oxycodone HCl (Oxycontin Extended Release Tab) 20 mg PO Q12 [facility] Oxycodone/Acetaminophen (Percocet 5/325 Mg Tab) 2 tab PO Q6H PRN PRN Reason: Pain, moderate (4-7) Stop: 11/18/16 20:09 Last Admin: 11/16/16 08:13 Dose: 2 tab Pantoprazole Sodium (Protonix Ec Tab) 40 mg PO DAILY [facility] Last Admin: 11/16/16 10:17 Dose: 40 mg Prednisone (Prednisone Tab) 5 mg PO DAILY [facility] Last Admin: 11/16/16 10:17 Dose: 5 mg - Labs Labs: 11/15/16 08:41 11/16/16 07:11 PT 13.6 SECONDS (9.7-12.2) H 11/14/16 14:33 INR 1.2 11/14/16 14:33 APTT 32 SECONDS (21-34) 11/14/16 14:33 - Constitutional Appears: Non-toxic, No Acute Distress - Head Exam Head Exam: ATRAUMATIC, NORMOCEPHALIC - Respiratory Exam Respiratory Exam: Clear to Ausculation Bilateral, NORMAL BREATHING PATTERN - Cardiovascular Exam Cardiovascular Exam: +S1, +S2 - GI/Abdominal Exam GI & Abdominal Exam: Soft, Normal Bowel Sounds - Extremities Exam Additional comments: Significantly less erythema noted on left lower extremity. - Neurological Exam Neurological Exam: Alert, Awake - Psychiatric Exam Psychiatric exam: Depressed - Skin Skin Exam: Dry, Warm Assessment and Plan - Assessment and Plan (Free Text) Assessment: Lower Extremity swelling and erythema suspect cellulitis Lower extremity venous doppler negative for DVT b/l foot xray: soft tissue swelling without acute articular or osseous abnormality procalcitonin - low blood cultures - negative after 24 hours Cont cefepime as per ID ID consult, Dr. Hubbard- help appreciated follow up any recommendations Echo normal JESSICA on CKD Cr decreased from 4.5 to 4.1 Cont IV fluid hydration of NS @40cc/h, monitor for signs of fluid overload Nephrology consult- Dr. Morillo- help appreciated Acute kidney injury on chronic kidney disease Multiple etiologies possible - suspect volume depletion along with sepsis induced renal failure, can not exclude obstruction and nephrotoxicity Progression of ckd possible as well Agree with IVF and empiric abx No nephrotoxins Renal ultrasound ordered Hypoglycemia AM cortisol levels wnl accuchecks q4h HTN bystolic 10mg daily lopressor 100mg BID nifedipine 60mg daily Add hydralazine 25mg Q6h monitor on tele Diabetes accuchecks q4h ISS mod consistent carb diet Diabetic Neuropathy gabapentin 100mg TID Muscle Spasm Flexeril 5mg TID Rheumatoid arthritis continue prednisone daily Hyperphosphatemia Started Phoslo Monitor Depression Pt emotionally labile Psych consult - help appreciated Prophylactic measure heparin 5000 q12h protonix 40mg daily percocent 5/325 q8prn pain
--- NOTE | 2016-11-16 14:37 | CP.PCM.CON ---
History of Present Illness - History of Present Illness History of Present Illness: 60-year-old lady with prior history of type 2 diabetes, hypertension and dyslipidemia, she had renal insufficiency and was sent to be evaluated by her commercial sales director because of leg edema and erythema, no deep vein thrombosis were demonstrated and an echocardiogram revealed normal left ventricular contractility with decreased compliance in addition to moderate pulmonary artery hypertension at the level of 47 mmHg. She is with obesity improving with her legs on antibiotically seen by infectious disease. She is stable cardiac- crowe she would need an exercise stress test as outpatient due to high risk factors including diabetes and positive family history. Review of Systems - Review of Systems Systems not reviewed;Unavailable: Unstable Vital Signs - Constitutional Constitutional: Anorexia, Weakness - EENT Eyes: absent: Discharge Ears: absent: Ear Discharge, Dizziness Nose/Mouth/Throat: absent: Epistaxis - Cardiovascular Cardiovascular: Dyspnea on Exertion. absent: Acrocyanosis, Chest Pain, Palpitations, Syncope - Respiratory Respiratory: Cough, Dyspnea. absent: Hemoptysis - Gastrointestinal Gastrointestinal: absent: Abdominal Pain, Dyspepsia, Hematochezia, Vomiting - Genitourinary Genitourinary: absent: Change in Urinary Stream - Reproductive: Female Reproductive:Female: Post Menopausal Past Patient History - Past Medical History & Family History Past Medical History?: Yes - Past Social History Smoking Status: Light Smoker < 10 Cigarettes Daily - CARDIAC Hx Cardiac Disorders: Yes Hx Hypertension: Yes - ENDOCRINE/METABOLIC Hx Endocrine Disorders: Yes Hx Diabetes Mellitus Type 2: Yes - MUSCULOSKELETAL/RHEUMATOLOGICAL Hx Musculoskeletal Disorders: Yes Hx Arthritis: Yes Hx Rheumatoid Arthritis: Yes - PSYCHIATRIC Hx Psychophysiologic Disorder: Yes Hx Anxiety: Yes Hx Depression: Yes Hx Substance Use: No - SURGICAL HISTORY Hx Surgeries: Yes Hx Cataract Extraction: Yes Hx Cholecystectomy: Yes Hx Eye Surgery: Yes Hx Hysterectomy: Yes Other/Comment: vascular surgery - ANESTHESIA Hx Anesthesia: Yes Hx Anesthesia Reactions: No Meds Allergies/Adverse Reactions: Allergies Allergy/AdvReac Type Severity Reaction Status Date / Time codeine Allergy Verified 11/14/16 12:54 Iodine and Iodide Containing Allergy Verified 11/14/16 12:54 Produc Penicillins Allergy Verified 11/14/16 12:54 Sulfa (Sulfonamide Allergy Verified 11/14/16 12:54 Antibiotics) vancomycin Allergy Verified 11/14/16 12:54 seafood Allergy Uncoded 11/14/16 12:54 - Medications Medications: Current Medications Artificial Tears (Artificial Tears) 0.1 ml OU Q6H PRN PRN Reason: Dry eyes [facility] Cyclobenzaprine HCl (Flexeril) 5 mg PO TID [facility] Last Admin: 11/16/16 13:58 Dose: 5 mg Gabapentin (Neurontin) 100 mg PO TID [facility] Last Admin: 11/16/16 13:58 Dose: 100 mg Heparin Sodium (Porcine) (Heparin) 5,000 units SC Q12 [facility] Last Admin: 11/16/16 10:17 Dose: 5,000 units Home Med (Home Med) 1 unit OD TID [facility] Last Admin: 11/16/16 14:04 Dose: 1 unit Home Med (Home Med) 1 unit OD TID [facility] Last Admin: 11/16/16 14:04 Dose: 1 unit Home Med (Home Med) 1 unit OD DAILY [facility] Last Admin: 11/16/16 10:18 Dose: 1 unit Home Med (Home Med) 1 unit OU HS [facility] Last Admin: 11/15/16 21:25 Dose: 1 unit Home Med (Home Med) 1 unit OU BID [facility] Last Admin: 11/16/16 10:19 Dose: 1 unit Hydralazine HCl (Apresoline) 25 mg PO Q6H [facility] Last Admin: 11/16/16 14:00 Dose: 25 mg Sodium Chloride (Sodium Chloride 0.9%) 1,000 mls @ 40 mls/hr IV .Q24H [facility] Last Admin: 11/16/16 06:06 Dose: 40 mls/hr Cefepime HCl (Maxipime Iv 1 Gm Premix) 1 gm in 50 mls @ 100 mls/hr IVPB Q24H [facility] Last Admin: 11/15/16 20:16 Dose: 100 mls/hr Insulin Human Regular (Novolin R) 0 unit SC ACHS [facility] PRN Reason: Protocol Last Admin: 11/16/16 12:31 Dose: 2 unit Metoprolol Tartrate (Lopressor) 100 mg PO BID [facility] Last Admin: 11/16/16 10:17 Dose: 100 mg Nebivolol (Bystolic) 10 mg PO DAILY [facility] Last Admin: 11/16/16 10:16 Dose: 10 mg Nifedipine (Procardia Xl) 60 mg PO DAILY [facility] Last Admin: 11/16/16 10:17 Dose: 60 mg Oxycodone HCl (Oxycontin Extended Release Tab) 20 mg PO Q12 [facility] Last Admin: 11/16/16 13:58 Dose: 20 mg Oxycodone/Acetaminophen (Percocet 5/325 Mg Tab) 2 tab PO Q6H PRN PRN Reason: Pain, moderate (4-7) Stop: 11/18/16 20:09 Last Admin: 11/16/16 08:13 Dose: 2 tab Pantoprazole Sodium (Protonix Ec Tab) 40 mg PO DAILY [facility] Last Admin: 11/16/16 10:17 Dose: 40 mg Prednisone (Prednisone Tab) 5 mg PO DAILY [facility] Last Admin: 11/16/16 10:17 Dose: 5 mg Physical Exam - Head Exam Head Exam: ATRAUMATIC - Eye Exam Eye Exam: EOMI, PERRL - ENT Exam ENT Exam: Mucous Membranes Moist - Neck Exam Neck exam: Negative for: Lymphadenopathy, Thyromegaly - Respiratory Exam Respiratory Exam: Clear to Auscultation Bilateral. absent: Rales - Cardiovascular Exam Cardiovascular Exam: REGULAR RHYTHM, Systolic Murmur - GI/Abdominal Exam GI & Abdominal Exam: Normal Bowel Sounds. absent: Organomegaly - Rectal Exam Rectal Exam: Deferred - Extremities Exam Extremities exam: Positive for: normal capillary refill, pedal edema, tenderness. Negative for: calf tenderness - Neurological Exam Neurological exam: Alert, Oriented x3 - Psychiatric Exam Psychiatric exam: Depressed - Skin Skin Exam: Dry Results - Vital Signs Recent Vital Signs: Last Vital Signs Temp 98.8 F 11/16/16 08:18 Pulse 74 11/16/16 10:20 Resp 20 11/16/16 08:18 BP 180/103 H 11/16/16 10:20 Pulse Ox 95 11/16/16 08:18 - Labs Result Diagrams: 11/15/16 08:41 11/16/16 07:11 Labs: Laboratory Results - last 24 hr 11/15/16 11/15/16 11/16/16 16:54 21:25 06:11 Sodium Potassium Chloride Carbon Dioxide Anion Gap BUN Creatinine Est GFR ( Amer) Est GFR (Non-Af Amer) POC Glucose (mg/dL) 200 H 181 H 151 H Random Glucose Calcium Phosphorus 25-OH Vitamin D Total 11/16/16 11/16/16 11/16/16 07:11 07:11 11:20 Sodium 141 Potassium 4.8 Chloride 108 H Carbon Dioxide 21 L Anion Gap 17 BUN 45 H Creatinine 4.1 H Est GFR ( Amer) 13 Est GFR (Non-Af Amer) 11 POC Glucose (mg/dL) 229 H Random Glucose 121 H Calcium 8.8 Phosphorus 5.2 H 25-OH Vitamin D Total < 12.8 L Assessment & Plan - Assessment and Plan (Free Text) Assessment: pulmonary hypertension with no intracardiac shunt by echo, obesity, probable mild chronic obstructive pulmonary disease diabetic foot with prior admission with sepsis in addition to diabetes Diastolic heart failure of the left ventricle acute over chronic with normal ejection fraction Chronic diabetes type 2
[2016-11-16] MEDS: Cefepime IV 1 gm in Dextrose 1 GM/50 ML BAG IVPB SCH (20:00)
[2016-11-16] MEDS: TRAVATAN OU SCH (21:45)
[2016-11-17] MEDS: Oxycodone/Acetaminophen 5/325 mg Tab PO PRN ×2 (04:57→17:31)
[2016-11-17] MEDS: (Novolin R) Insulin Human Regular 100 units/ml vial SC SCH ×4 (07:15→21:54)
[2016-11-17] MEDS ORDERED: POLYETHYLENE GLYCOL 3350 17 GM/Dose PACKET PO STA (07:38)
[2016-11-17] MEDS ORDERED: Bisacodyl 5mg EC Tab PO ONE (07:39)
--- NOTE | 2016-11-17 09:16 | VASCLAB ---
PROCEDURE: Lower Extremity Venous Duplex Exam. HISTORY: L>R edema, ? DVT, h/o R foot fx PRIORS: None. TECHNIQUE: Bilateral common femoral, femoral, popliteal and posterior tibial, peroneal and great saphenous veins were evaluated. Flow was assessed with color Doppler, compressibility, assessment of phasic flow and augmentation response. Report prepared by Den Wong, YE, RVT FINDINGS: RIGHT: 1. Common Femoral Vein: 1.1. Compressibility - Fully compressible: Thrombus - None : Flow - Phasic: Augmentation -Normal: Reflux - None. 2. Femoral Vein: 2.1. Compressibility - Fully compressible: Thrombus - None : Flow - Phasic: Augmentation -Normal: Reflux - None. 3. Popliteal Vein: 3.1. Compressibility - Fully compressible: Thrombus - None : Flow - Phasic: Augmentation -Normal: Reflux - None. 4. Posterior Tibial Vein: 4.1. Compressibility - Fully compressible: Thrombus - None: Flow - Phasic: Augmentation -Normal: Reflux - None. 5. Peroneal Vein: 5.1. Compressibility - Fully compressible: Thrombus - None: Flow - Phasic: Augmentation -Normal: Reflux - None. 6. Great Saphenous Vein: 6.1. Compressibility - Fully compressible: Thrombus - None: Flow - Phasic: Augmentation - Normal: Reflux - None. LEFT: 1. Common Femoral Vein: 1.1. Compressibility - Fully compressible: Thrombus - None: Flow - Phasic: Augmentation -Normal: Reflux - None. 2. Femoral Vein: 2.1. Compressibility - Fully compressible: Thrombus - None: Flow - Phasic: Augmentation -Normal: Reflux - None. 3. Popliteal Vein: 3.1. Compressibility - Fully compressible: Thrombus - None : Flow - Phasic: Augmentation -Normal: Reflux - None. 4. Posterior Tibial Vein: 4.1. Compressibility - Fully compressible: Thrombus - None: Flow - Phasic: Augmentation -Normal: Reflux - None. 5. Peroneal Vein: 5.1. Compressibility - Fully compressible: Thrombus - None: Flow - Phasic: Augmentation -Normal: Reflux - None. 6. Great Saphenous Vein: 6.1. Compressibility - Fully compressible: Thrombus - None: Flow - Phasic: Augmentation - Normal: Reflux - None. OTHER FINDINGS: Right: None significant. Left: None significant. IMPRESSION: Right: No evidence of deep or superficial vein thrombosis of the right lower extremity. Normal valve function noted of the right side. Left: No evidence of deep or superficial vein thrombosis of the left lower extremity. Normal valve function noted of the left side.
--- NOTE | 2016-11-17 09:32 | CP.PCM.PN ---
Subjective - Date & Time of Evaluation Date of Evaluation: 11/17/16 Time of Evaluation: 07:40 - Subjective Subjective: PGY1 Progress Note for Dr. Renteria Patient seen and examined. Patient complaining of pain in right leg as well as bilateral leg swelling. Patient also complaining of constipation and states she has not had bowel movement in several days. Patient states she has strong burning sensation in both feet. Objective - Vital Signs/Intake and Output Vital Signs (last 24 hours): Temp Pulse Resp BP Pulse Ox 97.9 F 66 18 170/94 H 97 11/17/16 07:10 11/17/16 07:10 11/17/16 07:10 11/17/16 07:10 11/17/16 07:10 Intake and Output: 11/17/16 11/17/16 06:59 18:59 Intake Total 1350 Balance 1350 - Medications Medications: Current Medications Artificial Tears (Artificial Tears) 0.1 ml OU Q6H PRN PRN Reason: Dry eyes Calcium Acetate (Phoslo) 667 mg PO BIDCC [facility] Last Admin: 11/17/16 08:02 Dose: 667 mg Cyclobenzaprine HCl (Flexeril) 5 mg PO TID [facility] Last Admin: 11/16/16 18:21 Dose: 5 mg Gabapentin (Neurontin) 100 mg PO TID [facility] Last Admin: 11/16/16 18:21 Dose: 100 mg Heparin Sodium (Porcine) (Heparin) 5,000 units SC Q12 [facility] Last Admin: 11/16/16 21:45 Dose: 5,000 units Home Med (Home Med) 1 unit OD TID [facility] Last Admin: 11/16/16 18:24 Dose: 1 unit Home Med (Home Med) 1 unit OD TID [facility] Last Admin: 11/16/16 18:23 Dose: 1 unit Home Med (Home Med) 1 unit OD DAILY [facility] Last Admin: 11/16/16 10:18 Dose: 1 unit Home Med (Home Med) 1 unit OU HS [facility] Last Admin: 11/16/16 21:45 Dose: 1 unit Home Med (Home Med) 1 unit OU BID [facility] Last Admin: 11/16/16 18:24 Dose: 1 unit Hydralazine HCl (Apresoline) 25 mg PO Q6H [facility] Last Admin: 11/17/16 06:32 Dose: 25 mg Sodium Chloride (Sodium Chloride 0.9%) 1,000 mls @ 40 mls/hr IV .Q24H [facility] Last Admin: 11/16/16 18:45 Dose: Not Given Cefepime HCl (Maxipime Iv 1 Gm Premix) 1 gm in 50 mls @ 100 mls/hr IVPB Q24H [facility] Last Admin: 11/16/16 20:00 Dose: 100 mls/hr Insulin Human Regular (Novolin R) 0 unit SC ACHS [facility] PRN Reason: Protocol Last Admin: 11/17/16 07:15 Dose: Not Given Metoprolol Tartrate (Lopressor) 100 mg PO BID [facility] Last Admin: 11/16/16 18:26 Dose: 100 mg Nebivolol (Bystolic) 10 mg PO DAILY [facility] Last Admin: 11/16/16 10:16 Dose: 10 mg Nifedipine (Procardia Xl) 60 mg PO DAILY [facility] Last Admin: 11/16/16 10:17 Dose: 60 mg Oxycodone HCl (Oxycontin Extended Release Tab) 20 mg PO Q12 [facility] Last Admin: 11/16/16 21:50 Dose: 20 mg Oxycodone/Acetaminophen (Percocet 5/325 Mg Tab) 2 tab PO Q6H PRN PRN Reason: Pain, moderate (4-7) Stop: 11/18/16 20:09 Last Admin: 11/17/16 04:57 Dose: 2 tab Pantoprazole Sodium (Protonix Ec Tab) 40 mg PO DAILY [facility] Last Admin: 11/16/16 10:17 Dose: 40 mg Prednisone (Prednisone Tab) 5 mg PO DAILY [facility] Last Admin: 11/16/16 10:17 Dose: 5 mg - Labs Labs: 11/15/16 08:41 11/16/16 07:11 PT 13.6 SECONDS (9.7-12.2) H 11/14/16 14:33 INR 1.2 11/14/16 14:33 APTT 32 SECONDS (21-34) 11/14/16 14:33 - Constitutional Appears: Non-toxic, No Acute Distress - Head Exam Head Exam: ATRAUMATIC, NORMOCEPHALIC - Eye Exam Eye Exam: EOMI - ENT Exam ENT Exam: Mucous Membranes Moist - Respiratory Exam Respiratory Exam: Clear to Ausculation Bilateral, NORMAL BREATHING PATTERN - Cardiovascular Exam Cardiovascular Exam: +S1, +S2 - GI/Abdominal Exam GI & Abdominal Exam: Soft, Normal Bowel Sounds. absent: Tenderness - Extremities Exam Extremities Exam: Pedal Edema (pitting bilateral) Additional comments: no erythema bilaterally, decreased sensation b/l feet - Neurological Exam Neurological Exam: Alert, Awake - Psychiatric Exam Psychiatric exam: Normal Affect - Skin Skin Exam: Dry, Warm Assessment and Plan - Assessment and Plan (Free Text) Assessment: Lower Extremity swelling and erythema suspect cellulitis Lower extremity venous doppler negative for DVT b/l foot xray: soft tissue swelling without acute articular or osseous abnormality procalcitonin - low blood cultures - negative after 48 hours Cont cefepime patient could transition to keflex for an additional 10 days if patient to be discharged ID consult, Dr. Hubbard- help appreciated follow up any recommendations Echo- normal LVEF, moderate pulmonary HTN @ 47mmHg, diastolic HF JESSICA on CKD Cr decreased from 3.8 stop IVF Nephrology consult- Dr. Morillo- help appreciated Acute kidney injury on chronic kidney disease Multiple etiologies possible - suspect volume depletion along with sepsis induced renal failure, can not exclude obstruction and nephrotoxicity Progression of ckd possible as well Agree with IVF and empiric abx No nephrotoxins Renal ultrasound- small amount of perinephric fluid adjacent to lower pole left kidney, increased echogenicity bilateral renal cortices suggestive for medical renal disease Hypoglycemia AM cortisol levels wnl accuchecks q4h HTN bystolic 10mg daily lopressor 100mg BID nifedipine 60mg daily Add hydralazine 25mg Q6h monitor on tele Diabetes accuchecks q4h ISS mod consistent carb diet Diabetic Neuropathy gabapentin 100mg TID adding amitriptyline 25mg daily Muscle Spasm Flexeril 5mg TID Rheumatoid arthritis continue prednisone daily Hyperphosphatemia Started Phoslo Monitor Depression Pt emotionally labile Psych consult - help appreciated Prophylactic measure heparin 5000 q12h protonix 40mg daily oxycodone 20mg Q12h percocet 2 tab q6h prn
[2016-11-17] MEDS: oxyCODONE 20 mg ER Tab (oxyCONTIN) PO SCH ×2 (10:47→21:51)
[2016-11-17] MEDS: NIFEdipine 60 mg ER Tab PO SCH (10:47)
[2016-11-17] MEDS: Pantoprazole 40 mg EC Tab PO SCH (10:47)
[2016-11-17] MEDS: PROLENSA OD SCH (10:49)
[2016-11-17] MEDS: BESIVANCE OD SCH ×3 (10:49→17:38)
[2016-11-17] MEDS: SIMBRINZA OU SCH ×2 (10:49→17:38)
--- NOTE | 2016-11-17 11:18 | CP.PCM.PN ---
Subjective - Date & Time of Evaluation Date of Evaluation: 11/17/16 Time of Evaluation: 11:18 - Subjective Subjective: 60 y/o female patient seen at bedside this morning for f/u of lower extremity edema and erythema. Pt seen resting at bedside at time of visit. Denies any acute events overnight. Denies f/n/v/c/sob/cp. Does complain of pain to the right foot arch today. Says percocet is not helping the pain. Also complains of persistent right calf pain today. Denies any pain or discomfort to the left leg today. Denies any other problems today. Objective - Vital Signs/Intake and Output Vital Signs (last 24 hours): Temp Pulse Resp BP Pulse Ox 97.9 F 66 18 170/94 H 97 11/17/16 07:10 11/17/16 07:10 11/17/16 07:10 11/17/16 07:10 11/17/16 07:10 Intake and Output: 11/17/16 11/17/16 06:59 18:59 Intake Total 1350 Balance 1350 - Medications Medications: Current Medications Artificial Tears (Artificial Tears) 0.1 ml OU Q6H PRN PRN Reason: Dry eyes Calcium Acetate (Phoslo) 667 mg PO B[facility]CC [facility] Last Admin: 11/17/16 08:02 Dose: 667 mg Cyclobenzaprine HCl (Flexeril) 5 mg PO TID [facility] Last Admin: 11/17/16 10:45 Dose: 5 mg Gabapentin (Neurontin) 100 mg PO TID [facility] Last Admin: 11/17/16 10:47 Dose: 100 mg Heparin Sodium (Porcine) (Heparin) 5,000 units SC Q12 [facility] Last Admin: 11/17/16 10:48 Dose: 5,000 units Home Med (Home Med) 1 unit OD TID [facility] Last Admin: 11/17/16 10:49 Dose: 1 unit Home Med (Home Med) 1 unit OD TID [facility] Last Admin: 11/17/16 10:49 Dose: 1 unit Home Med (Home Med) 1 unit OD DAILY [facility] Last Admin: 11/17/16 10:49 Dose: 1 unit Home Med (Home Med) 1 unit OU HS [facility] Last Admin: 11/16/16 21:45 Dose: 1 unit Home Med (Home Med) 1 unit OU BID [facility] Last Admin: 11/17/16 10:49 Dose: 1 unit Hydralazine HCl (Apresoline) 25 mg PO Q6H [facility] Last Admin: 11/17/16 06:32 Dose: 25 mg Cefepime HCl (Maxipime Iv 1 Gm Premix) 1 gm in 50 mls @ 100 mls/hr IVPB Q24H [facility] Last Admin: 11/16/16 20:00 Dose: 100 mls/hr Insulin Human Regular (Novolin R) 0 unit SC ACHS [facility] PRN Reason: Protocol Last Admin: 11/17/16 07:15 Dose: Not Given Metoprolol Tartrate (Lopressor) 100 mg PO BID [facility] Last Admin: 11/17/16 10:47 Dose: 100 mg Nebivolol (Bystolic) 10 mg PO DAILY [facility] Last Admin: 11/17/16 10:45 Dose: 10 mg Nifedipine (Procardia Xl) 60 mg PO DAILY [facility] Last Admin: 11/17/16 10:47 Dose: 60 mg Oxycodone HCl (Oxycontin Extended Release Tab) 20 mg PO Q12 [facility] Last Admin: 11/17/16 10:47 Dose: 20 mg Oxycodone/Acetaminophen (Percocet 5/325 Mg Tab) 2 tab PO Q6H PRN PRN Reason: Pain, moderate (4-7) Stop: 11/18/16 20:09 Last Admin: 11/17/16 04:57 Dose: 2 tab Pantoprazole Sodium (Protonix Ec Tab) 40 mg PO DAILY [facility] Last Admin: 11/17/16 10:47 Dose: 40 mg Prednisone (Prednisone Tab) 5 mg PO DAILY [facility] Last Admin: 11/17/16 10:47 Dose: 5 mg - Labs Labs: 11/15/16 08:41 11/16/16 07:11 PT 13.6 SECONDS (9.7-12.2) H 11/14/16 14:33 INR 1.2 11/14/16 14:33 APTT 32 SECONDS (21-34) 11/14/16 14:33 - Constitutional Appears: Non-toxic, No Acute Distress - Extremities Exam Additional comments: BL low ext. exam: VASC: Dp/PT pulses palpable, cap refill < 3 sec to digits x 10, mild pedal edema noted to RLE, skin temp is warm to warm BL DERM: no open wounds noted, moderate erythema noted to distal LLE (margins marked with marking pen and appears to be resolving) Ortho: (+) tenderness to palp of right posterior leg, tenderness to palp of medial arch right foot, (-) tenderness to palp of posterior left leg NEURO: diminished protective and light touch sensation BL - Neurological Exam Neurological Exam: Alert, Awake - Psychiatric Exam Psychiatric exam: Normal Affect, Normal Mood Assessment and Plan - Assessment and Plan (Free Text) Assessment: 60 y/o female patient with bilateral lower extremities swelling and resolving erythema left leg Plan: Patient seen and evaluated at bedside Plan discussed with attending Dr. Wright in detail Low ext venous Duplex: Negative DVT Chart, labs and vitals reviewed: afebile, no leukocytosis JESSICA on CKD- f/u nephrology recommendations IV abx per ID (cefepime) Discussed with primary, oxycontin SR to be added to pain regimen R foot x-ray: Right calcaneus avulsion fracture was noted. Pt is to ambulate with CAM boot which is at bedside Stable per podiatry, will continue to follow while she remains in house.
[2016-11-17 11:23] LABS: BASO % 0.4 % (0.0-2.0); EOS # 0.3 K/uL (0.0-0.7); EOS % 3.5 % (0.0-4.0); HEMATOCRIT 30.5 % (34.0-47.0); LYMPH # 3.3 K/uL (1.0-4.3); LYMPH % 41.7 % (20.0-40.0); MEAN CELL VOLUME 87.1 fL (81.0-99.0); MEAN CORPUSCULAR HEMOGLOBIN 28.2 pg (27.0-31.0); MEAN CORPUSCULAR HGB CONC 32.4 g/dL (33.0-37.0); MEAN PLATELET VOLUME 8.1 fL (7.2-11.7); MONO # 0.5 K/uL (0.0-0.8); MONO % 6.6 % (0.0-10.0); RED CELL DISTRIBUTION WIDTH 13.9 % (11.5-14.5)
[2016-11-17 11:46] LABS: POTASSIUM 4.5 mmol/L (3.6-5.2)
[2016-11-17 11:48] LABS: BILIRUBIN,TOTAL 0.5 mg/dL (0.2-1.3)
[2016-11-17 11:49] LABS: ALB/GLOB RATIO 0.9 (1.0-2.1); CALCIUM 8.7 mg/dl (8.6-10.4); TOTAL PROTEIN 7.6 g/dL (6.3-8.3)
--- NOTE | 2016-11-17 12:32 | PCM.PSYCH ---
Initial Psychiatric Evaluation - Initial Psychiatric Evaluation Type of Admission: Voluntary Legal Status: Capacity Chief Complaint (in patient's own words): "I feel sad." History of Present Illness and Precipitating Events: Patient was seen and evaluated, chart reviewed and discussed with the nurse. The patient is a 60yo female who is here with depression. The patient is , has a 42yo daughter, and receives disability social security checks. The patient states that she has been going through a rough patch for a few weeks. She states she lost her mother, 74yo, in a MVA 5 years ago and lost her brother suddenly 8 weeks ago. She states that her family found him in his home and that he had of a heart attack at the age of 61. She says that she feels like she has no one left. She feels like she failed him and feels guilty because it was her job to take care of him. She complains of poor sleep and appetite since her mothers and claims to have lost 100lbs since then. She also states she has less energy and has lost interest in life. She denies S/I but states that about a week before her brother , she heard her mothers voice. She denies any substance abuse. She says that she is allergic to Tramadol, Iodine, Sulfur, and shellfish. The patient appears to be depressed and very upset. She was very tearful throughout the interview and appears to be experiencing feelings of hopelessness. But denies any suicidal ideation. Past medical history: Diabetes Mellitus Type 2, HTN, Dyslipidemia, Renal insufficiency, Rheumatoid arthritis Past psych history: Anxiety and Depression Family psych history: denies Current Medications: Active Medications Generic Name Dose Route Start Last Admin Trade Name Freq PRN Reason Stop Dose Admin Amitriptyline HCl 25 mg 11/17/16 13:00 Elavil PO DAILY [facility] Artificial Tears 0.1 ml 11/15/16 04:58 Artificial Tears OU Q6H PRN Dry eyes Calcium Acetate 667 mg 11/16/16 17:00 11/17/16 08:02 Phoslo PO 667 mg BIDCC [facility] Administration Cyclobenzaprine HCl 5 mg 11/15/16 10:00 11/17/16 10:45 Flexeril PO 5 mg TID [facility] Administration Furosemide 60 mg 11/17/16 11:30 Lasix PO DAILY [facility] Gabapentin 100 mg 11/15/16 10:00 11/17/16 10:47 Neurontin PO 100 mg TID [facility] Administration Heparin Sodium (Porcine) 5,000 units 11/14/16 22:00 11/17/16 10:48 Heparin SC 5,000 units Q12 [facility] Administration Home Med 1 unit 11/16/16 10:00 11/17/16 10:49 Home Med OD 1 unit TID [facility] Administration Home Med 1 unit 11/16/16 10:00 11/17/16 10:49 Home Med OD 1 unit TID [facility] Administration Home Med 1 unit 11/16/16 10:00 11/17/16 10:49 Home Med OD 1 unit DAILY [facility] Administration Home Med 1 unit 11/15/16 22:00 11/16/16 21:45 Home Med OU 1 unit HS [facility] Administration Home Med 1 unit 11/16/16 10:00 11/17/16 10:49 Home Med OU 1 unit BID [facility] Administration Hydralazine HCl 25 mg 11/16/16 13:15 11/17/16 06:32 Apresoline PO 25 mg Q6H [facility] Administration Cefepime HCl 1 gm in 50 mls @ 100 mls/hr 11/14/16 20:00 11/16/16 20:00 Maxipime Iv 1 Gm Premix IVPB 100 mls/hr Q24H [facility] Administration Insulin Human Regular 0 unit 11/14/16 22:00 11/17/16 07:15 Novolin R SC Not Given ACHS [facility] Protocol Metoprolol Tartrate 100 mg 11/14/16 19:30 11/17/16 10:47 Lopressor PO 100 mg BID [facility] Administration Nebivolol 10 mg 11/15/16 10:00 11/17/16 10:45 Bystolic PO 10 mg DAILY [facility] Administration Nifedipine 60 mg 11/15/16 10:00 11/17/16 10:47 Procardia Xl PO 60 mg DAILY [facility] Administration Oxycodone HCl 20 mg 11/16/16 13:15 11/17/16 10:47 Oxycontin Extended Release Tab PO 20 mg Q12 [facility] Administration Oxycodone/Acetaminophen 2 tab 11/15/16 20:08 11/17/16 04:57 Percocet 5/325 Mg Tab PO 11/18/16 20:09 2 tab Q6H PRN Administration Pain, moderate (4-7) Pantoprazole Sodium 40 mg 11/15/16 10:00 11/17/16 10:47 Protonix Ec Tab PO 40 mg DAILY [facility] Administration Prednisone 5 mg 11/15/16 10:00 11/17/16 10:47 Prednisone Tab PO 5 mg DAILY [facility] Administration Past Psychiatric History - Past Psychiatric History Previous Treatment History: None Pertinent Medical Hx (Current Medical&Sleep Prob, Allergies): Allergies Allergy/AdvReac Type Severity Reaction Status Date / Time codeine Allergy Verified 11/14/16 12:54 Iodine and Iodide Containing Allergy Verified 11/14/16 12:54 Produc Penicillins Allergy Verified 11/14/16 12:54 Sulfa (Sulfonamide Allergy Verified 11/14/16 12:54 Antibiotics) vancomycin Allergy Verified 11/14/16 12:54 seafood Allergy Uncoded 11/14/16 12:54 Acetaminophen/Oxycodone Hydr [Percocet 10/325 mg Tab] 1 tab PO Q8H 11/14/16 Cyclobenzaprine [Flexeril] 10 mg PO TID 11/14/16 Esomeprazole Magnesium [Nexium] 40 mg PO DAILY 11/14/16 Gabapentin 300 mg PO TID 11/14/16 Metoprolol Tartrate [Lopressor] 100 mg PO BID 11/14/16 Nebivolol [Bystolic] 10 mg PO DAILY 11/14/16 Nifedipine [Nifediac cc] 60 mg PO DAILY 11/14/16 predniSONE [predniSONE Tab] 5 mg PO DAILY 11/14/16 Review of Systems - Review of Systems All systems: reviewed and no additional remarkable complaints except - Psychiatric Psychiatric: Anxiety, Depression, Irritability. absent: Auditory Hallucinations , Suicidal Ideation Mental Status Examination - Personal Presentation Personal Presentation: Looks stated age - Affect Affect: Constricted, Depressed - Motor Activity Motor Activity: Calm - Reliability in Providing Information Reliability in Providing Information: Good - Speech Speech: Organized - Mood Mood: Depressed, Anxious - Formal Thought Process Formal Thought Process: No Impairment - Obsessions/Compulsions Obsessions: No Compulsions: No - Cognitive Functions Orientation: Person, Place, Situation, Time Sensorium: Alert Attention/Concentration: Attentive Abstract Thinking: Hendricks Estimate of Intelligence: Below average Judgement: Imparied, as evidence by: Poor judgement, Imparied, as evidence by: Lack of insight into illness - Risk Risk: Diminished functioning - Limitations Limitations: Living alone DSM 5 DX - DSM 5 DSM 5 Diagnosis: Major depressive disorder recurrent moderate - Recommended/Plan of Treatment Treatment Recommendations and Plan of Treatment: Major depressive disorder recurrent moderate CBT Psychoeducation Supportive therapy, milieu therapy and group therapy discontinue Elavil 25 mg daily Zoloft 50 mg daily Trazodone 50 mg by mouth daily at bedtime Gabapentin 100 mg by mouth 3 times a day - Smoking Cessation Smoking Cessation Initiated: No
--- NOTE | 2016-11-17 13:16 | CP.PCM.PN ---
Subjective - Date & Time of Evaluation Date of Evaluation: 11/17/16 Time of Evaluation: 13:00 - Subjective Subjective: Still with edema and tingling in both feet. Seen by psychiatry will follow Objective - Vital Signs/Intake and Output Vital Signs (last 24 hours): Temp Pulse Resp BP Pulse Ox 97.9 F 66 18 170/94 H 97 11/17/16 07:10 11/17/16 07:10 11/17/16 07:10 11/17/16 07:10 11/17/16 07:10 Intake and Output: 11/17/16 11/17/16 06:59 18:59 Intake Total 1350 Balance 1350 - Medications Medications: Current Medications Amitriptyline HCl (Elavil) 25 mg PO DAILY [facility] Artificial Tears (Artificial Tears) 0.1 ml OU Q6H PRN PRN Reason: Dry eyes Bisacodyl (Dulcolax) 5 mg PO ONCE ONE Stop: 11/18/16 08:01 Calcium Acetate (Phoslo) 667 mg PO BIDCC [facility] Last Admin: 11/17/16 08:02 Dose: 667 mg Cyclobenzaprine HCl (Flexeril) 5 mg PO TID [facility] Last Admin: 11/17/16 10:45 Dose: 5 mg Furosemide (Lasix) 60 mg PO DAILY [facility] Gabapentin (Neurontin) 100 mg PO TID [facility] Last Admin: 11/17/16 10:47 Dose: 100 mg Heparin Sodium (Porcine) (Heparin) 5,000 units SC Q12 [facility] Last Admin: 11/17/16 10:48 Dose: 5,000 units Home Med (Home Med) 1 unit OD TID [facility] Last Admin: 11/17/16 10:49 Dose: 1 unit Home Med (Home Med) 1 unit OD TID [facility] Last Admin: 11/17/16 10:49 Dose: 1 unit Home Med (Home Med) 1 unit OD DAILY [facility] Last Admin: 11/17/16 10:49 Dose: 1 unit Home Med (Home Med) 1 unit OU HS [facility] Last Admin: 11/16/16 21:45 Dose: 1 unit Home Med (Home Med) 1 unit OU BID [facility] Last Admin: 11/17/16 10:49 Dose: 1 unit Hydralazine HCl (Apresoline) 25 mg PO Q6H [facility] Last Admin: 11/17/16 06:32 Dose: 25 mg Cefepime HCl (Maxipime Iv 1 Gm Premix) 1 gm in 50 mls @ 100 mls/hr IVPB Q24H [facility] Last Admin: 11/16/16 20:00 Dose: 100 mls/hr Insulin Human Regular (Novolin R) 0 unit SC ACHS [facility] PRN Reason: Protocol Last Admin: 11/17/16 07:15 Dose: Not Given Metoprolol Tartrate (Lopressor) 100 mg PO BID [facility] Last Admin: 11/17/16 10:47 Dose: 100 mg Nebivolol (Bystolic) 10 mg PO DAILY [facility] Last Admin: 11/17/16 10:45 Dose: 10 mg Nifedipine (Procardia Xl) 60 mg PO DAILY [facility] Last Admin: 11/17/16 10:47 Dose: 60 mg Oxycodone HCl (Oxycontin Extended Release Tab) 20 mg PO Q12 [facility] Last Admin: 11/17/16 10:47 Dose: 20 mg Oxycodone/Acetaminophen (Percocet 5/325 Mg Tab) 2 tab PO Q6H PRN PRN Reason: Pain, moderate (4-7) Stop: 11/18/16 20:09 Last Admin: 11/17/16 04:57 Dose: 2 tab Pantoprazole Sodium (Protonix Ec Tab) 40 mg PO DAILY [facility] Last Admin: 11/17/16 10:47 Dose: 40 mg Prednisone (Prednisone Tab) 5 mg PO DAILY [facility] Last Admin: 11/17/16 10:47 Dose: 5 mg Sertraline HCl (Zoloft) 50 mg PO DAILY [facility] Trazodone HCl (Desyrel) 50 mg PO HS [facility] - Labs Labs: 11/17/16 11:12 11/17/16 11:12 PT 13.6 SECONDS (9.7-12.2) H 11/14/16 14:33 INR 1.2 11/14/16 14:33 APTT 32 SECONDS (21-34) 11/14/16 14:33 - Constitutional Appears: Non-toxic - Head Exam Head Exam: ATRAUMATIC - Eye Exam Eye Exam: EOMI - ENT Exam ENT Exam: Mucous Membranes Moist - Neck Exam Neck Exam: absent: Lymphadenopathy, Thyromegaly - Respiratory Exam Respiratory Exam: Clear to Ausculation Bilateral. absent: Rales - Cardiovascular Exam Cardiovascular Exam: REGULAR RHYTHM, Murmur - GI/Abdominal Exam GI & Abdominal Exam: Normal Bowel Sounds. absent: Organomegaly - Rectal Exam Rectal Exam: Deferred - Extremities Exam Extremities Exam: Normal Capillary Refill. absent: Calf Tenderness - Neurological Exam Neurological Exam: Alert, Oriented x3 - Psychiatric Exam Psychiatric exam: Normal Mood - Skin Skin Exam: Dry Assessment and Plan (1) Shortness of breath Assessment & Plan: observe Echo with PAH, no shunt, Status: Acute (2) Acute on chronic renal failure Status: Chronic (3) Type 2 diabetes mellitus with diabetic chronic kidney disease Status: Chronic (4) Pulmonary hypertension Status: Chronic (5) CHF (congestive heart failure), NYHA class III Assessment & Plan: acute over chronic diastolic LV Status: Acute
--- NOTE | 2016-11-17 13:26 | CP.PCM.PN ---
Subjective - Date & Time of Evaluation Date of Evaluation: 11/17/16 Time of Evaluation: 13:24 - Subjective Subjective: right LE redness beter Creat better at 3.8 BP elevated still Has proteinuria due to DM Still with vaque c/o weakness Objective - Vital Signs/Intake and Output Vital Signs (last 24 hours): Temp Pulse Resp BP Pulse Ox 97.9 F 66 18 170/94 H 97 11/17/16 07:10 11/17/16 07:10 11/17/16 07:10 11/17/16 07:10 11/17/16 07:10 Intake and Output: 11/17/16 11/17/16 06:59 18:59 Intake Total 1350 Balance 1350 - Medications Medications: Current Medications Amitriptyline HCl (Elavil) 25 mg PO DAILY [facility] Artificial Tears (Artificial Tears) 0.1 ml OU Q6H PRN PRN Reason: Dry eyes Bisacodyl (Dulcolax) 5 mg PO ONCE ONE Stop: 11/18/16 08:01 Calcium Acetate (Phoslo) 667 mg PO BIDCC [facility] Last Admin: 11/17/16 08:02 Dose: 667 mg Cyclobenzaprine HCl (Flexeril) 5 mg PO TID [facility] Last Admin: 11/17/16 10:45 Dose: 5 mg Furosemide (Lasix) 60 mg PO DAILY [facility] Gabapentin (Neurontin) 100 mg PO TID [facility] Last Admin: 11/17/16 10:47 Dose: 100 mg Heparin Sodium (Porcine) (Heparin) 5,000 units SC Q12 [facility] Last Admin: 11/17/16 10:48 Dose: 5,000 units Home Med (Home Med) 1 unit OD TID [facility] Last Admin: 11/17/16 10:49 Dose: 1 unit Home Med (Home Med) 1 unit OD TID [facility] Last Admin: 11/17/16 10:49 Dose: 1 unit Home Med (Home Med) 1 unit OD DAILY [facility] Last Admin: 11/17/16 10:49 Dose: 1 unit Home Med (Home Med) 1 unit OU HS [facility] Last Admin: 11/16/16 21:45 Dose: 1 unit Home Med (Home Med) 1 unit OU BID [facility] Last Admin: 11/17/16 10:49 Dose: 1 unit Hydralazine HCl (Apresoline) 25 mg PO Q6H [facility] Last Admin: 11/17/16 06:32 Dose: 25 mg Cefepime HCl (Maxipime Iv 1 Gm Premix) 1 gm in 50 mls @ 100 mls/hr IVPB Q24H [facility] Last Admin: 11/16/16 20:00 Dose: 100 mls/hr Insulin Human Regular (Novolin R) 0 unit SC ACHS [facility] PRN Reason: Protocol Last Admin: 11/17/16 07:15 Dose: Not Given Metoprolol Tartrate (Lopressor) 100 mg PO BID [facility] Last Admin: 11/17/16 10:47 Dose: 100 mg Nebivolol (Bystolic) 10 mg PO DAILY [facility] Last Admin: 11/17/16 10:45 Dose: 10 mg Nifedipine (Procardia Xl) 60 mg PO DAILY [facility] Last Admin: 11/17/16 10:47 Dose: 60 mg Oxycodone HCl (Oxycontin Extended Release Tab) 20 mg PO Q12 [facility] Last Admin: 11/17/16 10:47 Dose: 20 mg Oxycodone/Acetaminophen (Percocet 5/325 Mg Tab) 2 tab PO Q6H PRN PRN Reason: Pain, moderate (4-7) Stop: 11/18/16 20:09 Last Admin: 11/17/16 04:57 Dose: 2 tab Pantoprazole Sodium (Protonix Ec Tab) 40 mg PO DAILY [facility] Last Admin: 11/17/16 10:47 Dose: 40 mg Prednisone (Prednisone Tab) 5 mg PO DAILY [facility] Last Admin: 11/17/16 10:47 Dose: 5 mg Sertraline HCl (Zoloft) 50 mg PO DAILY [facility] Trazodone HCl (Desyrel) 50 mg PO HS [facility] - Labs Labs: 11/17/16 11:12 11/17/16 11:12 PT 13.6 SECONDS (9.7-12.2) H 11/14/16 14:33 INR 1.2 11/14/16 14:33 APTT 32 SECONDS (21-34) 11/14/16 14:33 - Constitutional Appears: No Acute Distress, Chronically Ill - Head Exam Head Exam: ATRAUMATIC, NORMAL INSPECTION - Eye Exam Eye Exam: EOMI, Normal appearance - Neck Exam Neck Exam: Normal Inspection. absent: Tenderness - Respiratory Exam Respiratory Exam: Clear to Ausculation Bilateral, NORMAL BREATHING PATTERN - Cardiovascular Exam Cardiovascular Exam: REGULAR RHYTHM, +S1 - GI/Abdominal Exam GI & Abdominal Exam: Soft. absent: Tenderness - Extremities Exam Extremities Exam: Normal Inspection, Pedal Edema, Tenderness - Neurological Exam Neurological Exam: Alert, CN II-XII Intact - Skin Skin Exam: Dry, Warm Assessment and Plan (1) Achilles tendon avulsion Status: Acute (2) Acute on chronic renal failure Status: Acute (3) CKD (chronic kidney disease) Status: Acute (4) Hypertension Status: Acute (5) Type 2 diabetes mellitus with diabetic chronic kidney disease Status: Acute - Assessment and Plan (Free Text) Plan: Increase bystolic dose Surgical follow up same other meds
--- NOTE | 2016-11-17 13:33 | CP.PCM.PN ---
Subjective - Date & Time of Evaluation Date of Evaluation: 11/17/16 Time of Evaluation: 01:30 - Subjective Subjective: dictated Objective - Vital Signs/Intake and Output Vital Signs (last 24 hours): Temp Pulse Resp BP Pulse Ox 97.9 F 78 18 170/94 H 98 11/17/16 07:10 11/17/16 13:17 11/17/16 07:10 11/17/16 07:10 11/17/16 13:17 Intake and Output: 11/17/16 11/17/16 06:59 18:59 Intake Total 1350 Balance 1350 - Medications Medications: Current Medications Amitriptyline HCl (Elavil) 25 mg PO DAILY [facility] Artificial Tears (Artificial Tears) 0.1 ml OU Q6H PRN PRN Reason: Dry eyes Bisacodyl (Dulcolax) 5 mg PO ONCE ONE Stop: 11/18/16 08:01 Calcium Acetate (Phoslo) 667 mg PO BIDCC [facility] Last Admin: 11/17/16 08:02 Dose: 667 mg Cyclobenzaprine HCl (Flexeril) 5 mg PO TID [facility] Last Admin: 11/17/16 10:45 Dose: 5 mg Furosemide (Lasix) 60 mg PO DAILY [facility] Gabapentin (Neurontin) 100 mg PO TID [facility] Last Admin: 11/17/16 10:47 Dose: 100 mg Heparin Sodium (Porcine) (Heparin) 5,000 units SC Q12 [facility] Last Admin: 11/17/16 10:48 Dose: 5,000 units Home Med (Home Med) 1 unit OD TID [facility] Last Admin: 11/17/16 10:49 Dose: 1 unit Home Med (Home Med) 1 unit OD TID [facility] Last Admin: 11/17/16 10:49 Dose: 1 unit Home Med (Home Med) 1 unit OD DAILY [facility] Last Admin: 11/17/16 10:49 Dose: 1 unit Home Med (Home Med) 1 unit OU HS [facility] Last Admin: 11/16/16 21:45 Dose: 1 unit Home Med (Home Med) 1 unit OU BID [facility] Last Admin: 11/17/16 10:49 Dose: 1 unit Hydralazine HCl (Apresoline) 25 mg PO Q6H [facility] Last Admin: 11/17/16 06:32 Dose: 25 mg Cefepime HCl (Maxipime Iv 1 Gm Premix) 1 gm in 50 mls @ 100 mls/hr IVPB Q24H [facility] Last Admin: 11/16/16 20:00 Dose: 100 mls/hr Insulin Human Regular (Novolin R) 0 unit SC ACHS [facility] PRN Reason: Protocol Last Admin: 11/17/16 07:15 Dose: Not Given Metoprolol Tartrate (Lopressor) 100 mg PO BID [facility] Last Admin: 11/17/16 10:47 Dose: 100 mg Nebivolol (Bystolic) 15 mg PO DAILY [facility] Nifedipine (Procardia Xl) 60 mg PO DAILY [facility] Last Admin: 11/17/16 10:47 Dose: 60 mg Oxycodone HCl (Oxycontin Extended Release Tab) 20 mg PO Q12 [facility] Last Admin: 11/17/16 10:47 Dose: 20 mg Oxycodone/Acetaminophen (Percocet 5/325 Mg Tab) 2 tab PO Q6H PRN PRN Reason: Pain, moderate (4-7) Stop: 11/18/16 20:09 Last Admin: 11/17/16 04:57 Dose: 2 tab Pantoprazole Sodium (Protonix Ec Tab) 40 mg PO DAILY [facility] Last Admin: 11/17/16 10:47 Dose: 40 mg Prednisone (Prednisone Tab) 5 mg PO DAILY [facility] Last Admin: 11/17/16 10:47 Dose: 5 mg Sertraline HCl (Zoloft) 50 mg PO DAILY [facility] Trazodone HCl (Desyrel) 50 mg PO HS [facility] - Labs Labs: 11/17/16 11:12 11/17/16 11:12 PT 13.6 SECONDS (9.7-12.2) H 11/14/16 14:33 INR 1.2 11/14/16 14:33 APTT 32 SECONDS (21-34) 11/14/16 14:33
--- NOTE | 2016-11-17 14:29 | CARD ---
APPROVED REPORT EKG Measurement Heart [id number] CT [id number] TCb325 <Conclusion> Normal sinus rhythm Possible Left atrial enlargement Borderline ECG
[2016-11-17] MEDS: TRAVATAN OU SCH (21:48)
[2016-11-18] MEDS: Oxycodone/Acetaminophen 5/325 mg Tab PO PRN ×4 (00:26→20:27)
[2016-11-18] MEDS ORDERED: POLYETHYLENE GLYCOL 3350 17 GM/Dose PACKET PO ONE (07:13)
[2016-11-18] MEDS: (Novolin R) Insulin Human Regular 100 units/ml vial SC SCH ×4 (07:54→22:03)
[2016-11-18] MEDS ORDERED: Bisacodyl 5mg EC Tab PO ONE (08:00)
[2016-11-18 08:40] LABS: BASO % 0.5 % (0.0-2.0); EOS # 0.3 K/uL (0.0-0.7); EOS % 3.8 % (0.0-4.0); LYMPH # 3.8 K/uL (1.0-4.3); LYMPH % 43.9 % (20.0-40.0); MEAN CELL VOLUME 87.4 fL (81.0-99.0); MEAN CORPUSCULAR HEMOGLOBIN 28.1 pg (27.0-31.0); MEAN CORPUSCULAR HGB CONC 32.2 g/dL (33.0-37.0); MEAN PLATELET VOLUME 8.1 fL (7.2-11.7); MONO # 0.7 K/uL (0.0-0.8); MONO % 7.7 % (0.0-10.0); RED CELL DISTRIBUTION WIDTH 13.7 % (11.5-14.5); WHITE BLOOD COUNT 8.6 K/uL (4.8-10.8)
--- NOTE | 2016-11-18 08:57 | PN ---
DATE: 11/17/2016 SUBJECTIVE: The patient is awake, alert. She complains she just vomited she says and she is severel y constipated. She says she has not been to the bathroom since last Thursday to make a bowel movement , and she is generally constipated; goes every 3 days. She did get MiraLax and some other ____. I t hink she was taking MiraLax today. She is still with leg pains. I think she has diabetic neuropathy as she is diabetic. Her kidney functions she says are waxing and waning, but they are a little bett er. She remains with leg edema. T-max is 97.9, pulse 78. She denies abdominal pain however; denies any diarrhea, remains with constipation and vomiting. PHYSICAL EXAMINATION VITAL SIGNS: Blood pressure is 182/76. HEENT: Unremarkable. NECK: Supple. LUNGS: Clear. No crackles or rales present. HEART: S1, S2 regular. ABDOMEN: Prominent. No guarding, no rigidity present. Bowel sounds are present. EXTREMITIES: Have woody legs. They have still edema present, but cellulitis has decreased. LABORATORY DATA: White count is 8.0, hemoglobin 9.9, hematocrit 30.5, platelet count is 254. BUN is 41, creatinine is 3.8. Micro-crowe, blood cultures x 2 have been negative. At this time, she has been on antibiotics and the legs are looking better. I would discontinue the M axipime and would follow. IMPRESSION: Cellulitis is improved, edema remains because she does have renal insufficiency, diabeti c neuropathy and may have venous problems. We are also looking for also imaging of the lower extremi ties, arterial studies, which were done on 11/14/2016 and they show ____ venous which showed no evide nce of deep venous thrombosis. PLAN: At this time, I think we can start to discontinue cefepime. Fernando Hubbard MD cc: [id number] TT: 11/17/2016 14:19:30 Confirmation # [id number] Dictation # [id number] mn
[2016-11-18 08:59] LABS: POTASSIUM 5.1 mmol/L (3.6-5.2)
[2016-11-18 09:01] LABS: BILIRUBIN,TOTAL 0.5 mg/dL (0.2-1.3)
[2016-11-18 09:02] LABS: ALB/GLOB RATIO 0.9 (1.0-2.1); CALCIUM 8.6 mg/dl (8.6-10.4); TOTAL PROTEIN 7.6 g/dL (6.3-8.3)
[2016-11-18] MEDS: BESIVANCE OD SCH ×3 (10:16→17:42)
[2016-11-18] MEDS: PROLENSA OD SCH (10:17)
[2016-11-18] MEDS: SIMBRINZA OU SCH ×2 (10:18→17:42)
[2016-11-18] MEDS: oxyCODONE 20 mg ER Tab (oxyCONTIN) PO SCH ×2 (10:19→22:02)
[2016-11-18] MEDS: Pantoprazole 40 mg EC Tab PO SCH (10:19)
[2016-11-18] MEDS: NIFEdipine 60 mg ER Tab PO SCH (10:26)
--- NOTE | 2016-11-18 10:38 | CP.PCM.PN ---
Subjective - Date & Time of Evaluation Date of Evaluation: 11/18/16 Time of Evaluation: 10:36 - Subjective Subjective: seen and examined chronic leg swelling redness improving meds reviewed-started on lasix Objective - Vital Signs/Intake and Output Vital Signs (last 24 hours): Temp Pulse Resp BP Pulse Ox 98.2 F 66 20 150/89 97 11/18/16 08:00 11/18/16 08:00 11/18/16 08:00 11/18/16 10:18 11/18/16 08:00 Intake and Output: 11/18/16 11/18/16 06:59 18:59 Intake Total 250 Balance 250 - Medications Medications: Current Medications Amitriptyline HCl (Elavil) 25 mg PO DAILY [facility] Last Admin: 11/18/16 10:13 Dose: 25 mg Artificial Tears (Artificial Tears) 0.1 ml OU Q6H PRN PRN Reason: Dry eyes Calcium Acetate (Phoslo) 667 mg PO BIDCC [facility] Last Admin: 11/18/16 08:03 Dose: 667 mg Cyclobenzaprine HCl (Flexeril) 5 mg PO TID [facility] Last Admin: 11/18/16 10:14 Dose: 5 mg Furosemide (Lasix) 60 mg PO DAILY [facility] Last Admin: 11/18/16 10:18 Dose: 60 mg Gabapentin (Neurontin) 100 mg PO TID [facility] Last Admin: 11/18/16 10:19 Dose: 100 mg Heparin Sodium (Porcine) (Heparin) 5,000 units SC Q12 [facility] Last Admin: 11/18/16 10:14 Dose: 5,000 units Home Med (Home Med) 1 unit OD TID [facility] Last Admin: 11/18/16 10:16 Dose: 1 unit Home Med (Home Med) 1 unit OD TID [facility] Last Admin: 11/18/16 10:17 Dose: 1 unit Home Med (Home Med) 1 unit OD DAILY [facility] Last Admin: 11/18/16 10:17 Dose: 1 unit Home Med (Home Med) 1 unit OU HS [facility] Last Admin: 11/17/16 21:48 Dose: 1 unit Home Med (Home Med) 1 unit OU BID [facility] Last Admin: 11/18/16 10:18 Dose: 1 unit Hydralazine HCl (Apresoline) 25 mg PO Q6H [facility] Last Admin: 11/18/16 06:37 Dose: 25 mg Insulin Human Regular (Novolin R) 0 unit SC ACHS [facility] PRN Reason: Protocol Last Admin: 11/18/16 07:54 Dose: Not Given Metoprolol Tartrate (Lopressor) 100 mg PO BID [facility] Last Admin: 11/18/16 10:18 Dose: 100 mg Nebivolol (Bystolic) 15 mg PO DAILY [facility] Last Admin: 11/18/16 10:13 Dose: 15 mg Nifedipine (Procardia Xl) 60 mg PO DAILY [facility] Last Admin: 11/18/16 10:26 Dose: 60 mg Oxycodone HCl (Oxycontin Extended Release Tab) 20 mg PO Q12 [facility] Last Admin: 11/18/16 10:19 Dose: 20 mg Oxycodone/Acetaminophen (Percocet 5/325 Mg Tab) 2 tab PO Q6H PRN PRN Reason: Pain, moderate (4-7) Stop: 11/18/16 20:09 Last Admin: 11/18/16 06:41 Dose: 2 tab Pantoprazole Sodium (Protonix Ec Tab) 40 mg PO DAILY [facility] Last Admin: 11/18/16 10:19 Dose: 40 mg Prednisone (Prednisone Tab) 5 mg PO DAILY [facility] Last Admin: 11/18/16 10:19 Dose: 5 mg Trazodone HCl (Desyrel) 50 mg PO HS [facility] Last Admin: 11/17/16 21:50 Dose: 50 mg - Labs Labs: 11/18/16 08:25 11/18/16 08:25 PT 13.6 SECONDS (9.7-12.2) H 11/14/16 14:33 INR 1.2 11/14/16 14:33 APTT 32 SECONDS (21-34) 11/14/16 14:33 - Constitutional Appears: Non-toxic, No Acute Distress, Chronically Ill - Head Exam Head Exam: NORMAL INSPECTION - Eye Exam Eye Exam: Normal appearance - ENT Exam ENT Exam: Mucous Membranes Moist, Normal Exam - Neck Exam Neck Exam: Normal Inspection - Respiratory Exam Respiratory Exam: Clear to Ausculation Bilateral, NORMAL BREATHING PATTERN - Cardiovascular Exam Cardiovascular Exam: REGULAR RHYTHM, RRR - GI/Abdominal Exam GI & Abdominal Exam: Distended, Soft, Normal Bowel Sounds - Extremities Exam Extremities Exam: Pedal Edema Additional comments: erythema - Neurological Exam Neurological Exam: Oriented x3 Additional comments: loss of sensation b/l lower ext Assessment and Plan (1) Anemia Status: Acute (2) CKD (chronic kidney disease) Status: Acute (3) Hypertension Status: Acute (4) Leg swelling Status: Acute (5) Acute on chronic renal failure Status: Chronic (6) Type 2 diabetes mellitus with diabetic chronic kidney disease Status: Chronic - Assessment and Plan (Free Text) Assessment: agree w/ lasix, lower to 40mg daily antibiotics per ID
--- NOTE | 2016-11-18 11:51 | CP.PCM.PN ---
Subjective - Date & Time of Evaluation Date of Evaluation: 11/18/16 Time of Evaluation: 07:35 - Subjective Subjective: PGY [address] Renteria Patient seen and examined. Patient feeling better today. Discussed on rounds with patient and her daughter on the phone regarding plan for discharge to rehab when bed is available. Patient's daughter to look at facilities and discuss with case management. Objective - Vital Signs/Intake and Output Vital Signs (last 24 hours): Temp Pulse Resp BP Pulse Ox 98.2 F 66 20 150/89 97 11/18/16 08:00 11/18/16 08:00 11/18/16 08:00 11/18/16 10:18 11/18/16 08:00 Intake and Output: 11/18/16 11/18/16 06:59 18:59 Intake Total 250 Balance 250 - Medications Medications: Current Medications Amitriptyline HCl (Elavil) 25 mg PO DAILY [facility] Last Admin: 11/18/16 10:13 Dose: 25 mg Artificial Tears (Artificial Tears) 0.1 ml OU Q6H PRN PRN Reason: Dry eyes Calcium Acetate (Phoslo) 667 mg PO BIDCC [facility] Last Admin: 11/18/16 08:03 Dose: 667 mg Cyclobenzaprine HCl (Flexeril) 5 mg PO TID [facility] Last Admin: 11/18/16 10:14 Dose: 5 mg Furosemide (Lasix) 40 mg PO DAILY [facility] Gabapentin (Neurontin) 100 mg PO TID [facility] Last Admin: 11/18/16 10:19 Dose: 100 mg Heparin Sodium (Porcine) (Heparin) 5,000 units SC Q12 [facility] Last Admin: 11/18/16 10:14 Dose: 5,000 units Home Med (Home Med) 1 unit OD TID [facility] Last Admin: 11/18/16 10:16 Dose: 1 unit Home Med (Home Med) 1 unit OD TID [facility] Last Admin: 11/18/16 10:17 Dose: 1 unit Home Med (Home Med) 1 unit OD DAILY [facility] Last Admin: 11/18/16 10:17 Dose: 1 unit Home Med (Home Med) 1 unit OU HS [facility] Last Admin: 11/17/16 21:48 Dose: 1 unit Home Med (Home Med) 1 unit OU BID [facility] Last Admin: 11/18/16 10:18 Dose: 1 unit Hydralazine HCl (Apresoline) 25 mg PO Q6H [facility] Last Admin: 11/18/16 06:37 Dose: 25 mg Cefepime HCl 1 gm/ Dextrose 50 mls @ 100 mls/hr IVPB Q24H [facility] Insulin Human Regular (Novolin R) 0 unit SC ACHS [facility] PRN Reason: Protocol Last Admin: 11/18/16 07:54 Dose: Not Given Metoprolol Tartrate (Lopressor) 100 mg PO BID [facility] Last Admin: 11/18/16 10:18 Dose: 100 mg Nebivolol (Bystolic) 15 mg PO DAILY [facility] Last Admin: 11/18/16 10:13 Dose: 15 mg Nifedipine (Procardia Xl) 60 mg PO DAILY [facility] Last Admin: 11/18/16 10:26 Dose: 60 mg Oxycodone HCl (Oxycontin Extended Release Tab) 20 mg PO Q12 [facility] Last Admin: 11/18/16 10:19 Dose: 20 mg Oxycodone/Acetaminophen (Percocet 5/325 Mg Tab) 2 tab PO Q6H PRN PRN Reason: Pain, moderate (4-7) Stop: 11/18/16 20:09 Last Admin: 11/18/16 06:41 Dose: 2 tab Pantoprazole Sodium (Protonix Ec Tab) 40 mg PO DAILY [facility] Last Admin: 11/18/16 10:19 Dose: 40 mg Prednisone (Prednisone Tab) 5 mg PO DAILY [facility] Last Admin: 11/18/16 10:19 Dose: 5 mg Trazodone HCl (Desyrel) 50 mg PO HS [facility] Last Admin: 11/17/16 21:50 Dose: 50 mg - Labs Labs: 11/18/16 08:25 11/18/16 08:25 PT 13.6 SECONDS (9.7-12.2) H 11/14/16 14:33 INR 1.2 11/14/16 14:33 APTT 32 SECONDS (21-34) 11/14/16 14:33 - Constitutional Appears: No Acute Distress - Head Exam Head Exam: ATRAUMATIC, NORMOCEPHALIC - Eye Exam Eye Exam: EOMI - ENT Exam ENT Exam: Mucous Membranes Moist - Respiratory Exam Respiratory Exam: Clear to Ausculation Bilateral - Cardiovascular Exam Cardiovascular Exam: +S1, +S2 - GI/Abdominal Exam GI & Abdominal Exam: Soft, Normal Bowel Sounds. absent: Guarding, Tenderness - Extremities Exam Extremities Exam: Pedal Edema Additional comments: erythema of b/l lower extremities resolved mild tenderness of right heel small blister on medial aspect right hallux b/l 1+ pitting edema - Neurological Exam Neurological Exam: Alert, Awake - Skin Skin Exam: Warm Assessment and Plan - Assessment and Plan (Free Text) Assessment: Lower Extremity swelling and erythema improved suspect cellulitis Lower extremity venous doppler negative for DVT b/l foot xray: soft tissue swelling without acute articular or osseous abnormality procalcitonin - low blood cultures - negative after 48 hours Cont cefepime patient to transition to keflex for an additional 10 days when discharged ID consult, Dr. Hubbard- help appreciated follow up any recommendations Echo- normal LVEF, moderate pulmonary HTN @ 47mmHg, diastolic HF continue lasix JESSICA on CKD Cr decreased from 3.8 stop IVF Nephrology consult- Dr. Morillo- help appreciated Acute kidney injury on chronic kidney disease Multiple etiologies possible - suspect volume depletion along with sepsis induced renal failure, can not exclude obstruction and nephrotoxicity Progression of ckd possible as well Agree with IVF and empiric abx No nephrotoxins Renal ultrasound- small amount of perinephric fluid adjacent to lower pole left kidney, increased echogenicity bilateral renal cortices suggestive for medical renal disease Hypoglycemia AM cortisol levels wnl accuchecks q4h HTN bystolic 15mg daily lopressor 100mg BID nifedipine 60mg daily Add hydralazine 25mg Q6h monitor on tele Diabetes accuchecks q4h ISS mod consistent carb diet Diabetic Neuropathy gabapentin 100mg TID adding amitriptyline 25mg daily Muscle Spasm Flexeril 5mg TID Rheumatoid arthritis continue prednisone daily Hyperphosphatemia continue Phoslo Monitor Depression Pt emotionally labile Psych consult - help appreciated start trazodone 50mg PO HS Prophylactic measure heparin 5000 q12h protonix 40mg daily oxycodone 20mg Q12h percocet 2 tab q6h prn Disposition discharge to rehab when bed available. d/w case management, patient, and patient's daughter
--- NOTE | 2016-11-18 12:54 | CP.PCM.PN ---
Subjective - Date & Time of Evaluation Date of Evaluation: 11/18/16 Time of Evaluation: 13:00 - Subjective Subjective: On treatment for sepsis, seen by infectious disease will follow-up Objective - Vital Signs/Intake and Output Vital Signs (last 24 hours): Temp Pulse Resp BP Pulse Ox 98.2 F 72 20 150/89 98 11/18/16 08:00 11/18/16 11:49 11/18/16 08:00 11/18/16 10:18 11/18/16 11:49 Intake and Output: 11/18/16 11/18/16 06:59 18:59 Intake Total 250 Balance 250 - Medications Medications: Current Medications Amitriptyline HCl (Elavil) 25 mg PO DAILY [facility] Last Admin: 11/18/16 10:13 Dose: 25 mg Artificial Tears (Artificial Tears) 0.1 ml OU Q6H PRN PRN Reason: Dry eyes Calcium Acetate (Phoslo) 667 mg PO BIDCC [facility] Last Admin: 11/18/16 08:03 Dose: 667 mg Cyclobenzaprine HCl (Flexeril) 5 mg PO TID [facility] Last Admin: 11/18/16 10:14 Dose: 5 mg Furosemide (Lasix) 40 mg PO DAILY [facility] Gabapentin (Neurontin) 100 mg PO TID [facility] Last Admin: 11/18/16 10:19 Dose: 100 mg Heparin Sodium (Porcine) (Heparin) 5,000 units SC Q12 [facility] Last Admin: 11/18/16 10:14 Dose: 5,000 units Home Med (Home Med) 1 unit OD TID [facility] Last Admin: 11/18/16 10:16 Dose: 1 unit Home Med (Home Med) 1 unit OD TID [facility] Last Admin: 11/18/16 10:17 Dose: 1 unit Home Med (Home Med) 1 unit OD DAILY [facility] Last Admin: 11/18/16 10:17 Dose: 1 unit Home Med (Home Med) 1 unit OU HS [facility] Last Admin: 11/17/16 21:48 Dose: 1 unit Home Med (Home Med) 1 unit OU BID [facility] Last Admin: 11/18/16 10:18 Dose: 1 unit Hydralazine HCl (Apresoline) 25 mg PO Q6H [facility] Last Admin: 11/18/16 06:37 Dose: 25 mg Cefepime HCl 1 gm/ Dextrose 50 mls @ 100 mls/hr IVPB Q24H [facility] Insulin Human Regular (Novolin R) 0 unit SC ACHS [facility] PRN Reason: Protocol Last Admin: 11/18/16 12:20 Dose: 1 unit Metoprolol Tartrate (Lopressor) 100 mg PO BID [facility] Last Admin: 11/18/16 10:18 Dose: 100 mg Nebivolol (Bystolic) 15 mg PO DAILY [facility] Last Admin: 11/18/16 10:13 Dose: 15 mg Nifedipine (Procardia Xl) 60 mg PO DAILY [facility] Last Admin: 11/18/16 10:26 Dose: 60 mg Oxycodone HCl (Oxycontin Extended Release Tab) 20 mg PO Q12 [facility] Last Admin: 11/18/16 10:19 Dose: 20 mg Oxycodone/Acetaminophen (Percocet 5/325 Mg Tab) 2 tab PO Q6H PRN PRN Reason: Pain, moderate (4-7) Stop: 11/18/16 20:09 Last Admin: 11/18/16 06:41 Dose: 2 tab Pantoprazole Sodium (Protonix Ec Tab) 40 mg PO DAILY [facility] Last Admin: 11/18/16 10:19 Dose: 40 mg Prednisone (Prednisone Tab) 5 mg PO DAILY [facility] Last Admin: 11/18/16 10:19 Dose: 5 mg Trazodone HCl (Desyrel) 50 mg PO HS [facility] Last Admin: 11/17/16 21:50 Dose: 50 mg - Labs Labs: 11/18/16 08:25 11/18/16 08:25 PT 13.6 SECONDS (9.7-12.2) H 11/14/16 14:33 INR 1.2 11/14/16 14:33 APTT 32 SECONDS (21-34) 11/14/16 14:33 - Constitutional Appears: Non-toxic - Head Exam Head Exam: ATRAUMATIC - Eye Exam Eye Exam: EOMI - ENT Exam ENT Exam: Mucous Membranes Moist - Neck Exam Neck Exam: absent: Lymphadenopathy, Thyromegaly - Respiratory Exam Respiratory Exam: Clear to Ausculation Bilateral. absent: Rales - Cardiovascular Exam Cardiovascular Exam: REGULAR RHYTHM, Murmur - GI/Abdominal Exam GI & Abdominal Exam: Normal Bowel Sounds. absent: Organomegaly - Rectal Exam Rectal Exam: Deferred - Extremities Exam Extremities Exam: Normal Capillary Refill. 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
--- NOTE | 2016-11-18 15:10 | CP.PCM.PN ---
Subjective - Date & Time of Evaluation Date of Evaluation: 11/18/16 Time of Evaluation: 02:45 - Subjective Subjective: dictated Objective - Vital Signs/Intake and Output Vital Signs (last 24 hours): Temp Pulse Resp BP Pulse Ox 98.2 F 66 20 174/82 H 98 11/18/16 08:00 11/18/16 13:52 11/18/16 08:00 11/18/16 13:52 11/18/16 11:49 Intake and Output: 11/18/16 11/18/16 06:59 18:59 Intake Total 250 Balance 250 - Medications Medications: Current Medications Amitriptyline HCl (Elavil) 25 mg PO DAILY [facility] Last Admin: 11/18/16 10:13 Dose: 25 mg Artificial Tears (Artificial Tears) 0.1 ml OU Q6H PRN PRN Reason: Dry eyes Calcium Acetate (Phoslo) 667 mg PO BIDCC [facility] Last Admin: 11/18/16 08:03 Dose: 667 mg Cyclobenzaprine HCl (Flexeril) 5 mg PO TID [facility] Last Admin: 11/18/16 13:28 Dose: 5 mg Furosemide (Lasix) 40 mg PO DAILY [facility] Gabapentin (Neurontin) 100 mg PO TID [facility] Last Admin: 11/18/16 13:31 Dose: 100 mg Heparin Sodium (Porcine) (Heparin) 5,000 units SC Q12 [facility] Last Admin: 11/18/16 10:14 Dose: 5,000 units Home Med (Home Med) 1 unit OD TID [facility] Last Admin: 11/18/16 13:29 Dose: 1 unit Home Med (Home Med) 1 unit OD TID [facility] Last Admin: 11/18/16 13:29 Dose: 1 unit Home Med (Home Med) 1 unit OD DAILY [facility] Last Admin: 11/18/16 10:17 Dose: 1 unit Home Med (Home Med) 1 unit OU HS [facility] Last Admin: 11/17/16 21:48 Dose: 1 unit Home Med (Home Med) 1 unit OU BID [facility] Last Admin: 11/18/16 10:18 Dose: 1 unit Hydralazine HCl (Apresoline) 25 mg PO Q6H [facility] Last Admin: 11/18/16 13:28 Dose: 25 mg Cefepime HCl 1 gm/ Dextrose 50 mls @ 100 mls/hr IVPB Q24H [facility] Last Admin: 11/18/16 13:31 Dose: 100 mls/hr Insulin Human Regular (Novolin R) 0 unit SC ACHS [facility] PRN Reason: Protocol Last Admin: 11/18/16 12:20 Dose: 1 unit Metoprolol Tartrate (Lopressor) 100 mg PO BID [facility] Last Admin: 11/18/16 10:18 Dose: 100 mg Nebivolol (Bystolic) 15 mg PO DAILY [facility] Last Admin: 11/18/16 10:13 Dose: 15 mg Nifedipine (Procardia Xl) 60 mg PO DAILY [facility] Last Admin: 11/18/16 10:26 Dose: 60 mg Oxycodone HCl (Oxycontin Extended Release Tab) 20 mg PO Q12 [facility] Last Admin: 11/18/16 10:19 Dose: 20 mg Oxycodone/Acetaminophen (Percocet 5/325 Mg Tab) 2 tab PO Q6H PRN PRN Reason: Pain, moderate (4-7) Stop: 11/18/16 20:09 Last Admin: 11/18/16 13:34 Dose: 2 tab Pantoprazole Sodium (Protonix Ec Tab) 40 mg PO DAILY [facility] Last Admin: 11/18/16 10:19 Dose: 40 mg Prednisone (Prednisone Tab) 5 mg PO DAILY [facility] Last Admin: 11/18/16 10:19 Dose: 5 mg Trazodone HCl (Desyrel) 50 mg PO HS [facility] Last Admin: 11/17/16 21:50 Dose: 50 mg - Labs Labs: 11/18/16 08:25 11/18/16 08:25 PT 13.6 SECONDS (9.7-12.2) H 11/14/16 14:33 INR 1.2 11/14/16 14:33 APTT 32 SECONDS (21-34) 11/14/16 14:33
--- NOTE | 2016-11-18 16:03 | PN ---
DATE: 11/18/2016 SUBJECTIVE: The patient says she still remains constipated, had some nausea. She is getting Maxipim e now as her legs turned to become red, warm. She showed me an area which is forming a blister on he r right great toe. However, is not as bad, but she did receive antibiotics only 4 days, so will cont inue antibiotics IV for 3 more days, as she is going to the rehab and would be able to get it there a nd may bring down the cellulitis and the redness down on the feet which remains with mild edema at th is time. PHYSICAL EXAMINATION: VITAL SIGNS: T-max is 98.2, pulse 66, blood pressure 174/82, respirations are 20. HEENT: Head is atraumatic, normocephalic. NECK: Supple. LUNGS: Clear. No crackles or rales present. HEART: S1, S2 regular. ABDOMEN: Soft, nontender, no guarding, no rigidity present. EXTREMITIES: Have bilateral erythema which is resolving and has tenderness with a small blister form ing and does still have warmth. We will leave her on Maxipime for 3 days if she is to go to rehab; otherwise, I will continue Maxipim e here for now. She is already on Maxipime in spite of her allergies, and is also on gabapentin at t his time and also on ____ for her neuropathy that may be related to diabetes. Her creatinine is 3.9 still and she needs to be monitored by renal at this time. She needs to follow up ____. She has bee n started on Lasix who has chronic kidney disease, type 2, and will be on Maxipime for 3 days. Fernando Hubbard MD cc: [id number] TT: 11/18/2016 16:03:18 Confirmation # [id number] Dictation # [id number] mn
[2016-11-18] MEDS: TRAVATAN OU SCH (22:05)
[2016-11-19] MEDS: Oxycodone/Acetaminophen 5/325 mg Tab PO PRN ×2 (06:52→15:50)
[2016-11-19] MEDS: (Novolin R) Insulin Human Regular 100 units/ml vial SC SCH ×3 (08:09→18:30)
[2016-11-19 08:24] LABS: BASO # 0.1 K/uL (0.0-0.2); EOS # 0.4 K/uL (0.0-0.7); LYMPH % 39.7 % (20.0-40.0); NRBC % 0.1 % (0.0-2.0)
[2016-11-19 08:31] LABS: BASO % 1.2 % (0.0-2.0); EOS % 3.8 % (0.0-4.0); LYMPH # 3.8 K/uL (1.0-4.3); MEAN CELL VOLUME 87.1 fL (81.0-99.0); MEAN CORPUSCULAR HEMOGLOBIN 28.3 pg (27.0-31.0); MEAN CORPUSCULAR HGB CONC 32.5 g/dL (33.0-37.0); MEAN PLATELET VOLUME 8.1 fL (7.2-11.7); MONO # 0.7 K/uL (0.0-0.8); MONO % 7.6 % (0.0-10.0); RED CELL DISTRIBUTION WIDTH 13.7 % (11.5-14.5); WHITE BLOOD COUNT 9.7 K/uL (4.8-10.8)
[2016-11-19 08:41] LABS: POTASSIUM 4.9 mmol/L (3.6-5.2)
[2016-11-19 08:43] LABS: BILIRUBIN,TOTAL 0.5 mg/dL (0.2-1.3); TOTAL PROTEIN 8.2 g/dL (6.3-8.3)
[2016-11-19 08:44] LABS: CALCIUM 9.1 mg/dl (8.6-10.4)
[2016-11-19] MEDS: oxyCODONE 20 mg ER Tab (oxyCONTIN) PO SCH (10:10)
[2016-11-19] MEDS: Pantoprazole 40 mg EC Tab PO SCH (10:10)
[2016-11-19] MEDS: SIMBRINZA OU SCH ×2 (10:12→18:36)
[2016-11-19] MEDS: BESIVANCE OD SCH ×3 (10:12→19:34)
[2016-11-19] MEDS: PROLENSA OD SCH (10:12)
[2016-11-19] MEDS: NIFEdipine 60 mg ER Tab PO SCH (10:19)
[2016-11-19] MEDS ORDERED: Bisacodyl 5mg EC Tab PO ONE (11:29)
[2016-11-19] MEDS: POLYETHYLENE GLYCOL 3350 17 GM/Dose PACKET PO STA ×2 (11:43→11:47)
--- NOTE | 2016-11-19 13:27 | CP.PCM.PN ---
Subjective - Date & Time of Evaluation Date of Evaluation: 11/19/16 Time of Evaluation: 13:25 - Subjective Subjective: Alert; still with c/o LE edema Renal US consistent with CKD GFR-14 More metabolic acidosis now HTN uncontrolled Objective - Vital Signs/Intake and Output Vital Signs (last 24 hours): Temp Pulse Resp BP Pulse Ox 97.9 F 71 18 181/85 H 98 11/19/16 07:20 11/19/16 13:03 11/19/16 07:20 11/19/16 11:22 11/19/16 13:03 - Medications Medications: Current Medications Amitriptyline HCl (Elavil) 25 mg PO DAILY [facility] Last Admin: 11/19/16 10:12 Dose: 25 mg Artificial Tears (Artificial Tears) 0.1 ml OU Q6H PRN PRN Reason: Dry eyes Calcium Acetate (Phoslo) 667 mg PO BIDCC [facility] Last Admin: 11/19/16 08:31 Dose: 667 mg Cyclobenzaprine HCl (Flexeril) 5 mg PO TID [facility] Last Admin: 11/19/16 10:13 Dose: 5 mg Furosemide (Lasix) 40 mg PO DAILY [facility] Last Admin: 11/19/16 10:10 Dose: 40 mg Gabapentin (Neurontin) 100 mg PO TID [facility] Last Admin: 11/19/16 10:10 Dose: 100 mg Heparin Sodium (Porcine) (Heparin) 5,000 units SC Q12 [facility] Last Admin: 11/19/16 10:11 Dose: 5,000 units Home Med (Home Med) 1 unit OD TID [facility] Last Admin: 11/19/16 10:12 Dose: 1 unit Home Med (Home Med) 1 unit OD TID [facility] Last Admin: 11/19/16 10:12 Dose: 1 unit Home Med (Home Med) 1 unit OD DAILY [facility] Last Admin: 11/19/16 10:12 Dose: 1 unit Home Med (Home Med) 1 unit OU HS [facility] Last Admin: 11/18/16 22:05 Dose: 1 unit Home Med (Home Med) 1 unit OU BID [facility] Last Admin: 11/19/16 10:12 Dose: 1 unit Hydralazine HCl (Apresoline) 25 mg PO Q6H [facility] Last Admin: 11/19/16 06:30 Dose: 25 mg Cefepime HCl 1 gm/ Dextrose 50 mls @ 100 mls/hr IVPB Q24H [facility] Last Admin: 11/19/16 12:22 Dose: 100 mls/hr Insulin Human Regular (Novolin R) 0 unit SC ACHS [facility] PRN Reason: Protocol Last Admin: 11/19/16 12:22 Dose: 1 unit Metoprolol Tartrate (Lopressor) 100 mg PO BID [facility] Last Admin: 11/19/16 10:11 Dose: 100 mg Nebivolol (Bystolic) 15 mg PO DAILY [facility] Last Admin: 11/19/16 10:11 Dose: 15 mg Nifedipine (Procardia Xl) 60 mg PO DAILY [facility] Last Admin: 11/19/16 10:19 Dose: 60 mg Oxycodone HCl (Oxycontin Extended Release Tab) 20 mg PO Q12 [facility] Last Admin: 11/19/16 10:10 Dose: 20 mg Oxycodone/Acetaminophen (Percocet 5/325 Mg Tab) 2 tab PO Q8H PRN PRN Reason: Pain, moderate (4-7) Stop: 11/22/16 06:40 Last Admin: 11/19/16 06:52 Dose: 2 tab Pantoprazole Sodium (Protonix Ec Tab) 40 mg PO DAILY [facility] Last Admin: 11/19/16 10:10 Dose: 40 mg Prednisone (Prednisone Tab) 5 mg PO DAILY [facility] Last Admin: 11/19/16 10:11 Dose: 5 mg Trazodone HCl (Desyrel) 50 mg PO HS [facility] Last Admin: 11/18/16 22:00 Dose: 50 mg - Labs Labs: 11/19/16 08:15 11/19/16 08:15 PT 13.6 SECONDS (9.7-12.2) H 11/14/16 14:33 INR 1.2 11/14/16 14:33 APTT 32 SECONDS (21-34) 11/14/16 14:33 - Constitutional Appears: No Acute Distress, Chronically Ill - Head Exam Head Exam: ATRAUMATIC, NORMAL INSPECTION - Eye Exam Eye Exam: EOMI, Normal appearance - Neck Exam Neck Exam: Normal Inspection. absent: Tenderness - Respiratory Exam Respiratory Exam: Clear to Ausculation Bilateral, NORMAL BREATHING PATTERN - Cardiovascular Exam Cardiovascular Exam: REGULAR RHYTHM, +S1 - GI/Abdominal Exam GI & Abdominal Exam: Soft. absent: Tenderness - Extremities Exam Extremities Exam: Pedal Edema, Tenderness - Neurological Exam Neurological Exam: Alert, CN II-XII Intact - Skin Skin Exam: Dry, Warm Assessment and Plan (1) Achilles tendon avulsion Status: Acute (2) Acute on chronic renal failure Status: Chronic (3) Hypertension Status: Acute (4) Type 2 diabetes mellitus with diabetic chronic kidney disease Status: Chronic (5) CKD stage 4 due to type 2 diabetes mellitus Status: Acute - Assessment and Plan (Free Text) Plan: Increase BP meds Start na bicarb Continue lasix
--- NOTE | 2016-11-19 14:45 | CP.PCM.PN ---
Subjective - Date & Time of Evaluation Date of Evaluation: 11/19/16 Time of Evaluation: 07:10 - Subjective Subjective: PGY1 progress note for Dr. Cobian Patient seen and examined. Patient states she is feeling better today than yesterday. Patient states she wants to continue working with PT as she is already seeing benefits. Patient pending insurance auth for rehab placement. Objective - Vital Signs/Intake and Output Vital Signs (last 24 hours): Temp Pulse Resp BP Pulse Ox 97.9 F 71 18 181/85 H 98 11/19/16 07:20 11/19/16 13:03 11/19/16 07:20 11/19/16 11:22 11/19/16 13:03 - Medications Medications: Current Medications Amitriptyline HCl (Elavil) 25 mg PO DAILY [facility] Last Admin: 11/19/16 10:12 Dose: 25 mg Artificial Tears (Artificial Tears) 0.1 ml OU Q6H PRN PRN Reason: Dry eyes Calcium Acetate (Phoslo) 667 mg PO TID [facility] Last Admin: 11/19/16 14:28 Dose: 667 mg Cyclobenzaprine HCl (Flexeril) 5 mg PO TID [facility] Last Admin: 11/19/16 14:28 Dose: 5 mg Furosemide (Lasix) 40 mg PO BID [facility] Gabapentin (Neurontin) 100 mg PO TID [facility] Last Admin: 11/19/16 14:28 Dose: 100 mg Heparin Sodium (Porcine) (Heparin) 5,000 units SC Q12 [facility] Last Admin: 11/19/16 10:11 Dose: 5,000 units Home Med (Home Med) 1 unit OD TID [facility] Last Admin: 11/19/16 14:29 Dose: 1 unit Home Med (Home Med) 1 unit OD TID [facility] Last Admin: 11/19/16 14:28 Dose: 1 unit Home Med (Home Med) 1 unit OD DAILY [facility] Last Admin: 11/19/16 10:12 Dose: 1 unit Home Med (Home Med) 1 unit OU HS [facility] Last Admin: 11/18/16 22:05 Dose: 1 unit Home Med (Home Med) 1 unit OU BID [facility] Last Admin: 11/19/16 10:12 Dose: 1 unit Hydralazine HCl (Apresoline) 50 mg PO TID [facility] Last Admin: 11/19/16 14:29 Dose: 50 mg Cefepime HCl 1 gm/ Dextrose 50 mls @ 100 mls/hr IVPB Q24H [facility] Last Admin: 11/19/16 12:22 Dose: 100 mls/hr Insulin Human Regular (Novolin R) 0 unit SC ACHS [facility] PRN Reason: Protocol Last Admin: 11/19/16 12:22 Dose: 1 unit Nebivolol (Bystolic) 20 mg PO DAILY [facility] Nifedipine (Procardia Xl) 60 mg PO DAILY [facility] Last Admin: 11/19/16 10:19 Dose: 60 mg Oxycodone HCl (Oxycontin Extended Release Tab) 20 mg PO Q12 [facility] Last Admin: 11/19/16 10:10 Dose: 20 mg Oxycodone/Acetaminophen (Percocet 5/325 Mg Tab) 2 tab PO Q8H PRN PRN Reason: Pain, moderate (4-7) Stop: 11/22/16 06:40 Last Admin: 11/19/16 06:52 Dose: 2 tab Pantoprazole Sodium (Protonix Ec Tab) 40 mg PO DAILY [facility] Last Admin: 11/19/16 10:10 Dose: 40 mg Prednisone (Prednisone Tab) 5 mg PO DAILY [facility] Last Admin: 11/19/16 10:11 Dose: 5 mg Sodium Bicarbonate (Sodium Bicarbonate Tab) 650 mg PO BID [facility] Trazodone HCl (Desyrel) 50 mg PO HS [facility] Last Admin: 11/18/16 22:00 Dose: 50 mg - Labs Labs: 11/19/16 08:15 11/19/16 08:15 PT 13.6 SECONDS (9.7-12.2) H 11/14/16 14:33 INR 1.2 11/14/16 14:33 APTT 32 SECONDS (21-34) 11/14/16 14:33 - Constitutional Appears: Non-toxic, No Acute Distress - Head Exam Head Exam: ATRAUMATIC - Eye Exam Eye Exam: EOMI - ENT Exam ENT Exam: Mucous Membranes Moist - Respiratory Exam Respiratory Exam: NORMAL BREATHING PATTERN. absent: Rales, Rhonchi, Wheezes - Cardiovascular Exam Cardiovascular Exam: +S1, +S2 - GI/Abdominal Exam GI & Abdominal Exam: Soft, Normal Bowel Sounds. absent: Tenderness - Extremities Exam Extremities Exam: Pedal Edema (1+ pitting bilaterally), Tenderness (b/l tenderness, right leg slightly more tender on palpation) - Psychiatric Exam Psychiatric exam: Anxious - Skin Skin Exam: Warm Assessment and Plan - Assessment and Plan (Free Text) Assessment: Lower Extremity swelling and erythema improved suspect cellulitis Lower extremity venous doppler negative for DVT b/l foot xray: soft tissue swelling without acute articular or osseous abnormality procalcitonin - low blood cultures - negative after 48 hours Cont cefepime patient to transition to keflex for an additional 10 days when discharged ID consult, Dr. Hubbard- help appreciated follow up any recommendations Echo- normal LVEF, moderate pulmonary HTN @ 47mmHg, diastolic HF lasix increased to 40mg PO BID per Dr. Morillo JESSICA on CKD Cr 4.0 stop IVF Nephrology consult- Dr. Morillo- help appreciated Acute kidney injury on chronic kidney disease Multiple etiologies possible - suspect volume depletion along with sepsis induced renal failure, can not exclude obstruction and nephrotoxicity Progression of ckd possible as well Agree with IVF and empiric abx No nephrotoxins Renal ultrasound- small amount of perinephric fluid adjacent to lower pole left kidney, increased echogenicity bilateral renal cortices suggestive for medical renal disease add sodium bicarb 650mg PO BID Hypoglycemia AM cortisol levels wnl accuchecks q4h HTN bystolic increased to 20mg daily lopressor 100mg BID nifedipine 60mg daily Add hydralazine 50 TID monitor on tele Diabetes accuchecks q4h ISS mod consistent carb diet Diabetic Neuropathy gabapentin 100mg TID adding amitriptyline 25mg daily Muscle Spasm Flexeril 5mg TID Rheumatoid arthritis continue prednisone daily Hyperphosphatemia continue Phoslo Monitor Depression Pt emotionally labile Psych consult - help appreciated start trazodone 50mg PO HS Prophylactic measure heparin 5000 q12h protonix 40mg daily oxycodone 20mg Q12h percocet 2 tab q8h prn Disposition discharge to rehab when bed available, insurance auth pending
[2016-11-19 15:47] VITALS: BP 164/79; PULSE 67; RESP 20; TEMP 98.4; O2SAT 97
--- NOTE | 2016-11-19 20:13 | CP.PCM.PN ---
Subjective - Date & Time of Evaluation Date of Evaluation: 11/19/16 Time of Evaluation: 13:00 - Subjective Subjective: improved edema, EST as out pt Objective - Vital Signs/Intake and Output Vital Signs (last 24 hours): Temp Pulse Resp BP Pulse Ox 98.4 F 67 20 164/79 H 97 11/19/16 15:46 11/19/16 15:46 11/19/16 15:46 11/19/16 18:35 11/19/16 15:46 Intake and Output: 11/19/16 11/20/16 18:59 06:59 Intake Total 820 Balance 820 - Labs Labs: 11/19/16 08:15 11/19/16 08:15 PT 13.6 SECONDS (9.7-12.2) H 11/14/16 14:33 INR 1.2 11/14/16 14:33 APTT 32 SECONDS (21-34) 11/14/16 14:33 - Constitutional Appears: Non-toxic - Head Exam Head Exam: ATRAUMATIC - Eye Exam Eye Exam: EOMI - ENT Exam ENT Exam: Mucous Membranes Moist - Neck Exam Neck Exam: absent: Lymphadenopathy, Thyromegaly - Respiratory Exam Respiratory Exam: Clear to Ausculation Bilateral. absent: Rales - Cardiovascular Exam Cardiovascular Exam: REGULAR RHYTHM, Murmur - GI/Abdominal Exam GI & Abdominal Exam: Normal Bowel Sounds. absent: Organomegaly - Rectal Exam Rectal Exam: Deferred - Extremities Exam Extremities Exam: Normal Capillary Refill. 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
--- NOTE | 2016-11-20 16:00 | CP.PCM.DIS ---
Provider - Provider Date of Admission: 11/14/16 16:52 Attending physician: Arabella Cobian DO Primary care physician: Dr. Elkins Consults: Dr. Troy Farrell Time Spent in preparation of Discharge (in minutes): 40 Diagnosis - Discharge Diagnosis (1) CHF (congestive heart failure), NYHA class III Status: Acute Comment: Patient with acute over chronic diastolic CHF. Patient to continue lasix twice a day. Recommend outpatient stress test. (2) CKD (chronic kidney disease) Status: Acute Comment: Patient will need to continue follow up of renal function with her outpatient pathology laboratory technologist Dr. Shoemaker on discharge. Hospital Course - Lab Results Lab Results: Most Recent Lab Values WBC 9.7 K/uL (4.8-10.8) 11/19/16 08:15 RBC 3.56 Mil/uL (3.80-5.20) L 11/19/16 08:15 Hgb 10.1 g/dL (11.0-16.0) L 11/19/16 08:15 Hct 31.0 % (34.0-47.0) L 11/19/16 08:15 MCV 87.1 fL (81.0-99.0) 11/19/16 08:15 MCH 28.3 pg (27.0-31.0) 11/19/16 08:15 MCHC 32.5 g/dL (33.0-37.0) L 11/19/16 08:15 RDW 13.7 % (11.5-14.5) 11/19/16 08:15 Plt Count 280 K/uL (130-400) 11/19/16 08:15 MPV 8.1 fL (7.2-11.7) 11/19/16 08:15 Neut % (Auto) 47.7 % (50.0-75.0) L 11/19/16 08:15 Lymph % (Auto) 39.7 % (20.0-40.0) 11/19/16 08:15 [place] % (Auto) 7.6 % (0.0-10.0) 11/19/16 08:15 Eos % (Auto) 3.8 % (0.0-4.0) 11/19/16 08:15 Baso % (Auto) 1.2 % (0.0-2.0) 11/19/16 08:15 Neut # 4.6 K/uL (1.8-7.0) 11/19/16 08:15 Lymph # 3.8 K/uL (1.0-4.3) 11/19/16 08:15 [place] # 0.7 K/uL (0.0-0.8) 11/19/16 08:15 Eos # 0.4 K/uL (0.0-0.7) 11/19/16 08:15 Baso # 0.1 K/uL (0.0-0.2) 11/19/16 08:15 PT 13.6 SECONDS (9.7-12.2) H 11/14/16 14:33 INR 1.2 11/14/16 14:33 APTT 32 SECONDS (21-34) 11/14/16 14:33 pO2 46 mm/Hg (30-55) 11/14/16 19:45 VBG pH 7.29 (7.32-7.43) L 11/14/16 19:45 VBG pCO2 45 mmHg (40-60) 11/14/16 19:45 VBG HCO3 20.4 mmol/L 11/14/16 19:45 VBG Total CO2 23.0 mmol/L (22-28) 11/14/16 19:45 VBG O2 Sat (Calc) 85.1 % (40-65) H 11/14/16 19:45 VBG Base Excess -5.0 mmol/L (0.0-2.0) L 11/14/16 19:45 VBG Potassium 5.3 mmol/L (3.6-5.2) H 11/14/16 19:45 Sodium 139.0 mmol/l (132-148) 11/14/16 19:45 Chloride 111.0 mmol/L (98-107) H 11/14/16 19:45 Glucose 112 mg/dl (65-105) H 11/14/16 19:45 Lactate 1.3 mmol/L (0.7-2.1) 11/14/16 19:45 Sodium 137 mmol/L (132-148) 11/19/16 08:15 Potassium 4.9 mmol/L (3.6-5.2) 11/19/16 08:15 Chloride 107 mmol/L (98-107) 11/19/16 08:15 Carbon Dioxide 16 mmol/L (22-30) L 11/19/16 08:15 Anion Gap 19 (10-20) 11/19/16 08:15 BUN 49 mg/dL (7-17) H 11/19/16 08:15 Creatinine 4.0 MG/DL (0.7-1.2) H 11/19/16 08:15 Est GFR ( Amer) 14 11/19/16 08:15 Est GFR (Non-Af Amer) 11 11/19/16 08:15 POC Glucose (mg/dL) 228 mg/dL (65-110) H 11/19/16 16:18 Random Glucose 112 mg/dL (65-105) H 11/19/16 08:15 Hemoglobin A1c 6.8 % (4.2-6.5) H 11/14/16 14:33 Calcium 9.1 mg/dl (8.6-10.4) 11/19/16 08:15 Phosphorus 5.2 mg/dL (2.5-4.5) H 11/16/16 07:11 Total Bilirubin 0.5 mg/dL (0.2-1.3) 11/19/16 08:15 AST 21 U/L (14-36) 11/19/16 08:15 ALT 18 U/L (9-52) 11/19/16 08:15 Alkaline Phosphatase 208 U/L (38-126) H 11/19/16 08:15 Total Creatine Kinase 108 U/L (30-135) 11/15/16 03:46 CK-MB (Mass) 2.26 ng/mL (0.0-3.38) 11/15/16 03:46 Troponin I < 0.0120 ng/mL (0.00-0.120) 11/14/16 14:33 Troponin I, Quant < 0.0120 ng/mL (0.00-0.120) 11/15/16 03:46 Total Protein 8.2 g/dL (6.3-8.3) 11/19/16 08:15 Albumin 4.0 g/dL (3.5-5.0) 11/19/16 08:15 Globulin 4.2 gm/dL (2.2-3.9) H 11/19/16 08:15 Albumin/Globulin Ratio 1.0 (1.0-2.1) 11/19/16 08:15 Triglycerides 179 mg/dL (0-149) H D 11/14/16 14:33 Cholesterol 145 mg/dL (0-199) 11/14/16 14:33 LDL Cholesterol Direct 72 mg/dL (0-129) 11/14/16 14:33 HDL Cholesterol 22 mg/dL (30-70) L 11/14/16 14:33 25-OH Vitamin D Total < 12.8 NG/ML (30.0-100.0) L 11/16/16 07:11 Procalcitonin 0.12 NG/ML (0.19-0.49) L 11/14/16 19:48 Free T4 1.43 ng/dL (0.78-2.19) 11/15/16 11:56 Thyroxine (T4) 7.29 ug/dL (5.5-11.0) 11/15/16 08:41 TSH 3rd Generation < 0.02 mIU/L (0.46-4.68) L 11/15/16 08:41 PTH Intact Whole Molec 243 pg/mL (14-64) H 11/16/16 07:11 Cortisol AM Sample 8.1 ug/dL (4.46-22.7) 11/15/16 08:41 Venous Blood Potassium 5.3 mmol/L (3.6-5.2) H 11/14/16 19:45 Urine Color Straw (YELLOW) 11/14/16 17:06 Urine Clarity Clear (Clear) 11/14/16 17:06 Urine pH 5.0 (5.0-8.0) 11/14/16 17:06 Ur Specific [place] 1.012 (1.003-1.030) 11/14/16 17:06 Urine Protein 2+ mg/dL (NEGATIVE) H 11/14/16 17:06 Urine Glucose (UA) Normal mg/dL (Normal) 11/14/16 17:06 Urine Ketones Negative mg/dL (NEGATIVE) 11/14/16 17:06 Urine Blood Negative (NEGATIVE) 11/14/16 17:06 Urine Nitrate Negative (NEGATIVE) 11/14/16 17:06 Urine Bilirubin Negative (NEGATIVE) 11/14/16 17:06 Urine Urobilinogen Normal mg/dL (0.2-1.0) 11/14/16 17:06 Ur Leukocyte Esterase Neg Myles/uL (Negative) 11/14/16 17:06 Urine WBC (Auto) 1 /hpf (0-5) 11/14/16 17:06 Urine RBC (Auto) 1 /hpf (0-3) 11/14/16 17:06 Ur Squamous Epith Cells 2 /hpf (0-5) 11/14/16 17:06 - Hospital Course Hospital Course: On Admission: Patient is a 60 year old female with past medical history significant for HTN, diabetes, GERD and rheumatoid arthritis who presents to the ED after being sent by her senior clinical sas programmer for lower extremity edema and erythema. Patient states she saw her senior clinical sas programmer, Dr. Wright, yesterday and was told she should be evaluated in the ED. Patient states she did not come to the ED right away because she had an ophthalmology appointment for her recent glaucoma and cataract surgery. Patient states she first started to have lower extremity swelling a month ago while in [place] for her brother's . Patient states the erythema has only been present for a few days. Patient also complains of pain in right foot that has been present since a fall at home two months ago. Patient states she had an outpatient xray in September that showed a fracture in her heel. Patient also complains of dizziness since a frozen chicken fell out of her freezer onto her head in September. Patient denies loss of consciousness since during that event, however she states she has lost consciousness at home several times since. Patient states she was told by her doctor that this may be due to either low blood pressure or hypoglycemia. Patient complains of shortness of breath with walking short distances- from bedroom to bathroom, chest pain when she feels emotional over her brother recent passing, back pain which is chronic from her rheumatoid arthritis, as well as muscle spasms. During Hospitalization: Patient initially presented with blood glucose of 40. Patient's blood glucose was closely monitored while inpatient. Patient had lower extremity doppler to rule out DVT: negative b/l foot xray: soft tissue swelling without acute articular or osseous abnormality Echo- normal LVEF, moderate pulmonary HTN @ 47mmHg, diastolic HF Renal ultrasound- small amount of perinephric fluid adjacent to lower pole left kidney, increased echogenicity bilateral renal cortices suggestive for medical renal disease Patient was seen by ob/gyn nurse Dr. Simmons who recommended outpatient exercise stress test Patient was seen by pathology laboratory technologist Dr. Morillo who recommended better blood pressure control, increased bystolic, increased lasix, added sodium bicarb Patient was seen by psychiatrist Dr. Farrell who started patient on trazodone Patient was seen by podiatry- stable from their standpoint, patient to follow up with Dr. Wright as outpatient Patient was evaluated by physical therapy with recommendation for continued therapy, TCU. On Discharge: Patient stable for discharge to rehab ([facility]) when bed available per Dr. Cobian. Patient will need to follow up with her PMD Dr. Elkins within one week. Patient will need to follow up with her senior clinical sas programmer on discharge. Patient will also need to follow up with her pathology laboratory technologist Dr. Valdes. Patient is being given the following new medications: Phoslo 667mg PO twice a day, keflex 500mg twice a day for 10 days, trazodone 50mg at bedtime, amitriptyline 25mg daily, lasix 40mg BID, gabapentin 100mg three times a day, bystolic 20mg daily, flexeril 5mg three times a day, sodium bicarb 650 BID. Patient should resume her eye drops, metoprolol, nifedipine, prednisone, nexium. Patient should return to the ED if her symptoms reoccur or worsen. This was explained to the patient who understands and agrees. Discharge Exam - Head Exam Head Exam: ATRAUMATIC - Eye Exam Eye Exam: EOMI - ENT Exam ENT Exam: Mucous Membranes Moist - Respiratory Exam Respiratory Exam: NORMAL BREATHING PATTERN - Cardiovascular Exam Cardiovascular Exam: +S1, +S2 - GI/Abdominal Exam GI & Abdominal Exam: Normal Bowel Sounds, Soft. absent: Tenderness - Extremities Exam Extremities exam: pedal edema (1+ bilaterally) - Neurological Exam Neurological exam: Alert, Oriented x3 - Psychiatric Exam Psychiatric exam: Anxious - Skin Skin Exam: Warm Discharge Plan - Discharge Medications Prescriptions: Amitriptyline [Elavil] 25 mg PO DAILY #30 tab Calcium Acetate [Phoslo] 667 mg PO BIDCC 30 Days Cephalexin [Keflex] 500 mg PO Q12H 10 Days Cyclobenzaprine [Flexeril] 5 mg PO TID 30 Days Furosemide [Lasix] 60 mg PO DAILY #30 tab Gabapentin [Neurontin] 100 mg PO TID 30 Days Nebivolol [Bystolic] 15 mg PO DAILY #30 tab traZODone [Desyrel] 50 mg PO HS #30 tab - Follow Up Plan Condition: GOOD Disposition: REHAB FACILITY/REHAB UNIT Instructions: Cephalexin (By mouth), Furosemide (By mouth), Amitriptyline (By mouth), Trazodone (By mouth), Gabapentin (By mouth), Calcium Acetate (By mouth) , Acute Kidney Injury (DC), Heart Healthy Diet (DC), Fall Prevention for Older Adults (GEN), Hypertension (DC), Anemia (DC), Fall Prevention (DC) Additional Instructions: Patient stable for discharge to rehab ([facility]) when bed available per Dr. Cobian. Patient will need to follow up with her PMD Dr. Elkins within one week. Patient will need to follow up with her senior clinical sas programmer on discharge. Patient will also need to follow up with her pathology laboratory technologist Dr. Valdes. Patient is being given the following new medications: Phoslo 667mg PO twice a day, keflex 500mg twice a day for 10 days, trazodone 50mg at bedtime, amitriptyline 25mg daily, lasix 40mg BID, gabapentin 100mg three times a day, bystolic 20mg daily, flexeril 5mg three times a day, sodium bicarb 650 BID. Patient should resume her eye drops, metoprolol, nifedipine, prednisone, nexium. Patient should return to the ED if her symptoms reoccur or worsen. This was explained to the patient who understands and agrees. Referrals: Kari Elkins MD [Staff Provider] - Arabella Valdes MD [Medical Doctor] - Clinical Quality Measures - CQM - Heart Failure Ejection Fraction: 40 % or Greater Left Ventricular Function to be assessed after discharge: No JOAQUIN Inhibitor Prescribed: No Contraindication/Reason for not providing: CKD Beta-Alessandro Prescribed: Bisoprolol Angiotensin II Receptor Alessandro Prescribed: No Contraindication/Reason for not providing: CKD AnticoagulationTherapy for Atrial Fibrillation/Atrialflutter: No Contraindication/Reason for not providing: not indicated- no afib/ aflutter Aldosterone Antagonist Prescribed: No Contraindication/Reason for not providing: Patient on lasix Hydralazine Nitrate Prescribed: No Contraindication/Reason for not providing: not indicated Implantable Cardioverter Defibrillator Therapy: No Contraindication/Reason for not providing: not indicated Cardiac Resynchronization Therapy Prescribed: No Contraindication/Reason for not providing: not indicated Will be discharged to: [facility]
== END 2016-11-19 19:40 | DRG 871 ==
LOC: C.ER 12:44 → C.9E 16:52 → C.6T 17:17
PROVIDERS: ADMIT Hospitalist; ATTEND Hospitalist
DX: A41.9 Sepsis, unspecified organism (principal); I50.33 Acute on chronic diastolic (congestive) heart failure; N17.9 Acute kidney failure, unspecified; N18.4 Chronic kidney disease, stage 4 (severe); E11.22 Type 2 diabetes mellitus with diabetic chronic kidney disease; L03.115 Cellulitis of right lower limb; L03.116 Cellulitis of left lower limb; I13.0 Hypertensive heart and chronic kidney disease with heart failure and stage 1 through stage 4 chronic kidney disease, or unspecified chronic kidney disease; E11.628 Type 2 diabetes mellitus with other skin complications; R65.20 Severe sepsis without septic shock; Z79.4 Long term (current) use of insulin; E11.649 Type 2 diabetes mellitus with hypoglycemia without coma; E11.42 Type 2 diabetes mellitus with diabetic polyneuropathy; K21.9 Gastro-esophageal reflux disease without esophagitis; K59.00 Constipation, unspecified; I87.8 Other specified disorders of veins; M06.9 Rheumatoid arthritis, unspecified; M62.838 Other muscle spasm; F17.210 Nicotine dependence, cigarettes, uncomplicated; F32.9 Major depressive disorder, single episode, unspecified; F41.9 Anxiety disorder, unspecified; Z88.0 Allergy status to penicillin; E66.9 Obesity, unspecified; Z68.36 Body mass index [BMI] 36.0-36.9, adult

== ENCOUNTER 2016-11-27 21:04 | Inpatient (IN) | payer MEDICARE ==
[2016-11-27 22:00] LABS: BASO # 0.1 K/uL (0.0-0.2); BASO % 0.9 % (0.0-2.0); EOS # 0.3 K/uL (0.0-0.7); EOS % 3.9 % (0.0-4.0); HEMATOCRIT 29.3 % (34.0-47.0); LYMPH # 2.1 K/uL (1.0-4.3); LYMPH % 32.3 % (20.0-40.0); MEAN CORPUSCULAR HEMOGLOBIN 28.2 pg (27.0-31.0); MEAN CORPUSCULAR HGB CONC 32.4 g/dL (33.0-37.0); MEAN PLATELET VOLUME 8.1 fL (7.2-11.7); MONO # 0.7 K/uL (0.0-0.8); MONO % 10.3 % (0.0-10.0); RED CELL DISTRIBUTION WIDTH 13.3 % (11.5-14.5); WHITE BLOOD COUNT 6.5 K/uL (4.8-10.8)
[2016-11-27 22:13] LABS: INR 1.1
--- NOTE | 2016-11-27 22:14 | C.PDOC ---
History Of Present Illness 60 y/o female, history of non-insulin dependent diabetes, presents to ED with complaints of generalized pain, chest pain, bilateral foot pain, and not feeling well. Patient denies SOB or palpitations. Time Seen by Provider: 11/27/16 22:12 Chief Complaint (Nursing): Chest Pain History Per: Patient History/Exam Limitations: no limitations Onset/Duration Of Symptoms: Days Current Symptoms Are (Timing): Still Present Severity: Mild Pain Scale Rating Of: 4 Associated Symptoms: denies: Nausea, Dyspnea Recent travel outside of the [place]: No Past Medical History Reviewed: Historical Data, Nursing Documentation, Vital Signs Vital Signs: Last Vital Signs Temp 98.1 F 11/27/16 21:08 Pulse 71 11/28/16 01:10 Resp 14 11/28/16 01:10 BP 122/47 L 11/28/16 01:10 Pulse Ox 99 11/28/16 01:10 - Medical History PMH: Anxiety, Arthritis, CHF, Depression, Diabetes (NON-INSULIN), GERD, HTN, Rheumatoid Arthritis Surgical History: Cholecystectomy - [facility] Procedures DESTRUCT-KNEE LESION NEC (05/12/97) ESOPHAGOGASTRODUODENOSCOPY [EGD] W/CLOSED BIOPSY (12/30/12) EXCIS KNEE SEMILUN CARTL (11/09/97) KNEE ARTHROSCOPY (11/09/97) KNEE SYNOVECTOMY (11/09/97) OTHER REPAIR OF KNEE (11/09/97) PERIRECTAL INCISION (12/30/12) SPINAL CANAL INJECT NEC (05/12/97) Family History: States: Unknown Family Hx - Social History Hx Tobacco Use: Yes Hx Alcohol Use: No Hx Substance Use: No - Immunization History Hx Tetanus Toxoid Vaccination: No Hx Influenza Vaccination: No Hx Pneumococcal Vaccination: Yes Review Of Systems Constitutional: Positive for: Malaise Cardiovascular: Positive for: Chest Pain Respiratory: Negative for: Cough, Shortness of Breath Gastrointestinal: Negative for: Nausea, Vomiting Musculoskeletal: Positive for: Foot Pain (bilateral) Skin: Negative for: Rash Physical Exam - Physical Exam Appears: Non-toxic, Other (awake, alert, oriented) Skin: Warm, Dry Head: Atraumatic, Normacephalic Eye(s): bilateral: Normal Inspection, PERRL, EOMI, Other (arcus sinilus) Oral Mucosa: Dry Chest: Symmetrical Cardiovascular: Rhythm Regular, No Murmur Respiratory: Normal Breath Sounds, No Accessory Muscle Use, No Rales, No Rhonchi , No Wheezing Gastrointestinal/Abdominal: Soft, Distention, No Guarding, No Rebound, Other ( tympanic to percussion) Back: No CVA Tenderness Extremity: Pedal Edema (trace, bilateral), Capillary Refill (< 2 esc. ), Other ( bilateral dorsum of feet edematous, with some paresthesias ) Extremity: Bilateral: Painful To Bear Weight Neurological/Psych: Oriented x3, Normal Speech, Normal Cognition Gait: With Assistance ED Course And Treatment - Laboratory Results Result Diagrams: 11/27/16 21:57 11/27/16 21:57 ECG: Interpreted By Me, Viewed By Me ECG Rhythm: Sinus Rhythm (77), Nonspecific Changes O2 Sat by Pulse Oximetry: 99 (RA) Pulse Ox Interpretation: Normal Disposition Discussed With DrAleida: Chaz Santos Comment: accepted the pt on his service and took over the care at 2AM Doctor Will See Patient In The: ED Counseled Patient/Family Regarding: Studies Performed, Diagnosis - Disposition Disposition: HOSPITALIZED Disposition Time: 22:00 Condition: FAIR - POA Present On Arrival: Falls Or Trauma, Poor Glycemic Control, Pressure Ulcer - Clinical Impression Clinical Impression: Chest pain, Type 2 diabetes mellitus with diabetic chronic kidney disease, Acute on chronic renal failure, Frequent falls - Scribe Statement The provider has reviewed the documentation as recorded by the Thomas Simmons Provider Attestation: All medical record entries made by the Hoodibbhavesh were at my direction and personally dictated by me. I have reviewed the chart and agree that the record accurately reflects my personal performance of the history, physical exam, medical decision making, and the department course for this patient. I have also personally directed, reviewed, and agree with the discharge instructions and disposition. Decision To Admit - Pt Status Changed To: Hospital Disposition Of: Inpatient - Admit Certification Admit to Inpatient:: After my assessment, the patient will require hospitalization for at least two midnights. This is because of the severity of symptoms shown, intensity of services needed, and/or the medical risk in this patient being treated as an outpatient. - InPatient: Physician Admission Certification: I certify that this patient requires 2 or more midnights of care for the following reason:: After my assessment, the patient will require hospitalization for at least two midnights. This is because of the severity of symptoms shown, intensity of services needed, and/or the medical risk in this patient being treated as an outpatient. - . Bed Request Type: Telemetry Admitting Physician: Chaz Santos Patient Diagnosis: Chest pain, Type 2 diabetes mellitus with diabetic chronic kidney disease, Acute on chronic renal failure, Frequent falls
[2016-11-27] MEDS ORDERED: Enoxaparin 40 mg Syringe SC STA (22:26)
[2016-11-27 22:30] LABS: CHLORIDE 101 mmol/L (98-107); SODIUM 136 mmol/L (132-148)
[2016-11-27 22:32] LABS: BILIRUBIN,TOTAL 0.5 mg/dL (0.2-1.3); GFR AFRICAN-AMERICAN 10
[2016-11-27 22:33] LABS: ALB/GLOB RATIO 0.9 (1.0-2.1); ALKALINE PHOSPHATASE 200 U/L (38-126); ALT/SGPT 28 U/L (9-52); AST/SGOT 30 U/L (14-36); BLOOD UREA NITROGEN 72 mg/dL (7-17); CARBON DIOXIDE 22 mmol/L (22-30); GLUCOSE,RANDOM 186 mg/dL (65-105); TOTAL PROTEIN 7.5 g/dL (6.3-8.3)
[2016-11-27 22:34] LABS: CALCIUM 9.1 mg/dl (8.6-10.4)
[2016-11-27] MEDS ORDERED: Enoxaparin 60 mg Syringe ONE (22:35)
[2016-11-27] MEDS ORDERED: Enoxaparin 40 mg Syringe ONE (22:35)
[2016-11-28] MEDS ORDERED: Heparin25000 units/250ml 1/2NS 25,000 UNITS/250 ML BAG IV PRN (02:56)
--- NOTE | 2016-11-28 03:05 | CP.PCM.HP ---
<Ness Doss - Last Filed: 11/28/16 03:11> History of Present Illness - History of Present Illness History of Present Illness: CC - "Pain in legs, back and chest" HPI - Patient is a 60 year old female with past medical history significant for HTN, diabetes,CHF, CKD, GERD and rheumatoid arthritis who presents today stating that she has pain in her left leg/foot, back, and chest. She reports that this chest pain started yesterday in the morning and is midsternal. She can 't remember what she was doing when the pain started. She reports that it is worse when she takes a deep breath. She did not take any medications to help the pain. She states the pain comes and goes but is unsure about this fact and can't quantify how long this pain lasts when she has it. She denies radiation of the pain diaphoresis, N/V. She was recently hospitalized here and November and states she followed up with her PMD but not cardiology or nephrology as instructed. She denies fever/chills or shortness of breath. She states is ambulates with a cane/walker. She reports that she knows her kidneys are not functioning well and that she does seems to be making less urine than normal. She is urinating twice a day. She denies dysuria. She states she doesn't feel well/normal. PMD: Brittni PMHx: HTN, DM, RA, muscle spasms, CKD, CHF Meds: unsure about and med rec not [facility], will need to call Dr. Elkins to confirm medications, patient does not remember Allergies: codeine, iodine, pen, sulfa, vanc, seafood PSHx: eye surgery recently for glaucoma and cataracts, knee surgery FamHx: mother in MVA, multiple family members with cardiac disease, brother recently of unknown cause, pt states possibly cardiac related Social Hx: former 1ppd smoker for 40 years- quit 2 weeks ago, denies alcohol, drugs; lives with daughter Present on Admission - Present on Admission Any Indicators Present on Admission: No Review of Systems - Constitutional Constitutional: absent: Chills, Fever - EENT Eyes: absent: Blurred Vision, Change in Vision - Cardiovascular Cardiovascular: Chest Pain, Chest Pain at Rest, Pedal Edema. absent: Palpitations, Syncope - Respiratory Respiratory: absent: Cough, Dyspnea, Dyspnea on Exertion - Gastrointestinal Gastrointestinal: absent: Abdominal Pain, Constipation, Diarrhea, Nausea, Vomiting - Genitourinary Genitourinary: Voiding Freq/Small Amts. absent: Dysuria, Hematuria - Musculoskeletal Musculoskeletal: Muscle Cramps, Muscle Weakness, Stiffness Additional comments: Lower chronic back pain, pain in left foot Past Patient History - Past Medical History & Family History Past Medical History?: Yes - Past Social History Smoking Status: Light Smoker < 10 Cigarettes Daily - CARDIAC Hx Congestive Heart Failure: Yes Hx Hypertension: Yes - HEENT Hx Cataracts: Yes Hx Glaucoma: Yes - RENAL Other/Comment: Hx of Chronic Kidney Disease - ENDOCRINE/METABOLIC Hx Endocrine Disorders: Yes Hx Diabetes Mellitus Type 2: Yes - MUSCULOSKELETAL/RHEUMATOLOGICAL Hx Arthritis: Yes Hx Rheumatoid Arthritis: Yes - PSYCHIATRIC Hx Anxiety: Yes Hx Depression: Yes Hx Substance Use: No - SURGICAL HISTORY Hx Cholecystectomy: Yes - ANESTHESIA Hx Anesthesia: Yes Hx Anesthesia Reactions: No Meds Allergies/Adverse Reactions: Allergies Allergy/AdvReac Type Severity Reaction Status Date / Time codeine Allergy ITCHING Verified 11/27/16 21:38 Iodine and Iodide Containing Allergy ITCHING Verified 11/27/16 21:38 Produc Penicillins Allergy RASH Verified 11/27/16 21:38 Sulfa (Sulfonamide Allergy RASH Verified 11/27/16 21:38 Antibiotics) vancomycin Allergy RASH Verified 11/27/16 21:38 seafood Allergy RASH Uncoded 11/27/16 21:38 Physical Exam - Constitutional Appears: Non-toxic, No Acute Distress, Chronically Ill - Head Exam Head Exam: ATRAUMATIC, NORMAL INSPECTION - Eye Exam Eye Exam: EOMI, Normal appearance, PERRL Pupil Exam: NORMAL ACCOMODATION - ENT Exam ENT Exam: Mucous Membranes Moist - Respiratory Exam Respiratory Exam: Clear to Auscultation Bilateral, Rales, NORMAL BREATHING PATTERN. absent: Respiratory Distress - Cardiovascular Exam Cardiovascular Exam: REGULAR RHYTHM, +S1, +S2, Systolic Murmur - GI/Abdominal Exam GI & Abdominal Exam: Normal Bowel Sounds, Soft. absent: Distended, Firm, Guarding, Tenderness - Extremities Exam Extremities exam: Positive for: normal inspection, pedal edema. Negative for: calf tenderness - Back Exam Back exam: NORMAL INSPECTION. absent: CVA tenderness (L), CVA tenderness (R), paraspinal tenderness - Neurological Exam Neurological exam: Alert, Oriented x3 - Psychiatric Exam Psychiatric exam: Flat Affect, Normal Affect, Normal Mood - Skin Skin Exam: Dry, Intact, Normal Color, Warm Results - Vital Signs Recent Vital Signs: Last Vital Signs Temp 98.1 F 11/27/16 21:08 Pulse 71 11/28/16 01:10 Resp 14 11/28/16 01:10 BP 122/47 L 11/28/16 01:10 Pulse Ox 99 11/28/16 02:02 - Labs Result Diagrams: 11/27/16 21:57 11/27/16 21:57 Assessment & Plan - Assessment and Plan (Free Text) Assessment: JESSICA on CKD Cr 5.5, on last admission was 4 pt reports making less urine Nephrology consult- Dr. Morillo- help appreciated Renal ultrasound on last admission- small amount of perinephric fluid adjacent to lower pole left kidney, increased echogenicity bilateral renal cortices suggestive for medical renal disease sodium bicarb 650mg PO BID avoid nephrotoxins Elevated DDIMER Given one dose of lovenox in the ED due to renal function will start heparin drip f/u venous dopplers VQ scan to rule out PE Chest pain Hx - CHF, not on appropriate meds but will need to verity with PMD EKG no acute changes Troponin negative x 1, will trend f/u chest Xray Echo 11/14/16- normal LVEF, moderate pulmonary HTN @ 47mmHg, diastolic HF Cardiology consulted, Dr. Cronin , help appreciated Morphine 2mg IVP prn pain HTN bystolic 20mg daily BP controlled will confirm meds with PMD monitor on tele Diabetes accuchecks ISS mod consistent carb diet Rheumatoid arthritis was on prednisone at home daily Depression Pt emotionally labile Prophylactic measure heparin drip protonix 40mg daily *Home meds on hold until verifies with Dr. Elkins <Chaz Santos - Last Filed: 11/28/16 06:23> Results - Vital Signs Recent Vital Signs: Last Vital Signs Temp 98.1 F 11/27/16 21:08 Pulse 74 11/28/16 03:10 Resp 14 11/28/16 03:10 BP 146/61 11/28/16 03:10 Pulse Ox 97 11/28/16 03:10 - Labs Result Diagrams: 11/27/16 21:57 11/27/16 21:57 Assessment & Plan - Date & Time Date: 11/28/16 (I have seen and examined the patient. I agree with the findings and plan of care as documented by Dr Doss. Patient with acute on chronic kidney failure. Consult to nephro. IVF. Strict I&O's. Monitor renal function. Chest pain - aspirin and statin. ROMIx3 with EKG. Consult cardio. Also with elevated d-dimer. ED gave therapeutic lovenox. Switch to heparin due to renal function. Check VQ scan. Unable to check CT angio due to renal function. Monitor for acute changes.) Time: 06:20 Attending/Attestation - Attestation I have personally seen and examined this patient.: Yes I have fully participated in the care of the patient.: Yes I have reviewed all pertinent clinical information: Yes
[2016-11-28] MEDS: Sodium Chloride 0.9% 1,000 ML IV SCH ×3 (04:40→22:00)
[2016-11-28] MEDS: (Novolin R) Insulin Human Regular 100 units/ml vial SC SCH ×2 (07:30→11:30)
[2016-11-28 07:44] LABS: BASO % 0.3 % (0.0-2.0); EOS # 0.2 K/uL (0.0-0.7); EOS % 3.7 % (0.0-4.0); HEMATOCRIT 27.7 % (34.0-47.0); LYMPH % 34.4 % (20.0-40.0); MEAN CELL VOLUME 87.2 fL (81.0-99.0); MEAN CORPUSCULAR HEMOGLOBIN 28.4 pg (27.0-31.0); MEAN CORPUSCULAR HGB CONC 32.6 g/dL (33.0-37.0); MEAN PLATELET VOLUME 8.5 fL (7.2-11.7); MONO # 0.6 K/uL (0.0-0.8); MONO % 10.9 % (0.0-10.0); RED CELL DISTRIBUTION WIDTH 13.5 % (11.5-14.5); WHITE BLOOD COUNT 5.9 K/uL (4.8-10.8)
[2016-11-28 08:01] LABS: CHLORIDE 104 mmol/L (98-107); POTASSIUM 4.6 mmol/L (3.6-5.2); SODIUM 137 mmol/L (132-148)
[2016-11-28 08:03] LABS: ALB/GLOB RATIO 0.9 (1.0-2.1); ALKALINE PHOSPHATASE 193 U/L (38-126); ALT/SGPT 33 U/L (9-52); AST/SGOT 31 U/L (14-36); BILIRUBIN,TOTAL 0.5 mg/dL (0.2-1.3); BLOOD UREA NITROGEN 70 mg/dL (7-17); CARBON DIOXIDE 23 mmol/L (22-30); GFR AFRICAN-AMERICAN 10; TOTAL PROTEIN 6.9 g/dL (6.3-8.3)
[2016-11-28 08:04] LABS: CALCIUM 8.8 mg/dl (8.6-10.4); GLUCOSE,RANDOM 156 mg/dL (65-105); MAGNESIUM 2.3 mg/dL (1.6-2.3); PHOSPHOROUS 5.8 mg/dL (2.5-4.5)
[2016-11-28] MEDS ORDERED: NIFEDIPINE 60 MG PO SCH (10:00)
--- NOTE | 2016-11-28 11:05 | RAD ---
HISTORY: r/o congestion COMPARISON: No prior. FINDINGS: LUNGS: Moderate to severe venous congestion with prominent airspace consolidative changes at the left lung base. Moderate left pleural effusion. PLEURA: As above. CARDIOVASCULAR: Cardiomegaly. OSSEOUS STRUCTURES: Degenerative changes in the spine and shoulders. VISUALIZED UPPER ABDOMEN: Normal. OTHER FINDINGS: None. IMPRESSION: Moderate to severe venous congestion with prominent airspace consolidative changes at the left lung base. Moderate left pleural effusion.
--- NOTE | 2016-11-28 11:15 | CARD ---
APPROVED REPORT EKG Measurement Heart [id number] <Conclusion> Normal sinus rhythm Normal ECG
[2016-11-28] MEDS: Pantoprazole 40 mg EC Tab PO SCH (13:34)
[2016-11-28] MEDS ORDERED: Naloxone 0.4 mg/ml Inj (Adult) IVP ONE (14:42)
[2016-11-28] MEDS ORDERED: Dextrose 5%/0.45% NS 1,000 ML IV SCH (14:45)
--- NOTE | 2016-11-28 16:04 | CP.PCM.CON ---
History of Present Illness - History of Present Illness History of Present Illness: HPI - Patient is a 60 year old female with past medical history significant for HTN, diabetes,CHF, CKD4, GERD and rheumatoid arthritis who presents today stating that she has pain in her left leg/foot, back, and chest. She reports that this chest pain started yesterday in the morning and is midsternal. She can 't remember what she was doing when the pain started. She reports that it is worse when she takes a deep breath. She did not take any medications to help the pain. She states the pain comes and goes but is unsure about this fact and can't quantify how long this pain lasts when she has it. She denies radiation of the pain diaphoresis, N/V. She denies fever/chills or shortness of breath. She states is ambulates with a cane/walker. She reports that she knows her kidneys are not functioning well and that she does seems to be making less urine than normal. She is urinating twice a day. She denies dysuria. Followed and saw Dr Valdes last month. Pt has a longstanding hx of progressive ckd due to dm. PMD: Brittni PMHx: HTN, DM, RA, muscle spasms, CKD, CHF Meds: unsure about and med rec not [facility], will need to call Dr. Elkins to confirm medications, patient does not remember Allergies: codeine, iodine, pen, sulfa, vanc, seafood PSHx: eye surgery recently for glaucoma and cataracts, knee surgery FamHx: mother in MVA, multiple family members with cardiac disease, brother recently of unknown cause, pt states possibly cardiac related Social Hx: former 1ppd smoker for 40 years- quit 2 weeks ago, denies alcohol, drugs; lives with daughter Review of Systems - Review of Systems All systems: reviewed and no additional remarkable complaints except (tearful anxious) Review of Systems: c/o chest pain headache neck tightness nausea no vomiting/diarrhea leg pain Past Patient History - Past Medical History & Family History Past Medical History?: Yes - Past Social History Smoking Status: Former Smoker - CARDIAC Hx Congestive Heart Failure: Yes Hx Hypertension: Yes - HEENT Hx Cataracts: Yes Hx Glaucoma: Yes - RENAL Other/Comment: Hx of Chronic Kidney Disease - ENDOCRINE/METABOLIC Hx Endocrine Disorders: Yes Hx Diabetes Mellitus Type 2: Yes - MUSCULOSKELETAL/RHEUMATOLOGICAL Hx Falls: Yes - PSYCHIATRIC Hx Substance Use: No - SURGICAL HISTORY Hx Cholecystectomy: Yes - ANESTHESIA Hx Anesthesia: Yes Hx Anesthesia Reactions: No Meds Allergies/Adverse Reactions: Allergies Allergy/AdvReac Type Severity Reaction Status Date / Time codeine Allergy ITCHING Verified 11/27/16 21:38 Iodine and Iodide Containing Allergy ITCHING Verified 11/27/16 21:38 Produc Penicillins Allergy RASH Verified 11/27/16 21:38 Sulfa (Sulfonamide Allergy RASH Verified 11/27/16 21:38 Antibiotics) vancomycin Allergy RASH Verified 11/27/16 21:38 seafood Allergy RASH Uncoded 11/27/16 21:38 - Medications Medications: Current Medications [facility] Last Admin: 11/28/16 13:30 Dose: 667 mg Sodium Chloride (Sodium Chloride 0.9%) 1,000 mls @ 100 mls/hr IV .Q10H [facility] Last Admin: 11/28/16 12:45 Dose: 100 mls/hr Dextrose/Sodium Chloride (Dextrose 5%/0.45% Ns 1000 Ml) 1,000 mls @ 50 mls/hr IV .Q20H [facility] Insulin Human Regular (Novolin R) 0 unit SC ACHS [facility] PRN Reason: Protocol Last Admin: 11/28/16 11:30 Dose: Not Given Latanoprost (Xalatan Opht) 0 ml OU HS [facility] Nebivolol (Bystolic) 20 mg PO DAILY [facility] Pantoprazole Sodium (Protonix Ec Tab) 40 mg PO DAILY [facility] Last Admin: 11/28/16 13:34 Dose: 40 mg Sodium Bicarbonate (Sodium Bicarbonate Tab) 650 mg PO BID [facility] Last Admin: 11/28/16 13:30 Dose: 650 mg Physical Exam - Constitutional Appears: No Acute Distress, Chronically Ill Additional comments: tearful anxious - Head Exam Head Exam: NORMAL INSPECTION - Eye Exam Eye Exam: Normal appearance - ENT Exam ENT Exam: Mucous Membranes Moist, Normal Exam - Neck Exam Neck exam: Positive for: Normal Inspection - Respiratory Exam Respiratory Exam: Decreased Breath Sounds, Clear to Auscultation Bilateral, NORMAL BREATHING PATTERN - Cardiovascular Exam Cardiovascular Exam: REGULAR RHYTHM, RRR (no rub) - GI/Abdominal Exam GI & Abdominal Exam: Distended, Normal Bowel Sounds, Soft - Extremities Exam Extremities exam: Positive for: normal inspection Additional comments: no edema - Skin Skin Exam: Normal Color, Warm Results - Vital Signs Recent Vital Signs: Last Vital Signs Temp 98.5 F 11/28/16 08:00 Pulse 90 11/28/16 08:00 Resp 20 11/28/16 08:00 BP 168/81 H 11/28/16 08:00 Pulse Ox 100 11/28/16 08:00 - Labs Result Diagrams: 11/28/16 07:33 11/28/16 07:33 Labs: Laboratory Results - last 24 hr 11/28/16 11/28/16 11/28/16 06:26 07:33 07:33 WBC 5.9 RBC 3.18 L Hgb 9.0 L Hct 27.7 L MCV 87.2 MCH 28.4 MCHC 32.6 L RDW 13.5 Plt Count 189 MPV 8.5 Neut % (Auto) 50.7 Lymph % (Auto) 34.4 [place] % (Auto) 10.9 H Eos % (Auto) 3.7 Baso % (Auto) 0.3 Neut # 3.0 Lymph # 2.0 [place] # 0.6 Eos # 0.2 Baso # 0.0 APTT Sodium 137 Potassium 4.6 Chloride 104 Carbon Dioxide 23 Anion Gap 15 BUN 70 H Creatinine 5.3 H Est GFR ( Amer) 10 Est GFR (Non-Af Amer) 8 POC Glucose (mg/dL) 179 H Random Glucose 156 H Calcium 8.8 Phosphorus 5.8 H Magnesium 2.3 Total Bilirubin 0.5 AST 31 ALT 33 Alkaline Phosphatase 193 H Total Creatine Kinase 63 CK-MB (Mass) 1.16 Troponin I, Quant < 0.0120 Total Protein 6.9 Albumin 3.3 L Globulin 3.6 Albumin/Globulin Ratio 0.9 L 11/28/16 11/28/16 11:32 13:35 WBC RBC Hgb Hct MCV MCH MCHC RDW Plt Count MPV Neut % (Auto) Lymph % (Auto) [place] % (Auto) Eos % (Auto) Baso % (Auto) Neut # Lymph # [place] # Eos # Baso # APTT 87 H D Sodium Potassium Chloride Carbon Dioxide Anion Gap BUN Creatinine Est GFR ( Amer) Est GFR (Non-Af Amer) POC Glucose (mg/dL) 217 H Random Glucose Calcium Phosphorus Magnesium Total Bilirubin AST ALT Alkaline Phosphatase Total Creatine Kinase CK-MB (Mass) Troponin I, Quant Total Protein Albumin Globulin Albumin/Globulin Ratio Assessment & Plan (1) Chest pain Status: Acute (2) Acute on chronic renal failure Status: Chronic (3) Type 2 diabetes mellitus with diabetic chronic kidney disease Status: Chronic (4) Anemia Status: Acute (5) CKD (chronic kidney disease) Status: Acute (6) Hypertension Status: Acute - Assessment and Plan (Free Text) Assessment: - lan / progression of ckd - ckd 5 -dm nephropathy -htn -recent cellulitis. plan: agree w/ iv fluids check ua, urine culture check renal ultrasound check urine eos, although pt is off antibiotics at this time. Had a long discussion w/ patient, her daughter and Dr Valdes. REcommend hemodialysis if no improvement in renal function w/ iv fluids. Pt and family hesitant at this time. check phos / pth / iron stores.
--- NOTE | 2016-11-28 16:48 | CT ---
PROCEDURE: CT HEAD WITHOUT CONTRAST. HISTORY: headache r/o bleed COMPARISON: Comparison is made to the previous study dated 11/14/2016 TECHNIQUE: Axial computed tomography images were obtained through the head/brain without intravenous contrast. Radiation dose: Total exam DLP = 917.48 mGy-cm. This CT exam was performed using one or more of the following dose reduction techniques: Automated exposure control, adjustment of the mA and/or kV according to patient size, and/or use of iterative reconstruction technique. FINDINGS: HEMORRHAGE: No intracranial hemorrhage. BRAIN: No mass effect or edema. Mild atrophy and moderate chronic microvascular white matter ischemic disease are again seen. VENTRICLES: Unremarkable. No hydrocephalus. CALVARIUM: Unremarkable. PARANASAL SINUSES: Unremarkable as visualized. No significant inflammatory changes. MASTOID AIR CELLS: Unremarkable as visualized. No inflammatory changes. OTHER FINDINGS: None. IMPRESSION: Normal CT of the Head. No significant interval change since the previous exam noted. Mild atrophy disease.
--- NOTE | 2016-11-28 16:49 | NM ---
COMPARISON: Comparison is made to same day chest x-ray TECHNIQUE: 7.9 mCi technetium 99-m Xe-133 Gas. 3.9 mCI technetium 99-m MAA administered intravenously. FINDINGS: VENTILATION COMPONENT: Normal. PERFUSION COMPONENT: No evidence of mismatching segmental or subsegmental perfusion defect. IMPRESSION: Lowprobability ventilation perfusion scan for pulmonary embolism. Preliminary report was submitted by virtual Radiology.
--- NOTE | 2016-11-28 16:49 | CP.PCM.CON ---
History of Present Illness - History of Present Illness History of Present Illness: dictated Past Patient History - Past Medical History & Family History Past Medical History?: Yes - Past Social History Smoking Status: Former Smoker - CARDIAC Hx Congestive Heart Failure: Yes Hx Hypertension: Yes - HEENT Hx Cataracts: Yes Hx Glaucoma: Yes - RENAL Other/Comment: Hx of Chronic Kidney Disease - ENDOCRINE/METABOLIC Hx Endocrine Disorders: Yes Hx Diabetes Mellitus Type 2: Yes - MUSCULOSKELETAL/RHEUMATOLOGICAL Hx Falls: Yes - PSYCHIATRIC Hx Substance Use: No - SURGICAL HISTORY Hx Cholecystectomy: Yes - ANESTHESIA Hx Anesthesia: Yes Hx Anesthesia Reactions: No Meds Allergies/Adverse Reactions: Allergies Allergy/AdvReac Type Severity Reaction Status Date / Time codeine Allergy ITCHING Verified 11/27/16 21:38 Iodine and Iodide Containing Allergy ITCHING Verified 11/27/16 21:38 Produc Penicillins Allergy RASH Verified 11/27/16 21:38 Sulfa (Sulfonamide Allergy RASH Verified 11/27/16 21:38 Antibiotics) vancomycin Allergy RASH Verified 11/27/16 21:38 seafood Allergy RASH Uncoded 11/27/16 21:38 - Medications Medications: Current Medications Calcium Acetate (Phoslo) 667 mg PO BIDCC [facility] Last Admin: 11/28/16 13:30 Dose: 667 mg Sodium Chloride (Sodium Chloride 0.9%) 1,000 mls @ 100 mls/hr IV .Q10H [facility] Last Admin: 11/28/16 12:45 Dose: 100 mls/hr Insulin Human Regular (Novolin R) 0 unit SC ACHS [facility] PRN Reason: Protocol Last Admin: 11/28/16 11:30 Dose: Not Given Latanoprost (Xalatan Opht) 0 ml OU HS [facility] Nebivolol (Bystolic) 20 mg PO DAILY [facility] Pantoprazole Sodium (Protonix Ec Tab) 40 mg PO DAILY [facility] Last Admin: 11/28/16 13:34 Dose: 40 mg Sodium Bicarbonate (Sodium Bicarbonate Tab) 650 mg PO BID [facility] Last Admin: 11/28/16 13:30 Dose: 650 mg Results - Vital Signs Recent Vital Signs: Last Vital Signs Temp 98.5 F 11/28/16 08:00 Pulse 90 11/28/16 08:00 Resp 20 11/28/16 08:00 BP 168/81 H 11/28/16 08:00 Pulse Ox 100 11/28/16 08:00 - Labs Result Diagrams: 11/28/16 07:33 11/28/16 07:33 Labs: Laboratory Results - last 24 hr 11/28/16 11/28/16 11/28/16 06:26 07:33 07:33 WBC 5.9 RBC 3.18 L Hgb 9.0 L Hct 27.7 L MCV 87.2 MCH 28.4 MCHC 32.6 L RDW 13.5 Plt Count 189 MPV 8.5 Neut % (Auto) 50.7 Lymph % (Auto) 34.4 [place] % (Auto) 10.9 H Eos % (Auto) 3.7 Baso % (Auto) 0.3 Neut # 3.0 Lymph # 2.0 Ness # 0.6 Eos # 0.2 Baso # 0.0 APTT Sodium 137 Potassium 4.6 Chloride 104 Carbon Dioxide 23 Anion Gap 15 BUN 70 H Creatinine 5.3 H Est GFR ( Amer) 10 Est GFR (Non-Af Amer) 8 POC Glucose (mg/dL) 179 H Random Glucose 156 H Calcium 8.8 Phosphorus 5.8 H Magnesium 2.3 Total Bilirubin 0.5 AST 31 ALT 33 Alkaline Phosphatase 193 H Total Creatine Kinase 63 CK-MB (Mass) 1.16 Troponin I, Quant < 0.0120 Total Protein 6.9 Albumin 3.3 L Globulin 3.6 Albumin/Globulin Ratio 0.9 L 11/28/16 11/28/16 11/28/16 11:32 13:35 16:31 WBC RBC Hgb Hct MCV MCH MCHC RDW Plt Count MPV Neut % (Auto) Lymph % (Auto) Ness % (Auto) Eos % (Auto) Baso % (Auto) Neut # Lymph # Ness # Eos # Baso # APTT 87 H D Sodium Potassium Chloride Carbon Dioxide Anion Gap BUN Creatinine Est GFR ( Amer) Est GFR (Non-Af Amer) POC Glucose (mg/dL) 217 H 196 H Random Glucose Calcium Phosphorus Magnesium Total Bilirubin AST ALT Alkaline Phosphatase Total Creatine Kinase CK-MB (Mass) Troponin I, Quant Total Protein Albumin Globulin Albumin/Globulin Ratio
--- NOTE | 2016-11-28 21:06 | CON ---
DATE: 11/28/2016 REQUESTING PHYSICIAN: Dr. Santos. HISTORY OF PRESENT ILLNESS: This patient was here not too long ago, she is a 60-year-old female. Anne Marie ospina suffers from rheumatoid arthritis, hypertension, diabetes, CHF, CKD, ____ GERD. She was admitted i n the past for cellulitis and rash of the legs, which improved. She comes in now with pain in legs b ack and chest and she complains of throat pain also. She has pain in her left foot, back and chest w hen she came in. Today she also complains of pain in her chest, which gets worse when she takes a de ep breath. She did not take any pain medications; however, and she a very poor historian. Denies an y radiation of the pain. Denies nausea, vomiting. Does say she is having throat pain also. She com es in with aches and pains. She ambulates with a cane and walker. She knows her kidneys are not fun ctioning and she was seen by the renal attending here. PAST MEDICAL HISTORY: Significant for hypertension, diabetes, rheumatoid arthritis, muscle spasms, C KD, CHF and cellulitis, which she had last time. MEDICATIONS: She does not remember the medication she takes. ALLERGIES: SHE IS ALLERGIC TO CODEINE, IODINE, PENICILLIN, SULFA, VANCOMYCIN, SEAFOOD. PAST SURGICAL HISTORY: Significant for eye surgery recently for glaucoma and cataracts and knee surg fátima. FAMILY HISTORY: Mother in an MVA. Multiple members have cardiac disease and the brother recent ly she thinks it might be due to cardiac etiology. SOCIAL HISTORY: Significant for 1 pack per day for 40 years, quit 2 weeks ago. Denies alcohol and o ther drugs. REVIEW OF SYSTEMS: She came in without any chills or fever. Denies any eye problems. Does complain of nose running and she does complain of chest pain and has pain in the feet, also she has got right leg swelling also and she had a fracture in that leg. No abdominal pain, no constipation, no diarrh ea, no nausea or vomiting, no urinary complaints, just complains of muscle cramps, complains of chron ic foot, in the back of the right foot, she complains of pain in the right foot, that is what she kelly d me. PAST MEDICAL HISTORY: Significant for she is a smoker, history of cardiac disease, hypertension. Anne Marie ospina also has cataracts, glaucoma. She has chronic renal problems. She has diabetes type 2. She has a rthritis, rheumatoid arthritis. She also has anxiety and depression. PAST SURGICAL HISTORY: She has a history of cholecystectomy, history of anesthesia in the past. PHYSICAL EXAMINATION: VITAL SIGNS: I find her temperature is 98.5, pulse is 90, blood pressure 168/81, respirations are 20 . She had no fever when She came in. HEENT: Head is atraumatic, normocephalic. She appears chronically ill. HEENT exam is unremarkable. Tongue is moist. NECK: Supple. JVP is flat. She also gives history of having breast surgery for breast cancer, lump ectomy, neck pain, headache, Neck is supple otherwise in some movements. LUNGS: Clear. Decreased breath sounds bilaterally. HEART: S1, S2 is regular. No murmurs appreciated. ABDOMEN: Soft, nontender, no guarding. No rigidity present. EXTREMITIES: Right leg has positive edema and swelling on the foot. Left leg appears unremarkable. LABORATORY DATA: Noted. Labs show white count is 5.9, hemoglobin 9, hematocrit 27.7, platelet count is 189. Sodium is 137, potassium 4.6, chloride 104, CO2 is 23, anion gap is 15, BUN is 70 and creat inine 5.3. The head CT showed a normal CT of the head. She also had duplex scan, which is of the lo wer extremities, which is pending. They also did a VQ scan low probability of pulmonary embolism. T he chest x-ray was done, which shows moderate to severe venous congestion with prominent air space co nsolidation changes of the left lung, moderate left pleural effusions. So at this time, we will have to place her on antibiotics. She was seen last time when she was on so me here from 11/14 to 11/19. At this time, I think she has come in with exacerbation of her rheumatoi d arthritis. Will put her on some antibiotic which she is not allergic to, probably Tygacil if neede d. Fernando Hubbard MD cc: [id number] TT: 11/28/2016 21:05:33 Confirmation # [id number] Dictation # [id number] jn
--- NOTE | 2016-11-28 21:41 | CP.PCM.CON ---
History of Present Illness - History of Present Illness History of Present Illness: CC - Chest Pains HPI - Patient is a 60 year old female with past medical history significant for HTN, diabetes,CHF, CKD, GERD and rheumatoid arthritis who presents today stating that she has pain in her left leg/foot, back, and chest. She reports that this chest pain started yesterday in the morning and is midsternal. She can 't remember what she was doing when the pain started. She reports that it is worse when she takes a deep breath. She did not take any medications to help the pain. She states the pain comes and goes but is unsure about this fact and can't quantify how long this pain lasts when she has it. She denies radiation of the pain diaphoresis, N/V. She was recently hospitalized here and November and states she followed up with her PMD but not cardiology or nephrology as instructed. She denies fever/chills or shortness of breath. She states is ambulates with a cane/walker. She reports that she knows her kidneys are not functioning well and that she does seems to be making less urine than normal. She is urinating twice a day. She denies dysuria. She states she doesn't feel well/normal. PMD: Brittni PMHx: HTN, DM, RA, muscle spasms, CKD, CHF Meds: unsure about and med rec not [facility], will need to call Dr. Elkins to confirm medications, patient does not remember Allergies: codeine, iodine, pen, sulfa, vanc, seafood PSHx: eye surgery recently for glaucoma and cataracts, knee surgery FamHx: mother in MVA, multiple family members with cardiac disease, brother recently of unknown cause, pt states possibly cardiac related Social Hx: former 1ppd smoker for 40 years- quit 2 weeks ago, denies alcohol, drugs; lives with daughter Present on Admission - Present on Admission Any Indicators Present on Admission: No Review of Systems - Constitutional Constitutional: absent: Chills, Fever - EENT Eyes: absent: Blurred Vision, Change in Vision - Cardiovascular Cardiovascular: Chest Pain, Chest Pain at Rest, Pedal Edema. absent: Palpitations, Syncope - Respiratory Respiratory: absent: Cough, Dyspnea, Dyspnea on Exertion - Gastrointestinal Gastrointestinal: absent: Abdominal Pain, Constipation, Diarrhea, Nausea, Vomiting - Genitourinary Genitourinary: Voiding Freq/Small Amts. absent: Dysuria, Hematuria - Musculoskeletal Musculoskeletal: Muscle Cramps, Muscle Weakness, Stiffness Additional comments: Lower chronic back pain, pain in left foot Meds Allergies/Adverse Reactions: Allergies Allergy/AdvReac Type Severity Reaction Status Date / Time codeine Allergy ITCHING Verified 11/27/16 21:38 Iodine and Iodide Containing Allergy ITCHING Verified 11/27/16 21:38 Produc Penicillins Allergy RASH Verified 11/27/16 21:38 Sulfa (Sulfonamide Allergy RASH Verified 11/27/16 21:38 Antibiotics) vancomycin Allergy RASH Verified 11/27/16 21:38 seafood Allergy RASH Uncoded 11/27/16 21:38 Physical Exam - Constitutional Appears: Non-toxic, No Acute Distress, Chronically Ill - Head Exam Head Exam: ATRAUMATIC, NORMAL INSPECTION - Eye Exam Eye Exam: EOMI, Normal appearance, PERRL Pupil Exam: NORMAL ACCOMODATION - ENT Exam ENT Exam: Mucous Membranes Moist - Respiratory Exam Respiratory Exam: Clear to Auscultation Bilateral, Rales, NORMAL BREATHING PATTERN. absent: Respiratory Distress - Cardiovascular Exam Cardiovascular Exam: REGULAR RHYTHM, +S1, +S2, Systolic Murmur - GI/Abdominal Exam GI & Abdominal Exam: Normal Bowel Sounds, Soft. absent: Distended, Firm, Guarding, Tenderness - Extremities Exam Extremities exam: Positive for: normal inspection, pedal edema. Negative for: calf tenderness - Back Exam Back exam: NORMAL INSPECTION. absent: CVA tenderness (L), CVA tenderness (R), paraspinal tenderness - Neurological Exam Neurological exam: Alert, Oriented x3 - Psychiatric Exam Psychiatric exam: Flat Affect, Normal Affect, Normal Mood - Skin Skin Exam: Dry, Intact, Normal Color, Warm Past Patient History - Past Medical History & Family History Past Medical History?: Yes - Past Social History Smoking Status: Former Smoker - CARDIAC Hx Congestive Heart Failure: Yes Hx Hypertension: Yes - HEENT Hx Cataracts: Yes Hx Glaucoma: Yes - RENAL Other/Comment: Hx of Chronic Kidney Disease - ENDOCRINE/METABOLIC Hx Endocrine Disorders: Yes Hx Diabetes Mellitus Type 2: Yes - MUSCULOSKELETAL/RHEUMATOLOGICAL Hx Falls: Yes - PSYCHIATRIC Hx Substance Use: No - SURGICAL HISTORY Hx Cholecystectomy: Yes - ANESTHESIA Hx Anesthesia: Yes Hx Anesthesia Reactions: No Meds Allergies/Adverse Reactions: Allergies Allergy/AdvReac Type Severity Reaction Status Date / Time codeine Allergy ITCHING Verified 11/27/16 21:38 Iodine and Iodide Containing Allergy ITCHING Verified 11/27/16 21:38 Produc Penicillins Allergy RASH Verified 11/27/16 21:38 Sulfa (Sulfonamide Allergy RASH Verified 11/27/16 21:38 Antibiotics) vancomycin Allergy RASH Verified 11/27/16 21:38 seafood Allergy RASH Uncoded 11/27/16 21:38 - Medications Medications: Current Medications Calcium Acetate (Phoslo) 667 mg PO BIDCC [facility] Last Admin: 11/28/16 18:58 Dose: 667 mg Sodium Chloride (Sodium Chloride 0.9%) 1,000 mls @ 100 mls/hr IV .Q10H [facility] Last Admin: 11/28/16 12:45 Dose: 100 mls/hr Insulin Human Regular (Novolin R) 0 unit SC ACHS [facility] PRN Reason: Protocol Last Admin: 11/28/16 11:30 Dose: Not Given Latanoprost (Xalatan Opht) 0 ml OU HS [facility] Nebivolol (Bystolic) 20 mg PO DAILY [facility] Last Admin: 11/28/16 18:57 Dose: 20 mg Pantoprazole Sodium (Protonix Ec Tab) 40 mg PO DAILY [facility] Last Admin: 11/28/16 13:34 Dose: 40 mg Sodium Bicarbonate (Sodium Bicarbonate Tab) 650 mg PO BID [facility] Last Admin: 11/28/16 18:57 Dose: 650 mg Results - Vital Signs Recent Vital Signs: Last Vital Signs Temp 99.5 F 11/28/16 15:54 Pulse 96 H 11/28/16 15:54 Resp 20 11/28/16 15:54 BP 135/89 11/28/16 15:54 Pulse Ox 98 11/28/16 15:54 - Labs Result Diagrams: 11/28/16 07:33 11/28/16 07:33 Labs: Laboratory Results - last 24 hr 11/28/16 11/28/16 11/28/16 06:26 07:33 07:33 WBC 5.9 RBC 3.18 L Hgb 9.0 L Hct 27.7 L MCV 87.2 MCH 28.4 MCHC 32.6 L RDW 13.5 Plt Count 189 MPV 8.5 Neut % (Auto) 50.7 Lymph % (Auto) 34.4 Blair % (Auto) 10.9 H Eos % (Auto) 3.7 Baso % (Auto) 0.3 Neut # 3.0 Lymph # 2.0 Blair # 0.6 Eos # 0.2 Baso # 0.0 APTT Sodium 137 Potassium 4.6 Chloride 104 Carbon Dioxide 23 Anion Gap 15 BUN 70 H Creatinine 5.3 H Est GFR ( Amer) 10 Est GFR (Non-Af Amer) 8 POC Glucose (mg/dL) 179 H Random Glucose 156 H Lactic Acid Calcium 8.8 Phosphorus 5.8 H Magnesium 2.3 Total Bilirubin 0.5 AST 31 ALT 33 Alkaline Phosphatase 193 H Total Creatine Kinase 63 CK-MB (Mass) 1.16 Troponin I, Quant < 0.0120 Total Protein 6.9 Albumin 3.3 L Globulin 3.6 Albumin/Globulin Ratio 0.9 L Procalcitonin 11/28/16 11/28/16 11/28/16 11:32 13:35 16:31 WBC RBC Hgb Hct MCV MCH MCHC RDW Plt Count MPV Neut % (Auto) Lymph % (Auto) Blair % (Auto) Eos % (Auto) Baso % (Auto) Neut # Lymph # Blair # Eos # Baso # APTT 87 H D Sodium Potassium Chloride Carbon Dioxide Anion Gap BUN Creatinine Est GFR ( Amer) Est GFR (Non-Af Amer) POC Glucose (mg/dL) 217 H 196 H Random Glucose Lactic Acid Calcium Phosphorus Magnesium Total Bilirubin AST ALT Alkaline Phosphatase Total Creatine Kinase CK-MB (Mass) Troponin I, Quant Total Protein Albumin Globulin Albumin/Globulin Ratio Procalcitonin 11/28/16 11/28/16 17:37 17:37 WBC RBC Hgb Hct MCV MCH MCHC RDW Plt Count MPV Neut % (Auto) Lymph % (Auto) Blair % (Auto) Eos % (Auto) Baso % (Auto) Neut # Lymph # Blair # Eos # Baso # APTT Sodium Potassium Chloride Carbon Dioxide Anion Gap BUN Creatinine Est GFR ( Amer) Est GFR (Non-Af Amer) POC Glucose (mg/dL) Random Glucose Lactic Acid 1.1 Calcium Phosphorus Magnesium Total Bilirubin AST ALT Alkaline Phosphatase Total Creatine Kinase CK-MB (Mass) Troponin I, Quant Total Protein Albumin Globulin Albumin/Globulin Ratio Procalcitonin 0.16 L Assessment & Plan - Assessment and Plan (Free Text) Assessment: Assessment & Plan JESSICA on CKD Cr 5.5, on last admission was 4 pt reports making less urine Nephrology consult- Dr. Morillo- help appreciated Renal ultrasound on last admission- small amount of perinephric fluid adjacent to lower pole left kidney, increased echogenicity bilateral renal cortices suggestive for medical renal disease sodium bicarb 650mg PO BID avoid nephrotoxins Elevated DDIMER Given one dose of lovenox in the ED due to renal function will start heparin drip f/u venous dopplers VQ scan to rule out PE Chest pain Hx - CHF, not on appropriate meds but will need to verity with PMD EKG no acute changes Troponin negative x 1, will trend f/u chest Xray Echo 11/14/16- normal LVEF, moderate pulmonary HTN @ 47mmHg, diastolic HF Morphine 2mg IVP prn pain ECHO and Stress test prior to discharge HTN bystolic 20mg daily BP controlled will confirm meds with PMD monitor on tele Diabetes accuchecks ISS mod consistent carb diet Rheumatoid arthritis was on prednisone at home daily Depression Pt emotionally labile Prophylactic measure heparin drip protonix 40mg daily
--- NOTE | 2016-11-28 21:42 | CP.PCM.PN ---
<Lars Zaldivar - Last Filed: 11/28/16 21:39> Subjective - Date & Time of Evaluation Date of Evaluation: 11/28/16 Time of Evaluation: 11:30 - Subjective Subjective: Patient was seen and examined at bedside. Patient was lethargic and responding with one word answers. She was AAOx3. Patient complained of not feeling well. She complained of pain in left calf and heel. She complained of headache. She denied chest pain, shortness of breath, vomiting, diarrhea, fever, chills. Objective - Vital Signs/Intake and Output Vital Signs (last 24 hours): Temp Pulse Resp BP Pulse Ox 99.5 F 96 H 20 135/89 98 11/28/16 15:54 11/28/16 15:54 11/28/16 15:54 11/28/16 15:54 11/28/16 15:54 - Medications Medications: Current Medications [facility] Last Admin: 11/28/16 18:58 Dose: 667 mg Sodium Chloride (Sodium Chloride 0.9%) 1,000 mls @ 100 mls/hr IV .Q10H [facility] Last Admin: 11/28/16 12:45 Dose: 100 mls/hr Insulin Human Regular (Novolin R) 0 unit SC ACHS [facility] PRN Reason: Protocol Last Admin: 11/28/16 11:30 Dose: Not Given Latanoprost (Xalatan Opht) 0 ml OU HS [facility] Nebivolol (Bystolic) 20 mg PO DAILY [facility] Last Admin: 11/28/16 18:57 Dose: 20 mg Pantoprazole Sodium (Protonix Ec Tab) 40 mg PO DAILY [facility] Last Admin: 11/28/16 13:34 Dose: 40 mg Sodium Bicarbonate (Sodium Bicarbonate Tab) 650 mg PO BID [facility] Last Admin: 11/28/16 18:57 Dose: 650 mg - Labs Labs: 11/28/16 07:33 11/28/16 07:33 PT 12.7 SECONDS (9.7-12.2) H 11/27/16 21:57 INR 1.1 11/27/16 21:57 APTT 87 SECONDS (21-34) H D 11/28/16 13:35 - Constitutional Appears: Toxic, In Acute Distress - Head Exam Head Exam: ATRAUMATIC, NORMAL INSPECTION, NORMOCEPHALIC - Eye Exam Eye Exam: EOMI, Normal appearance - ENT Exam ENT Exam: Mucous Membranes Moist - Neck Exam Neck Exam: Full ROM - Respiratory Exam Respiratory Exam: Clear to Ausculation Bilateral, NORMAL BREATHING PATTERN - Cardiovascular Exam Cardiovascular Exam: REGULAR RHYTHM - GI/Abdominal Exam GI & Abdominal Exam: Normal Bowel Sounds - Rectal Exam Rectal Exam: Deferred - Extremities Exam Additional comments: tenderness in right calf and heel - Neurological Exam Neurological Exam: Altered, Awake, Oriented x3. absent: Normal Gait - Skin Skin Exam: Normal Color, Warm Assessment and Plan (1) Metabolic encephalopathy Assessment & Plan: Dr. Hubbard of Infectious disease consulted, f/u recs Blood cx, urine cx, urinanalysis, f/u aztrenoam 1 mg IV once r/o cranial bleed -head CT, impression: normal CT of the head narcan 0.4mg IV once morphine was discontinued f/u procalcitonin and lactate urine drug screen r/o hospital acquired pneumonia (patient was hospitalized earlier this month) -Chest xray impression: moderate to severe venous congestion with prominent airspace consolidative changes at the left lung base. Moderate left pleural effusion -order strep, mycoplasma, legionella r/o pulmonary embolism -lung scan-vq nm: low probability for pulmonary embolism -f/u duplex scan of lower extremity artery Status: Acute (2) Acute on chronic renal failure Assessment & Plan: BUN [address] morillo of nephrology consulted, f/u recs renal dose all medications order d5 1/2 ns 50 cc/hr hold león/arb/statin/diuretic 2/2 lan Status: Chronic (3) Type 2 diabetes mellitus with diabetic chronic kidney disease Assessment & Plan: D5 1/2 ns 50 cc/hr accuchecks q achs Status: Chronic (4) CHF (congestive heart failure), NYHA class III Assessment & Plan: Ins and Outs daily weights bystolic 20mg daily cardiology consulted, dr. abebe, help appreciated Status: Acute (5) Prophylactic measure Assessment & Plan: protonix 40mg po daily SCDs pt eval and treat Status: Acute <Arabella Cobian V - Last Filed: 12/01/16 07:23> Objective - Vital Signs/Intake and Output Vital Signs (last 24 hours): Temp Pulse Resp BP Pulse Ox 98 F 73 20 157/84 H 97 12/01/16 04:00 06/26/17 04:18 12/01/16 04:00 12/01/16 04:00 12/01/16 04:00 Intake and Output: 12/01/16 12/01/16 06:59 18:59 Intake Total 100 Balance 100 - Medications Medications: Current Medications Artificial Tears (Artificial Tears) 0 ml OU BID [facility] Last Admin: 11/30/16 17:49 Dose: 1 drop Calcium Acetate (Phoslo) 667 mg PO BIDCC [facility] Last Admin: 11/30/16 17:49 Dose: 667 mg Furosemide (Lasix) 80 mg PO DAILY [facility] Last Admin: 11/30/16 10:41 Dose: 80 mg Heparin Sodium (Porcine) (Heparin) 5,000 units SC Q12 [facility] Last Admin: 11/30/16 21:55 Dose: 5,000 units Home Med (Home Med) 1 unit PO DAILY [facility] Home Med (Brinzolamide/Brimonidine Tart [Simbrinza 1%-0.2% Eye Drops]) 1 drop BOTHEYES BID [facility] Last Admin: 11/30/16 17:52 Dose: Not Given Home Med (Bromfenac Sodium [Prolensa]) 1 drop OD DAILY [facility] Last Admin: 11/30/16 15:00 Dose: Not Given Home Med (Difluprednate [Durezol]) 1 drop OD TID [facility] Last Admin: 11/30/16 17:52 Dose: Not Given Home Med (Esomeprazole Magnesium [Nexium]) 40 mg PO DAILY [facility] Dextrose/Sodium Chloride (Dextrose 5%/0.45% Ns 1000 Ml) 1,000 mls @ 50 mls/hr IV .Q20H [facility] Last Admin: 11/30/16 14:00 Dose: Not Given Insulin Human Regular (Novolin R) 0 unit SC ACHS [facility] PRN Reason: Protocol Last Admin: 11/28/16 11:30 Dose: Not Given Latanoprost (Xalatan Opht) 0 ml OU HS [facility] Last Admin: 11/30/16 21:55 Dose: 2.5 ml Nebivolol (Bystolic) 20 mg PO DAILY [facility] Last Admin: 11/30/16 10:42 Dose: 20 mg Nifedipine (Procardia Xl) 90 mg PO DAILY [facility] Last Admin: 11/30/16 10:41 Dose: 90 mg Sodium Bicarbonate (Sodium Bicarbonate Tab) 650 mg PO BID [facility] Last Admin: 11/30/16 17:49 Dose: 650 mg - Labs Labs: 11/30/16 08:21 11/30/16 08:21 PT 12.7 SECONDS (9.7-12.2) H 11/27/16 21:57 INR 1.1 11/27/16 21:57 APTT 87 SECONDS (21-34) H D 11/28/16 13:35 Attending/Attestation - Attestation I have personally seen and examined this patient.: Yes I have fully participated in the care of the patient.: Yes I have reviewed all pertinent clinical information, including history, physical exam and plan: Yes Notes (Text): This is late computer entry 11/28/16. Patient seen, examined and case discussed with day-time resident. Patient seen in the morning. Patient appears very lethargic and dehydrated, not toxic. She is not flushed or exhibiting high temperature. Discussed in detail assessment and plan with the resident. Assessment/Plan (1) Metabolic encephalopathy Assessment & Plan: * Dr. Hubbard of Infectious disease consulted, f/u recs * Ordered for Blood cx, urine cx, urinanalysis, f/u * aztrenoam 1 mg IV once given patient's extensive allergies and concern for possible hospital acquired pneumonia * head CT (11/28/16): normal CT of the head * Narcotic and benzos discontinued given altered mental status and lethargy; ordered for narcan 0.4mg IV once given patient was on narcotic medications post- hospitalization * f/u procalcitonin and lactate * urine drug screen * Chest xray: moderate to severe venous congestion with prominent airspace consolidative changes at the left lung base. Moderate left pleural effusion; order strep, mycoplasma, legionella * Elevated d-dimer: lung scan-vq nm: low probability for pulmonary embolism; f/ u duplex scan of lower extremity artery:prelim read is negative; heparin drip stopped Status: Acute (2) Acute on chronic renal failure Assessment & Plan: * Dr. Morillo (nephrology) on board-->help appreciated * monito BUN/Cr * Nephrology to determine if patient needs dialysis or not; no hyperkalemia, metabolic acidosis; increased BUN/Cr * renal dose all medications * order d5 1/2 ns 50 cc/hr * hold león/arb/statin/diuretic 2/2 acute on chronic renal insuffiency Status: Chronic (3) Type 2 diabetes mellitus with diabetic chronic kidney disease Assessment & Plan: * D5 1/2 ns 50 cc/hr * accuchecks q achs Status: Chronic (4) CHF (congestive heart failure), NYHA class III Assessment & Plan: Ins and Outs daily weights bystolic 20mg daily cardiology consulted, dr. abebe, help appreciated held arb/león/statin/diuretic given patients acute on chronic renal insuffiency held aspirin until CT head r/o bleed given altered mental status this morning Satus: Acute (5) Prophylactic measure Assessment & Plan: protonix 40mg po daily SCDs pt eval and treat Status: Acute
[2016-11-28] MEDS ORDERED: Aztreonam 1 GM in Sodium Chloride 0.9% 100 ML IVPB ONE (22:14)
[2016-11-28] MEDS: Latanoprost 2.5 ml Opht Soln OU SCH (23:19)
[2016-11-28] MEDS: Dextrose 5%/0.45% NS 1,000 ML IV SCH (23:58)
[2016-11-29 02:11] LABS: RBC URINE 1 /hpf (0-3); URINE BACTERIA RARE (<OCC); URINE BILIRUBIN NEGATIVE (NEGATIVE); URINE BLOOD NEGATIVE (NEGATIVE); URINE COLOR Straw (YELLOW); URINE GLUCOSE (UA) 1+ mg/dL (Normal); URINE KETONE NEGATIVE (NEGATIVE); URINE LEUKOCYTE ESTERASE NEG Leu/uL (Negative); URINE PROTEIN 2+ mg/dL (NEGATIVE); URINE UROBILINOGEN NORMAL mg/dL (0.2-1.0); WBC URINE 1 /hpf (0-5)
[2016-11-29] MEDS ORDERED: Aluminum Hydroxide/Magnesium Hydroxide Susp (30 mL) PO ONE (06:54)
[2016-11-29] MEDS ORDERED: Labetalol 25mg/5ml Syringe IVP ONE (09:33)
--- NOTE | 2016-11-29 09:57 | CP.PCM.PN ---
Subjective - Date & Time of Evaluation Date of Evaluation: 11/29/16 Time of Evaluation: 09:50 - Subjective Subjective: afebrile bp elevated no new chems await renal ultrasound doesn't feel good epigastric pain persists See above sob no chest pain cough Epigastric pain intermittent nauseas vomited x 1 earlier no diarrhea no dysuria Objective - Vital Signs/Intake and Output Vital Signs (last 24 hours): Temp Pulse Resp BP Pulse Ox 98.2 F 80 20 199/80 H 95 11/29/16 08:31 11/29/16 08:31 11/29/16 08:31 11/29/16 08:31 11/29/16 08:31 Intake and Output: 11/29/16 11/29/16 06:59 18:59 Intake Total 800 Balance 800 - Medications Medications: Current Medications Calcium Acetate (Phoslo) 667 mg PO BIDCC [facility] Last Admin: 11/28/16 18:58 Dose: 667 mg Dextrose/Sodium Chloride (Dextrose 5%/0.45% Ns 1000 Ml) 1,000 mls @ 50 mls/hr IV .Q20H [facility] Last Admin: 11/28/16 23:58 Dose: 50 mls/hr Tigecycline 50 mg/ Sodium (Chloride) 100 mls @ 100 mls/hr IVPB Q12H [facility] Stop: 12/04/16 23:59 Insulin Human Regular (Novolin R) 0 unit SC ACHS [facility] PRN Reason: Protocol Last Admin: 11/28/16 11:30 Dose: Not Given Labetalol HCl (Trandate) 200 mg PO ONCE ONE Stop: 11/29/16 10:01 Latanoprost (Xalatan Opht) 0 ml OU HS [facility] Last Admin: 11/28/16 23:19 Dose: 2.5 ml Nebivolol (Bystolic) 20 mg PO DAILY [facility] Last Admin: 11/28/16 18:57 Dose: 20 mg Pantoprazole Sodium (Protonix Ec Tab) 40 mg PO DAILY [facility] Last Admin: 11/28/16 13:34 Dose: 40 mg Sodium Bicarbonate (Sodium Bicarbonate Tab) 650 mg PO BID [facility] Last Admin: 11/28/16 18:57 Dose: 650 mg - Labs Labs: 11/28/16 07:33 11/28/16 07:33 PT 12.7 SECONDS (9.7-12.2) H 11/27/16 21:57 INR 1.1 11/27/16 21:57 APTT 87 SECONDS (21-34) H D 11/28/16 13:35 - Constitutional Appears: No Acute Distress - Respiratory Exam Respiratory Exam: Clear to Ausculation Bilateral - Cardiovascular Exam Cardiovascular Exam: REGULAR RHYTHM. absent: JVD, Rubs - GI/Abdominal Exam GI & Abdominal Exam: Soft. absent: Distended Additional comments: epigastric tenderness - Extremities Exam Extremities Exam: absent: Calf Tenderness - Back Exam Back Exam: absent: CVA tenderness (L), CVA tenderness (R) - Psychiatric Exam Psychiatric exam: Anxious - Skin Skin Exam: Dry Assessment and Plan (1) Acute on chronic renal failure Status: Chronic (2) Type 2 diabetes mellitus with diabetic chronic kidney disease Status: Chronic (3) Hypertension Status: Acute - Assessment and Plan (Free Text) Plan: long discussion about need to start dialysis she refuses case discussed with medical team add lasix and procardia to regimen repeat chest xray await renal ultrasound
[2016-11-29] MEDS ORDERED: NIFEdipine 90 mg ER Tab PO SCH (10:15)
--- NOTE | 2016-11-29 10:53 | VASCLAB ---
PROCEDURE: Lower Extremity Venous Duplex Exam. HISTORY: + ddimer PRIORS: None. TECHNIQUE: Bilateral common femoral, femoral, popliteal and posterior tibial, peroneal and great saphenous veins were evaluated. Flow was assessed with color Doppler, compressibility, assessment of phasic flow and augmentation response. Report prepared by Den Wong, YE, RVT FINDINGS: RIGHT: 1. Common Femoral Vein: 1.1. Compressibility - Fully compressible: Thrombus - None : Flow - Phasic: Augmentation -Normal: Reflux - None. 2. Femoral Vein: 2.1. Compressibility - Fully compressible: Thrombus - None : Flow - Phasic: Augmentation -Normal: Reflux - None. 3. Popliteal Vein: 3.1. Compressibility - Fully compressible: Thrombus - None : Flow - Phasic: Augmentation -Normal: Reflux - None. 4. Posterior Tibial Vein: 4.1. Compressibility - Fully compressible: Thrombus - None: Flow - Phasic: Augmentation -Normal: Reflux - None. 5. Peroneal Vein: 5.1. Compressibility - Fully compressible: Thrombus - None: Flow - Phasic: Augmentation -Normal: Reflux - None. 6. Great Saphenous Vein: 6.1. Compressibility - Fully compressible: Thrombus - None: Flow - Phasic: Augmentation - Normal: Reflux - None. LEFT: 1. Common Femoral Vein: 1.1. Compressibility - Fully compressible: Thrombus - None: Flow - Phasic: Augmentation -Normal: Reflux - None. 2. Femoral Vein: 2.1. Compressibility - Fully compressible: Thrombus - None: Flow - Phasic: Augmentation -Normal: Reflux - None. 3. Popliteal Vein: 3.1. Compressibility - Fully compressible: Thrombus - None : Flow - Phasic: Augmentation -Normal: Reflux - None. 4. Posterior Tibial Vein: 4.1. Compressibility - Fully compressible: Thrombus - None: Flow - Phasic: Augmentation -Normal: Reflux - None. 5. Peroneal Vein: 5.1. Compressibility - Fully compressible: Thrombus - None: Flow - Phasic: Augmentation -Normal: Reflux - None. 6. Great Saphenous Vein: 6.1. Compressibility - Fully compressible: Thrombus - None: Flow - Phasic: Augmentation - Normal: Reflux - None. OTHER FINDINGS: Extensive bilateral lower extremity soft tissue edema. IMPRESSION: Right: No evidence of deep or superficial vein thrombosis of the right lower extremity. Normal valve function noted of the right side. Left: No evidence of deep or superficial vein thrombosis of the left lower extremity. Normal valve function noted of the left side.
[2016-11-29] MEDS: NIFEdipine 90 mg ER Tab PO SCH (11:43)
[2016-11-29] MEDS: Pantoprazole 40 mg EC Tab PO SCH (11:44)
--- NOTE | 2016-11-29 12:31 | RAD ---
PROCEDURE: CHEST RADIOGRAPH, 1 VIEW HISTORY: pleural effusion COMPARISON: 11/28/2016 FINDINGS: LUNGS: No pulmonary infiltrate. Please note that examination was limited and lateral view could not be performed at this time. PLEURA: No pneumothorax or pleural fluid seen. CARDIOVASCULAR: Normal. OSSEOUS STRUCTURES: No significant abnormalities. VISUALIZED UPPER ABDOMEN: Normal. OTHER FINDINGS: None. IMPRESSION: No active disease.
--- NOTE | 2016-11-29 14:58 | US ---
PROCEDURE: Ultrasound of the Kidneys HISTORY: acute renal failure COMPARISON: None available. TECHNIQUE: Sonogram of the kidneys. FINDINGS: RIGHT KIDNEY: Measures: 10.9 cm. Diffusely increased renal cortical echogenicity. No mass, calculus or hydronephrosis. LEFT KIDNEY: Measures: 10.5 cm. Diffusely increased cortical echogenicity. No mass, calculus or hydronephrosis. Trace perinephric fluid common nonspecific. OTHER FINDINGS: Distended urinary bladder measures 312.5 cc. Grossly normal wall thickness. No intraluminal mass. Ureteral jets not demonstrated. Patient unable to void for postvoid residual volume determination. IMPRESSION: Echogenic kidneys. Please correlate with laboratory testing for medical renal disease. No evidence urinary tract obstruction. Trace left perinephric fluid common nonspecific. Limited evaluation of urinary bladder as above.
[2016-11-29] MEDS ORDERED: Home Med 1 UNIT PO SCH (16:00)
[2016-11-29 17:18] LABS: BASO # 0.1 K/uL (0.0-0.2); BASO % 0.8 % (0.0-2.0); EOS # 0.1 K/uL (0.0-0.7); HEMATOCRIT 30.1 % (34.0-47.0); LYMPH # 1.5 K/uL (1.0-4.3); MEAN CELL VOLUME 86.1 fL (81.0-99.0); MEAN CORPUSCULAR HEMOGLOBIN 27.8 pg (27.0-31.0); MEAN CORPUSCULAR HGB CONC 32.3 g/dL (33.0-37.0); MEAN PLATELET VOLUME 8.9 fL (7.2-11.7); MONO # 0.4 K/uL (0.0-0.8); NRBC % 0.1 % (0.0-2.0); RED CELL DISTRIBUTION WIDTH 13.1 % (11.5-14.5); WHITE BLOOD COUNT 6.7 K/uL (4.8-10.8)
[2016-11-29 17:32] LABS: CHLORIDE 105 mmol/L (98-107); SODIUM 137 mmol/L (132-148)
[2016-11-29 17:34] LABS: ALB/GLOB RATIO 0.9 (1.0-2.1); ALKALINE PHOSPHATASE 190 U/L (38-126); AST/SGOT 21 U/L (14-36); BILIRUBIN,TOTAL 0.6 mg/dL (0.2-1.3); CARBON DIOXIDE 22 mmol/L (22-30); GFR AFRICAN-AMERICAN 13; TOTAL PROTEIN 7.4 g/dL (6.3-8.3)
[2016-11-29 17:35] LABS: ALT/SGPT 25 U/L (9-52); BLOOD UREA NITROGEN 63 mg/dL (7-17); CALCIUM 9.2 mg/dl (8.6-10.4); GLUCOSE,RANDOM 186 mg/dL (65-105); MAGNESIUM 2.1 mg/dL (1.6-2.3); PHOSPHOROUS 4.7 mg/dL (2.5-4.5)
[2016-11-29] MEDS: Dextrose 5%/0.45% NS 1,000 ML IV SCH (17:49)
--- NOTE | 2016-11-29 17:50 | CP.PCM.PN ---
<OliveiraPaul - Last Filed: 11/29/16 17:47> Subjective - Date & Time of Evaluation Date of Evaluation: 11/29/16 Time of Evaluation: 10:00 - Subjective Subjective: PGY2 on medicine Dr. Cobian service: Pt seen and examined at bedside this morning. Pt reports vomiting x1 overnight and nausea throughout. Pt also reports mild right ankle and abdominal pain. Pt also wants Nexium from home. Pt said she has been taking Nexium as instructed from her private GI Dr. Coley for gastritis. Per RN pt lost her IV access. No other complaints. Objective - Vital Signs/Intake and Output Vital Signs (last 24 hours): Temp Pulse Resp BP Pulse Ox 98.2 F 80 20 145/86 95 11/29/16 08:31 11/29/16 08:31 11/29/16 08:31 11/29/16 11:43 11/29/16 08:31 Intake and Output: 11/29/16 11/29/16 06:59 18:59 Intake Total 800 Balance 800 - Medications Medications: Current Medications Calcium Acetate (Phoslo) 667 mg PO BIDCC [facility] Last Admin: 11/29/16 11:45 Dose: 667 mg Furosemide (Lasix) 80 mg PO DAILY [facility] Last Admin: 11/29/16 11:43 Dose: 80 mg Heparin Sodium (Porcine) (Heparin) 5,000 units SC Q12 [facility] Last Admin: 11/29/16 17:20 Dose: Not Given Home Med (Home Med) 1 unit PO DAILY [facility] Dextrose/Sodium Chloride (Dextrose 5%/0.45% Ns 1000 Ml) 1,000 mls @ 50 mls/hr IV .Q20H [facility] Last Admin: 11/28/16 23:58 Dose: 50 mls/hr Tigecycline 50 mg/ Sodium (Chloride) 100 mls @ 100 mls/hr IVPB Q12H [facility] Stop: 12/04/16 23:59 Last Admin: 11/29/16 11:45 Dose: Not Given Insulin Human Regular (Novolin R) 0 unit SC ACHS [facility] PRN Reason: Protocol Last Admin: 11/28/16 11:30 Dose: Not Given Latanoprost (Xalatan Opht) 0 ml OU HS [facility] Last Admin: 11/28/16 23:19 Dose: 2.5 ml Nebivolol (Bystolic) 20 mg PO DAILY [facility] Last Admin: 11/29/16 11:45 Dose: 20 mg Nifedipine (Procardia Xl) 90 mg PO DAILY [facility] Last Admin: 11/29/16 11:43 Dose: 90 mg Pantoprazole Sodium (Protonix Ec Tab) 40 mg PO DAILY [facility] Last Admin: 11/29/16 11:44 Dose: 40 mg Sodium Bicarbonate (Sodium Bicarbonate Tab) 650 mg PO BID [facility] Last Admin: 11/29/16 11:45 Dose: 650 mg - Labs Labs: 11/29/16 17:00 11/29/16 17:00 PT 12.7 SECONDS (9.7-12.2) H 11/27/16 21:57 INR 1.1 11/27/16 21:57 APTT 87 SECONDS (21-34) H D 11/28/16 13:35 - Constitutional Appears: Non-toxic, No Acute Distress - Head Exam Head Exam: NORMOCEPHALIC - Eye Exam Eye Exam: Normal appearance Pupil Exam: NORMAL ACCOMODATION - Respiratory Exam Respiratory Exam: Clear to Ausculation Bilateral, NORMAL BREATHING PATTERN. absent: Rhonchi, Wheezes - Cardiovascular Exam Cardiovascular Exam: REGULAR RHYTHM, +S1, +S2. absent: Gallop, Rubs - GI/Abdominal Exam GI & Abdominal Exam: Soft, Tenderness (epigastric), Normal Bowel Sounds - Extremities Exam Extremities Exam: Pedal Edema - Neurological Exam Neurological Exam: Alert, Awake, Oriented x3 - Psychiatric Exam Psychiatric exam: Normal Mood - Skin Skin Exam: Intact Assessment and Plan - Assessment and Plan (Free Text) Assessment: (1) Metabolic encephalopathy Assessment & Plan: 11/29: Repeat CXR showed no pleural effusion. Pt Afebrile. Abx stopped per Dr. Hubbard. Doppler negative. F/U other studies. Dr. Hubbard of Infectious disease consulted, f/u recs Blood cx, urine cx, urinanalysis, f/u aztrenoam 1 mg IV once r/o cranial bleed -head CT, impression: normal CT of the head narcan 0.4mg IV once morphine was discontinued f/u procalcitonin and lactate urine drug screen r/o hospital acquired pneumonia (patient was hospitalized earlier this month) -Chest xray impression: moderate to severe venous congestion with prominent airspace consolidative changes at the left lung base. Moderate left pleural effusion -order strep, mycoplasma, legionella r/o pulmonary embolism -lung scan-vq nm: low probability for pulmonary embolism -f/u duplex scan of lower extremity artery Status: Acute (2) Acute on chronic renal failure Assessment & Plan: BUN [address] morillo of nephrology consulted, f/u recs renal dose all medications order d5 1/ ns 50 cc/hr hold león/arb/statin/diuretic 2/2 lan Status: Chronic (3) Type 2 diabetes mellitus with diabetic chronic kidney disease Assessment & Plan: D5 1/2 ns 50 cc/hr not possible due to lost IV access accuchecks q achs Status: Chronic (4) CHF (congestive heart failure), NYHA class III Assessment & Plan: Ins and Outs daily weights bystolic 20mg daily, Procardia and Lasix resumed per Dr. Martinez. cardiology consulted, dr. abebe, help appreciated Status: Acute (5) Prophylactic measure Assessment & Plan: protonix 40mg po daily stopped. Will switch to Nexium after daughter bring bottle from home. SCDs pt eval and treat Status: Acute <Arabella Cobian V - Last Filed: 12/01/16 07:27> Objective - Vital Signs/Intake and Output Vital Signs (last 24 hours): Temp Pulse Resp BP Pulse Ox 98 F 73 20 157/84 H 97 12/01/16 04:00 12/01/16 04:18 12/01/16 04:00 12/01/16 04:00 12/01/16 04:00 Intake and Output: 12/01/16 12/01/16 06:59 18:59 Intake Total 100 Balance 100 - Medications Medications: Current Medications Artificial Tears (Artificial Tears) 0 ml OU BID [facility] Last Admin: 11/30/16 17:49 Dose: 1 drop Calcium Acetate (Phoslo) 667 mg PO BIDCC [facility] Last Admin: 11/30/16 17:49 Dose: 667 mg Furosemide (Lasix) 80 mg PO DAILY [facility] Last Admin: 11/30/16 10:41 Dose: 80 mg Heparin Sodium (Porcine) (Heparin) 5,000 units SC Q12 [facility] Last Admin: 11/30/16 21:55 Dose: 5,000 units Home Med (Home Med) 1 unit PO DAILY [facility] Home Med (Brinzolamide/Brimonidine Tart [Simbrinza 1%-0.2% Eye Drops]) 1 drop BOTHEYES BID [facility] Last Admin: 11/30/16 17:52 Dose: Not Given Home Med (Bromfenac Sodium [Prolensa]) 1 drop OD DAILY [facility] Last Admin: 11/30/16 15:00 Dose: Not Given Home Med (Difluprednate [Durezol]) 1 drop OD TID [facility] Last Admin: 11/30/16 17:52 Dose: Not Given Home Med (Esomeprazole Magnesium [Nexium]) 40 mg PO DAILY [facility] Dextrose/Sodium Chloride (Dextrose 5%/0.45% Ns 1000 Ml) 1,000 mls @ 50 mls/hr IV .Q20H [facility] Last Admin: 11/30/16 14:00 Dose: Not Given Insulin Human Regular (Novolin R) 0 unit SC ACHS [facility] PRN Reason: Protocol Last Admin: 11/28/16 11:30 Dose: Not Given Latanoprost (Xalatan Opht) 0 ml OU HS [facility] Last Admin: 11/30/16 21:55 Dose: 2.5 ml Nebivolol (Bystolic) 20 mg PO DAILY [facility] Last Admin: 11/30/16 10:42 Dose: 20 mg Nifedipine (Procardia Xl) 90 mg PO DAILY [facility] Last Admin: 11/30/16 10:41 Dose: 90 mg Sodium Bicarbonate (Sodium Bicarbonate Tab) 650 mg PO BID [facility] Last Admin: 11/30/16 17:49 Dose: 650 mg - Labs Labs: 11/30/16 08:21 11/30/16 08:21 PT 12.7 SECONDS (9.7-12.2) H 11/27/16 21:57 INR 1.1 11/27/16 21:57 APTT 87 SECONDS (21-34) H D 11/28/16 13:35 Attending/Attestation - Attestation I have personally seen and examined this patient.: Yes I have fully participated in the care of the patient.: Yes I have reviewed all pertinent clinical information, including history, physical exam and plan: Yes Notes (Text): This is late computer entry for 11/29/16. Patient seen, examined and case discussed with day-time resident. Patient seen in the morning. Nursing has attempted multiple IV access over the right upper extremity unable to get one. Patient herself is more awake, alert, compared to yesterday but upset given the multiple peripheral IV attempts. Per nephrology, patient refused dialysis, f/u renal US, restart Procardia, Lasix Per cardiology, recommend for stress test given complaints of intermittent chest pain Assessment/Plan (1) Metabolic encephalopathy Assessment & Plan: * Dr. Hubbard of Infectious disease consulted, f/u recs * Ordered for Blood cx, urine cx, urinanalysis, f/u * aztrenoam 1 mg IV once given patient's extensive allergies and concern for possible hospital acquired pneumonia * head CT (11/28/16): normal CT of the head * Narcotic and benzos discontinued given altered mental status and lethargy; ordered for narcan 0.4mg IV once given patient was on narcotic medications post- hospitalization * f/u procalcitonin and lactate * urine drug screen * Chest xray: moderate to severe venous congestion with prominent airspace consolidative changes at the left lung base. Moderate left pleural effusion; order strep, mycoplasma, legionella * Elevated d-dimer: lung scan-vq nm: low probability for pulmonary embolism; f/ u duplex scan of lower extremity artery:prelim read is negative; heparin drip stopped Status: Acute (2) Acute on chronic renal failure Assessment & Plan: * Dr. Morillo (nephrology) on board-->help appreciated * monito BUN/Cr * Nephrology to determine if patient needs dialysis or not; no hyperkalemia, metabolic acidosis; increased BUN/Cr * renal dose all medications * order d5 1/2 ns 50 cc/hr * hold león/arb/statin/diuretic 2/2 acute on chronic renal insuffiency Status: Chronic (3) Type 2 diabetes mellitus with diabetic chronic kidney disease Assessment & Plan: * D5 1/2 ns 50 cc/hr * accuchecks q achs Status: Chronic (4) CHF (congestive heart failure), NYHA class III Assessment & Plan: Ins and Outs daily weights bystolic 20mg daily cardiology consulted, dr. abebe, help appreciated Restart Procardia and Lasix per nephrology held arb/león/statin/diuretic given patients acute on chronic renal insuffiency held aspirin until CT head r/o bleed given altered mental status this morning Satus: Acute (5) Prophylactic measure Assessment & Plan: protonix 40mg po daily-->patient prefers Nexium, will restart in hospital when daughter brings in SCDs pt eval and treat Status: Acute
--- NOTE | 2016-11-29 22:11 | CP.PCM.PN ---
Subjective - Date & Time of Evaluation Date of Evaluation: 11/29/16 Time of Evaluation: 20:05 - Subjective Subjective: Patient seen and evaluated Patient still has some nausea but better c/w this afternoon No chest pain now Review of Systems - Constitutional Constitutional: absent: Chills, Fever - EENT Eyes: absent: Blurred Vision, Change in Vision - Cardiovascular Cardiovascular: Chest Pain, Chest Pain at Rest, Pedal Edema. absent: Palpitations, Syncope - Respiratory Respiratory: absent: Cough, Dyspnea, Dyspnea on Exertion - Gastrointestinal Gastrointestinal: absent: Abdominal Pain, Constipation, Diarrhea, Nausea, Vomiting - Genitourinary Genitourinary: Voiding Freq/Small Amts. absent: Dysuria, Hematuria - Musculoskeletal Musculoskeletal: Muscle Cramps, Muscle Weakness, Stiffness Additional comments: Lower chronic back pain, pain in left foot Meds Allergies/Adverse Reactions: Allergies Allergy/AdvReac Type Severity Reaction Status Date / Time codeine Allergy ITCHING Verified 11/27/16 21:38 Iodine and Iodide Containing Allergy ITCHING Verified 11/27/16 21:38 Produc Penicillins Allergy RASH Verified 11/27/16 21:38 Sulfa (Sulfonamide Allergy RASH Verified 11/27/16 21:38 Antibiotics) vancomycin Allergy RASH Verified 11/27/16 21:38 seafood Allergy RASH Uncoded 11/27/16 21:38 Physical Exam - Constitutional Appears: Non-toxic, No Acute Distress, Chronically Ill - Head Exam Head Exam: ATRAUMATIC, NORMAL INSPECTION - Eye Exam Eye Exam: EOMI, Normal appearance, PERRL Pupil Exam: NORMAL ACCOMODATION - ENT Exam ENT Exam: Mucous Membranes Moist - Respiratory Exam Respiratory Exam: Clear to Auscultation Bilateral, Rales, NORMAL BREATHING PATTERN. absent: Respiratory Distress - Cardiovascular Exam Cardiovascular Exam: REGULAR RHYTHM, +S1, +S2, Systolic Murmur - GI/Abdominal Exam GI & Abdominal Exam: Normal Bowel Sounds, Nausea - Extremities Exam Extremities exam: Positive for: normal inspection, pedal edema. Negative for: calf tenderness - Back Exam Back exam: NORMAL INSPECTION. absent: CVA tenderness (L), CVA tenderness (R), paraspinal tenderness - Neurological Exam Neurological exam: Alert, Oriented x3 - Psychiatric Exam Psychiatric exam: Flat Affect, Normal Affect, Normal Mood - Skin Skin Exam: Dry, Intact, Normal Color, Warm Objective - Vital Signs/Intake and Output Vital Signs (last 24 hours): Temp Pulse Resp BP Pulse Ox 98.2 F 80 20 156/81 H 97 11/29/16 19:53 11/29/16 19:53 11/29/16 19:53 11/29/16 19:53 11/29/16 19:53 - Medications Medications: Current Medications Calcium Acetate (Phoslo) 667 mg PO BIDCC [facility] Last Admin: 11/29/16 17:47 Dose: 667 mg Furosemide (Lasix) 80 mg PO DAILY [facility] Last Admin: 11/29/16 11:43 Dose: 80 mg Heparin Sodium (Porcine) (Heparin) 5,000 units SC Q12 [facility] Last Admin: 11/29/16 17:20 Dose: Not Given Home Med (Home Med) 1 unit PO DAILY [facility] Dextrose/Sodium Chloride (Dextrose 5%/0.45% Ns 1000 Ml) 1,000 mls @ 50 mls/hr IV .Q20H [facility] Last Admin: 11/29/16 17:49 Dose: Not Given Insulin Human Regular (Novolin R) 0 unit SC ACHS [facility] PRN Reason: Protocol Last Admin: 11/28/16 11:30 Dose: Not Given Latanoprost (Xalatan Opht) 0 ml OU HS [facility] Last Admin: 11/28/16 23:19 Dose: 2.5 ml Nebivolol (Bystolic) 20 mg PO DAILY [facility] Last Admin: 11/29/16 11:45 Dose: 20 mg Nifedipine (Procardia Xl) 90 mg PO DAILY [facility] Last Admin: 11/29/16 11:43 Dose: 90 mg Sodium Bicarbonate (Sodium Bicarbonate Tab) 650 mg PO BID [facility] Last Admin: 11/29/16 17:47 Dose: 650 mg - Labs Labs: 11/29/16 17:00 11/29/16 17:00 PT 12.7 SECONDS (9.7-12.2) H 11/27/16 21:57 INR 1.1 11/27/16 21:57 APTT 87 SECONDS (21-34) H D 11/28/16 13:35 Assessment and Plan - Assessment and Plan (Free Text) Assessment: Patient with multiple risk factors On and off chest pain Trops negative ECHO normal EF Stress test ordered for Thursday D/ patient
[2016-11-29] MEDS: Latanoprost 2.5 ml Opht Soln OU SCH (22:55)
[2016-11-30 04:57] LABS: TOTAL PROTEIN, SERUM 6.9 g/dL (6.1-8.1)
[2016-11-30 08:31] LABS: BASO % 0.5 % (0.0-2.0); EOS # 0.3 K/uL (0.0-0.7); EOS % 3.9 % (0.0-4.0); HEMATOCRIT 30.5 % (34.0-47.0); LYMPH # 2.1 K/uL (1.0-4.3); LYMPH % 32.3 % (20.0-40.0); MEAN CELL VOLUME 86.9 fL (81.0-99.0); MEAN CORPUSCULAR HEMOGLOBIN 28.2 pg (27.0-31.0); MEAN CORPUSCULAR HGB CONC 32.5 g/dL (33.0-37.0); MEAN PLATELET VOLUME 8.8 fL (7.2-11.7); MONO # 0.6 K/uL (0.0-0.8); MONO % 9.8 % (0.0-10.0); RED CELL DISTRIBUTION WIDTH 13.4 % (11.5-14.5); WHITE BLOOD COUNT 6.5 K/uL (4.8-10.8)
[2016-11-30 08:39] LABS: POTASSIUM 4.5 mmol/L (3.6-5.2)
[2016-11-30 08:41] LABS: ALB/GLOB RATIO 0.9 (1.0-2.1); BILIRUBIN,TOTAL 0.6 mg/dL (0.2-1.3); TOTAL PROTEIN 7.6 g/dL (6.3-8.3)
[2016-11-30] MEDS: NIFEdipine 90 mg ER Tab PO SCH (10:41)
[2016-11-30] MEDS: Aritificial Tears (15ml) OU SCH ×2 (11:00→17:49)
[2016-11-30] MEDS: Dextrose 5%/0.45% NS 1,000 ML IV SCH (14:00)
[2016-11-30] MEDS: DIFLUPREDNATE OD SCH ×2 (15:00→17:52)
[2016-11-30] MEDS: BROMFENAC SODIUM OD SCH (15:00)
--- NOTE | 2016-11-30 15:54 | CP.PCM.PN ---
<Paul Oliveira - Last Filed: 11/30/16 15:42> Subjective - Date & Time of Evaluation Date of Evaluation: 11/30/16 Time of Evaluation: 09:00 - Subjective Subjective: PGY3 on medicine Dr. Cobian service: Pt seen and examined at bedside this morning. Pt reports feeling better today but still nauseas. No acute complaints at the moment. No acute events overnight. Objective - Vital Signs/Intake and Output Vital Signs (last 24 hours): Temp Pulse Resp BP Pulse Ox 98.1 F 70 20 161/90 H 97 11/30/16 09:54 11/30/16 09:54 11/30/16 09:54 11/30/16 10:41 11/30/16 09:54 Intake and Output: 11/30/16 11/30/16 06:59 18:59 Intake Total 300 Balance 300 - Medications Medications: Current Medications Artificial Tears (Artificial Tears) 0 ml OU BID [facility] Last Admin: 11/30/16 11:00 Dose: 1 drop Calcium Acetate (Phoslo) 667 mg PO BIDCC [facility] Last Admin: 11/30/16 09:00 Dose: Not Given Furosemide (Lasix) 80 mg PO DAILY [facility] Last Admin: 11/30/16 10:41 Dose: 80 mg Heparin Sodium (Porcine) (Heparin) 5,000 units SC Q12 [facility] Last Admin: 11/30/16 10:39 Dose: 5,000 units Home Med (Home Med) 1 unit PO DAILY [facility] Home Med (Brinzolamide/Brimonidine Tart [Simbrinza 1%-0.2% Eye Drops]) 1 drop BOTHEYES BID [facility] Home Med (Bromfenac Sodium [Prolensa]) 1 drop OD DAILY [facility] Home Med (Difluprednate [Durezol]) 1 drop OD TID [facility] Home Med (Esomeprazole Magnesium [Nexium]) 40 mg PO DAILY [facility] Dextrose/Sodium Chloride (Dextrose 5%/0.45% Ns 1000 Ml) 1,000 mls @ 50 mls/hr IV .Q20H [facility] Last Admin: 11/29/16 17:49 Dose: Not Given Insulin Human Regular (Novolin R) 0 unit SC ACHS [facility] PRN Reason: Protocol Last Admin: 11/28/16 11:30 Dose: Not Given Latanoprost (Xalatan Opht) 0 ml OU HS [facility] Last Admin: 11/29/16 22:55 Dose: 2.5 ml Nebivolol (Bystolic) 20 mg PO DAILY [facility] Last Admin: 11/30/16 10:42 Dose: 20 mg Nifedipine (Procardia Xl) 90 mg PO DAILY [facility] Last Admin: 11/30/16 10:41 Dose: 90 mg Sodium Bicarbonate (Sodium Bicarbonate Tab) 650 mg PO BID [facility] Last Admin: 11/30/16 10:40 Dose: 650 mg - Labs Labs: 11/30/16 08:21 11/30/16 08:21 PT 12.7 SECONDS (9.7-12.2) H 11/27/16 21:57 INR 1.1 11/27/16 21:57 APTT 87 SECONDS (21-34) H D 11/28/16 13:35 - Constitutional Appears: Non-toxic, No Acute Distress, Other (obese) - Head Exam Head Exam: NORMOCEPHALIC - Eye Exam Eye Exam: Normal appearance Pupil Exam: NORMAL ACCOMODATION - ENT Exam ENT Exam: Mucous Membranes Moist - Respiratory Exam Respiratory Exam: Clear to Ausculation Bilateral, NORMAL BREATHING PATTERN. absent: Rhonchi, Wheezes - Cardiovascular Exam Cardiovascular Exam: REGULAR RHYTHM, +S1, +S2. absent: Gallop, Rubs - GI/Abdominal Exam GI & Abdominal Exam: Soft, Tenderness (mild epigastric, improving), Normal Bowel Sounds - Neurological Exam Neurological Exam: Alert, Awake, Oriented x3 - Psychiatric Exam Psychiatric exam: Normal Mood - Skin Skin Exam: Intact Assessment and Plan - Assessment and Plan (Free Text) Plan: CHF (congestive heart failure), NYHA class III Assessment & Plan: 11/30: NPO for stress test tomorrow with Dr. Cronin. Ins and Outs daily weights bystolic 20mg daily, Procardia and Lasix resumed per Dr. Martinez. cardiology consulted, dr. cronin, help appreciated Status: Acute Metabolic encephalopathy Assessment & Plan: 11/29: Repeat CXR showed no pleural effusion. Pt Afebrile. Abx stopped per Dr. Hubbard. Doppler negative. F/U other studies. Dr. Hubbard of Infectious disease consulted, f/u recs Blood cx, urine cx, urinanalysis, f/u aztrenoam 1 mg IV once r/o cranial bleed -head CT, impression: normal CT of the head narcan 0.4mg IV once morphine was discontinued f/u procalcitonin and lactate urine drug screen r/o hospital acquired pneumonia (patient was hospitalized earlier this month) -Chest xray impression: moderate to severe venous congestion with prominent airspace consolidative changes at the left lung base. Moderate left pleural effusion -order strep, mycoplasma, legionella r/o pulmonary embolism -lung scan-vq nm: low probability for pulmonary embolism -f/u duplex scan of lower extremity artery Status: Acute Acute on chronic renal failure Assessment & Plan: BUN [address] rush of nephrology consulted, f/u recs renal dose all medications order d5 1/2 ns 50 cc/hr hold león/arb/statin/diuretic 2/2 lan Status: Chronic Type 2 diabetes mellitus with diabetic chronic kidney disease Assessment & Plan: D5 1/2 ns 50 cc/hr not possible due to lost IV access accuchecks q achs Status: Chronic Prophylactic measure Assessment & Plan: protonix 40mg po daily stopped. Will switch to Nexium after daughter bring bottle from home. SCDs pt eval and treat Status: Acute <Arabella Cobian V - Last Filed: 12/01/16 07:14> Objective - Vital Signs/Intake and Output Vital Signs (last 24 hours): Temp Pulse Resp BP Pulse Ox 98 F 73 20 157/84 H 97 12/01/16 04:00 12/01/16 04:18 12/01/16 04:00 12/01/16 04:00 12/01/16 04:00 Intake and Output: 12/01/16 12/01/16 06:59 18:59 Intake Total 100 Balance 100 - Medications Medications: Current Medications Artificial Tears (Artificial Tears) 0 ml OU BID [facility] Last Admin: 11/30/16 17:49 Dose: 1 drop Calcium Acetate (Phoslo) 667 mg PO BIDCC [facility] Last Admin: 11/30/16 17:49 Dose: 667 mg Furosemide (Lasix) 80 mg PO DAILY [facility] Last Admin: 11/30/16 10:41 Dose: 80 mg Heparin Sodium (Porcine) (Heparin) 5,000 units SC Q12 [facility] Last Admin: 11/30/16 21:55 Dose: 5,000 units Home Med (Home Med) 1 unit PO DAILY [facility] Home Med (Brinzolamide/Brimonidine Tart [Simbrinza 1%-0.2% Eye Drops]) 1 drop BOTHEYES BID [facility] Last Admin: 11/30/16 17:52 Dose: Not Given Home Med (Bromfenac Sodium [Prolensa]) 1 drop OD DAILY [facility] Last Admin: 11/30/16 15:00 Dose: Not Given Home Med (Difluprednate [Durezol]) 1 drop OD TID [facility] Last Admin: 11/30/16 17:52 Dose: Not Given Home Med (Esomeprazole Magnesium [Nexium]) 40 mg PO DAILY [facility] Dextrose/Sodium Chloride (Dextrose 5%/0.45% Ns 1000 Ml) 1,000 mls @ 50 mls/hr IV .Q20H [facility] Last Admin: 11/30/16 14:00 Dose: Not Given Insulin Human Regular (Novolin R) 0 unit SC ACHS [facility] PRN Reason: Protocol Last Admin: 11/28/16 11:30 Dose: Not Given Latanoprost (Xalatan Opht) 0 ml OU HS [facility] Last Admin: 11/30/16 21:55 Dose: 2.5 ml Nebivolol (Bystolic) 20 mg PO DAILY [facility] Last Admin: 11/30/16 10:42 Dose: 20 mg Nifedipine (Procardia Xl) 90 mg PO DAILY [facility] Last Admin: 11/30/16 10:41 Dose: 90 mg Sodium Bicarbonate (Sodium Bicarbonate Tab) 650 mg PO BID [facility] Last Admin: 11/30/16 17:49 Dose: 650 mg - Labs Labs: 11/30/16 08:21 11/30/16 08:21 PT 12.7 SECONDS (9.7-12.2) H 11/27/16 21:57 INR 1.1 11/27/16 21:57 APTT 87 SECONDS (21-34) H D 11/28/16 13:35 Attending/Attestation - Attestation I have personally seen and examined this patient.: Yes I have fully participated in the care of the patient.: Yes I have reviewed all pertinent clinical information, including history, physical exam and plan: Yes Notes (Text): This is late computer entry for 11/30/16. Patient seen, examined and case discussed with day-time resident. Patient is clinically improving; still upright; speaking, awake and alert. Patient eating breakfast at bedside. Patient denies chest pain, reports nausea is improved. Patient is setup for stress test tomorrow. Patient reports significant family history of cardiac problems including her younger brother who about 2 months from a heart attack. Patient admits she is worried and scared. Her only living relative is her daughter who she is extremely close to and wants to do everything possible. Patient is sensitive to narcotic medication will make her very drowsy and allergic to benadryl. Patient initially refused dialysis. Her mother was setup for dialysis but was killed in a car accident about 8 years ago. Patient has significant social and emotional stressors. Pastoral care consult. Unlikely altered mental status was due to infection, likely due to narcotic medication Assessment/Plan CHF (congestive heart failure), NYHA class III Assessment & Plan: Cardiology (Dr. Cronin) on consult Nephrology (Dr. Barrios) on consult 11/30: NPO for stress test tomorrow with Dr. Cronin. Ins and Outs daily weights bystolic 20mg PO daily, Procardia 90mg XL PO daily and Lasix resumed per Dr. Martinez. Held león and arb secondary to renal insuffiency Status: Acute Metabolic encephalopathy Assessment & Plan: Infectious Disease (Dr. Hubbard) on board-->help appreciated 11/29: Repeat CXR showed no pleural effusion. Pt Afebrile. Abx stopped per Dr. Hubbard. Doppler negative. F/U other studies. Chest xray impression: moderate to severe venous congestion with prominent airspace consolidative changes at the left lung base. Moderate left pleural effusion order strep, mycoplasma, legionella-->pending Blood culture (11/27/16): negative X 48 hours Urine culture (11/29/16): pending speciation; 10,000-50,000 CFU; ordered for repeat urine culture aztrenoam 1 mg IV once on 11/28/[address] (11/28/16): normal Patient is negative for PE/DVT; heparin drip stopped Patient on significant narcotic at rehab and Morphine. Discontinued. Given narcan on 11/28/16 which help reduced lethargy significant. Be careful with narcotic medications with patient procalcitonin 0.16 (low) and lactate: 1.1 urine drug screen: negative Status: Acute Acute on chronic renal failure Assessment & Plan: Monitor BUN/CR Patient has refused dialysis initially on Thursday Dr rush of nephrology consulted, f/u recs renal dose all medications order d5 06/09 ns 50 cc/hr-->IV access lost held león/arb/statin/diuretic secondary to renal insuffiency Status: Chronic Type 2 diabetes mellitus with diabetic chronic kidney disease Assessment & Plan: D5 / ns 50 cc/hr not possible due to lost IV access accuchecks q achs Status: Chronic Prophylactic measure Assessment & Plan: protonix 40mg po daily stopped. Will switch to Nexium after daughter bring bottle from home. SCDs pt eval and treat Status: Acute
[2016-11-30] MEDS: BRINZOLAMIDE BOTHEYES SCH (17:52)
[2016-11-30] MEDS: BRIMONIDINE TART BOTHEYES SCH (17:52)
--- NOTE | 2016-11-30 17:55 | CP.PCM.PN ---
Subjective - Date & Time of Evaluation Date of Evaluation: 11/30/16 Time of Evaluation: 14:00 - Subjective Subjective: Patient seen and evaluated Feels better today For stress test tomorrow Review of Systems - Constitutional Constitutional: absent: Chills, Fever - EENT Eyes: absent: Blurred Vision, Change in Vision - Cardiovascular Cardiovascular: Chest Pain, Chest Pain at Rest, Pedal Edema. absent: Palpitations, Syncope - Respiratory Respiratory: absent: Cough, Dyspnea, Dyspnea on Exertion - Gastrointestinal Gastrointestinal: absent: Abdominal Pain, Constipation, Diarrhea, Nausea, Vomiting - Genitourinary Genitourinary: Voiding Freq/Small Amts. absent: Dysuria, Hematuria - Musculoskeletal Musculoskeletal: Muscle Cramps, Muscle Weakness, Stiffness Additional comments: Lower chronic back pain, pain in left foot Physical Exam - Constitutional Appears: Non-toxic, No Acute Distress, Chronically Ill - Head Exam Head Exam: ATRAUMATIC, NORMAL INSPECTION - Eye Exam Eye Exam: EOMI, Normal appearance, PERRL Pupil Exam: NORMAL ACCOMODATION - ENT Exam ENT Exam: Mucous Membranes Moist - Respiratory Exam Respiratory Exam: Clear to Auscultation Bilateral, Rales, NORMAL BREATHING PATTERN. absent: Respiratory Distress - Cardiovascular Exam Cardiovascular Exam: REGULAR RHYTHM, +S1, +S2, Systolic Murmur - GI/Abdominal Exam GI & Abdominal Exam: Normal Bowel Sounds, Nausea - Extremities Exam Extremities exam: Positive for: normal inspection, pedal edema. Negative for: calf tenderness - Back Exam Back exam: NORMAL INSPECTION. absent: CVA tenderness (L), CVA tenderness (R), paraspinal tenderness - Neurological Exam Neurological exam: Alert, Oriented x3 - Psychiatric Exam Psychiatric exam: Flat Affect, Normal Affect, Normal Mood - Skin Skin Exam: Dry, Intact, Normal Color, Warm Objective - Vital Signs/Intake and Output Vital Signs (last 24 hours): Temp Pulse Resp BP Pulse Ox 98.7 F 77 20 181/82 H 97 11/30/16 15:00 11/30/16 15:00 11/30/16 15:00 11/30/16 15:00 11/30/16 15:00 Intake and Output: 11/30/16 11/30/16 06:59 18:59 Intake Total 300 Balance 300 - Medications Medications: Current Medications Artificial Tears (Artificial Tears) 0 ml OU BID [facility] Last Admin: 11/30/16 17:49 Dose: 1 drop Calcium Acetate (Phoslo) 667 mg PO BIDCC [facility] Last Admin: 11/30/16 17:49 Dose: 667 mg Furosemide (Lasix) 80 mg PO DAILY [facility] Last Admin: 11/30/16 10:41 Dose: 80 mg Heparin Sodium (Porcine) (Heparin) 5,000 units SC Q12 [facility] Last Admin: 11/30/16 10:39 Dose: 5,000 units Home Med (Home Med) 1 unit PO DAILY [facility] Home Med (Brinzolamide/Brimonidine Tart [Simbrinza 1%-0.2% Eye Drops]) 1 drop BOTHEYES BID [facility] Last Admin: 11/30/16 17:52 Dose: Not Given Home Med (Bromfenac Sodium [Prolensa]) 1 drop OD DAILY [facility] Last Admin: 11/30/16 15:00 Dose: Not Given Home Med (Difluprednate [Durezol]) 1 drop OD TID [facility] Last Admin: 11/30/16 17:52 Dose: Not Given Home Med (Esomeprazole Magnesium [Nexium]) 40 mg PO DAILY [facility] Dextrose/Sodium Chloride (Dextrose 5%/0.45% Ns 1000 Ml) 1,000 mls @ 50 mls/hr IV .Q20H [facility] Last Admin: 11/30/16 14:00 Dose: Not Given Insulin Human Regular (Novolin R) 0 unit SC ACHS [facility] PRN Reason: Protocol Last Admin: 11/28/16 11:30 Dose: Not Given Latanoprost (Xalatan Opht) 0 ml OU HS [facility] Last Admin: 11/29/16 22:55 Dose: 2.5 ml Nebivolol (Bystolic) 20 mg PO DAILY [facility] Last Admin: 11/30/16 10:42 Dose: 20 mg Nifedipine (Procardia Xl) 90 mg PO DAILY [facility] Last Admin: 11/30/16 10:41 Dose: 90 mg Sodium Bicarbonate (Sodium Bicarbonate Tab) 650 mg PO BID [facility] Last Admin: 11/30/16 17:49 Dose: 650 mg - Labs Labs: 11/30/16 08:21 11/30/16 08:21 PT 12.7 SECONDS (9.7-12.2) H 11/27/16 21:57 INR 1.1 11/27/16 21:57 APTT 87 SECONDS (21-34) H D 11/28/16 13:35 Assessment and Plan - Assessment and Plan (Free Text) Assessment: Chest Pain Assessment & Plan: 11/30: NPO for stress test tomorrow with Dr. Cronin. Acute on chronic renal failure Assessment & Plan: BUN [address] rush of nephrology consulted, f/u recs renal dose all medications order d5 1/2 ns 50 cc/hr hold león/arb/statin/diuretic 2/2 lan Status: Chronic Type 2 diabetes mellitus with diabetic chronic kidney disease Assessment & Plan: D5 1/2 ns 50 cc/hr not possible due to lost IV access accuchecks q achs Status: Chronic Prophylactic measure Assessment & Plan: protonix 40mg po daily stopped. Will switch to Nexium after daughter bring bottle from home. SCDs pt eval and treat Status: Acute
[2016-11-30] MEDS ORDERED: Oxycodone/Acetaminophen 5/325 mg Tab PO STA (20:54)
[2016-11-30] MEDS: Latanoprost 2.5 ml Opht Soln OU SCH (21:55)
[2016-11-30] MEDS ORDERED: Oxycodone/Acetaminophen 5/325 mg Tab PO ONE (21:55)
[2016-12-01] MEDS ORDERED: Oxycodone/Acetaminophen 5/325 mg Tab PO STA (02:06)
[2016-12-01] MEDS ORDERED: Aminophylline 25 mg/ml Inj ONE (07:42)
[2016-12-01 08:32] LABS: BASO % 0.5 % (0.0-2.0); EOS # 0.2 K/uL (0.0-0.7); EOS % 2.8 % (0.0-4.0); HEMATOCRIT 29.9 % (34.0-47.0); LYMPH # 2.4 K/uL (1.0-4.3); LYMPH % 33.8 % (20.0-40.0); MEAN CELL VOLUME 86.5 fL (81.0-99.0); MEAN CORPUSCULAR HEMOGLOBIN 28.5 pg (27.0-31.0); MEAN CORPUSCULAR HGB CONC 32.9 g/dL (33.0-37.0); MEAN PLATELET VOLUME 8.8 fL (7.2-11.7); MONO # 0.6 K/uL (0.0-0.8); MONO % 8.7 % (0.0-10.0); NRBC % 0.1 % (0.0-2.0); RED CELL DISTRIBUTION WIDTH 13.1 % (11.5-14.5)
[2016-12-01 08:51] LABS: POTASSIUM 4.6 mmol/L (3.6-5.2)
[2016-12-01 08:53] LABS: ALB/GLOB RATIO 0.9 (1.0-2.1); BILIRUBIN,TOTAL 0.5 mg/dL (0.2-1.3); TOTAL PROTEIN 7.7 g/dL (6.3-8.3)
[2016-12-01] MEDS: DIFLUPREDNATE OD SCH ×2 (10:00→14:28)
[2016-12-01] MEDS: Aritificial Tears (15ml) OU SCH ×3 (10:00→17:47)
[2016-12-01] MEDS: BRINZOLAMIDE BOTHEYES SCH (10:00)
[2016-12-01] MEDS: BROMFENAC SODIUM OD SCH (10:00)
[2016-12-01] MEDS: BRIMONIDINE TART BOTHEYES SCH (10:00)
[2016-12-01 11:56] LABS: BETA 1 GLOBULIN 0.4 g/dL (0.4-0.6); BETA 2 GLOBULIN 0.6 g/dL (0.2-0.5); GAMMA GLOBULIN 1.6 g/dL (0.8-1.7)
--- NOTE | 2016-12-01 12:47 | CP.PCM.PN ---
Subjective - Date & Time of Evaluation Date of Evaluation: 12/01/16 Time of Evaluation: 12:45 - Subjective Subjective: Undergoing stress test; awaiting results Creat stable at 4.1 Has not considered TRIAGE RN BP controlled Objective - Vital Signs/Intake and Output Vital Signs (last 24 hours): Temp Pulse Resp BP Pulse Ox 98.4 F 73 18 149/81 97 12/01/16 07:40 12/01/16 07:40 12/01/16 07:40 12/01/16 07:40 12/01/16 07:40 Intake and Output: 12/01/16 12/01/16 06:59 18:59 Intake Total 100 Balance 100 - Medications Medications: Current Medications Artificial Tears (Artificial Tears) 0 ml OU BID [facility] Last Admin: 12/01/16 10:00 Dose: Not Given Calcium Acetate (Phoslo) 667 mg PO BIDCC [facility] Last Admin: 12/01/16 08:00 Dose: Not Given Furosemide (Lasix) 80 mg PO DAILY [facility] Last Admin: 11/30/16 10:41 Dose: 80 mg Heparin Sodium (Porcine) (Heparin) 5,000 units SC Q12 [facility] Last Admin: 11/30/16 21:55 Dose: 5,000 units Home Med (Home Med) 1 unit PO DAILY [facility] Home Med (Brinzolamide/Brimonidine Tart [Simbrinza 1%-0.2% Eye Drops]) 1 drop BOTHEYES BID [facility] Last Admin: 12/01/16 10:00 Dose: Not Given Home Med (Bromfenac Sodium [Prolensa]) 1 drop OD DAILY [facility] Last Admin: 12/01/16 10:00 Dose: Not Given Home Med (Difluprednate [Durezol]) 1 drop OD TID [facility] Last Admin: 11/30/16 17:52 Dose: Not Given Home Med (Esomeprazole Magnesium [Nexium]) 40 mg PO DAILY [facility] Dextrose/Sodium Chloride (Dextrose 5%/0.45% Ns 1000 Ml) 1,000 mls @ 50 mls/hr IV .Q20H [facility] Last Admin: 11/30/16 14:00 Dose: Not Given Insulin Human Regular (Novolin R) 0 unit SC ACHS [facility] PRN Reason: Protocol Last Admin: 11/28/16 11:30 Dose: Not Given Latanoprost (Xalatan Opht) 0 ml OU HS [facility] Last Admin: 11/30/16 21:55 Dose: 2.5 ml Nebivolol (Bystolic) 20 mg PO DAILY [facility] Last Admin: 11/30/16 10:42 Dose: 20 mg Nifedipine (Procardia Xl) 90 mg PO DAILY [facility] Last Admin: 11/30/16 10:41 Dose: 90 mg Sodium Bicarbonate (Sodium Bicarbonate Tab) 650 mg PO BID [facility] Last Admin: 11/30/16 17:49 Dose: 650 mg - Labs Labs: 12/01/16 08:19 12/01/16 08:19 PT 12.7 SECONDS (9.7-12.2) H 11/27/16 21:57 INR 1.1 11/27/16 21:57 APTT 87 SECONDS (21-34) H D 11/28/16 13:35 - Constitutional Appears: No Acute Distress, Chronically Ill - Head Exam Head Exam: ATRAUMATIC, NORMAL INSPECTION - Eye Exam Eye Exam: EOMI, Normal appearance - Neck Exam Neck Exam: Normal Inspection. absent: Tenderness - Respiratory Exam Respiratory Exam: Clear to Ausculation Bilateral, NORMAL BREATHING PATTERN - Cardiovascular Exam Cardiovascular Exam: REGULAR RHYTHM, +S1 - GI/Abdominal Exam GI & Abdominal Exam: Soft. absent: Tenderness - Extremities Exam Extremities Exam: Pedal Edema, Tenderness - Neurological Exam Neurological Exam: Awake, CN II-XII Intact - Skin Skin Exam: Dry, Warm Assessment and Plan (1) CKD (chronic kidney disease) stage 5, GFR less than 15 ml/min Status: Acute (2) Proteinuria Status: Acute (3) Type 2 diabetes mellitus with diabetic chronic kidney disease Status: Chronic - Assessment and Plan (Free Text) Plan: Await results of EST Discuss with patient about TRIAGE RN
[2016-12-01] MEDS: NIFEdipine 90 mg ER Tab PO SCH (14:26)
[2016-12-01] MEDS: Aluminum Hydroxide/Magnesium Hydroxide Susp (30 mL) PO SCH (17:02)
--- NOTE | 2016-12-01 18:31 | CP.PCM.PN ---
Subjective - Date & Time of Evaluation Date of Evaluation: 12/01/16 Time of Evaluation: 09:00 - Subjective Subjective: Patient was seen at bedside. Patient was not in acute distress. Patient was npo due to stress test today. Patient complained of pain in right foot. Patient stated she vomited x1 last night after taking her percocet. She complains of feeling nauseous and headaches. She complains of diffuse abdominal pain. She denied chest pain, shortness of breath, cough, bleeding, fevers, chills. Objective - Vital Signs/Intake and Output Vital Signs (last 24 hours): Temp Pulse Resp BP Pulse Ox 98 F 81 20 180/89 H 97 12/01/16 16:00 12/01/16 16:00 12/01/16 16:00 12/01/16 16:00 12/01/16 16:00 Intake and Output: 12/01/16 12/01/16 06:59 18:59 Intake Total 100 Balance 100 - Medications Medications: Current Medications Al Hydrox/Mg Hydrox/Simethicone (Maalox 30 Ml) 30 ml PO DAILY [facility] Last Admin: 12/01/16 17:02 Dose: 30 ml Artificial Tears (Artificial Tears) 0 ml OU BID [facility] Last Admin: 12/01/16 17:47 Dose: 1 drop [facility] Last Admin: 12/01/16 17:02 Dose: 667 mg Cyclobenzaprine HCl (Flexeril) 2.5 mg PO TID [facility] Last Admin: 12/01/16 17:49 Dose: Not Given Escitalopram Oxalate (Lexapro) 5 mg PO DAILY [facility] Last Admin: 12/01/16 17:00 Dose: 5 mg Famotidine (Pepcid) 20 mg PO DAILY [facility] Last Admin: 12/01/16 16:58 Dose: 20 mg Furosemide (Lasix) 80 mg PO DAILY [facility] Last Admin: 12/01/16 14:26 Dose: 80 mg Gabapentin (Neurontin) 100 mg PO TID [facility] Last Admin: 12/01/16 17:38 Dose: 100 mg Heparin Sodium (Porcine) (Heparin) 5,000 units SC Q12 [facility] Last Admin: 11/30/16 21:55 Dose: 5,000 units Home Med (Home Med) 1 unit PO DAILY [facility] Home Med (Brinzolamide/Brimonidine Tart [Simbrinza 1%-0.2% Eye Drops]) 1 drop BOTHEYES BID [facility] Last Admin: 12/01/16 10:00 Dose: Not Given Home Med (Bromfenac Sodium [Prolensa]) 1 drop OD DAILY [facility] Last Admin: 12/01/16 10:00 Dose: Not Given Home Med (Difluprednate [Durezol]) 1 drop OD TID [facility] Last Admin: 12/01/16 14:28 Dose: Not Given Dextrose/Sodium Chloride (Dextrose 5%/0.45% Ns 1000 Ml) 1,000 mls @ 50 mls/hr IV .Q20H [facility] Last Admin: 11/30/16 14:00 Dose: Not Given Insulin Human Regular (Novolin R) 0 unit SC ACHS [facility] PRN Reason: Protocol Last Admin: 11/28/16 11:30 Dose: Not Given Latanoprost (Xalatan Opht) 0 ml OU HS [facility] Last Admin: 11/30/16 21:55 Dose: 2.5 ml Nebivolol (Bystolic) 20 mg PO DAILY [facility] Last Admin: 12/01/16 14:26 Dose: 20 mg Nifedipine (Procardia Xl) 90 mg PO DAILY [facility] Last Admin: 12/01/16 14:26 Dose: 90 mg Ondansetron HCl (Zofran Tab) 4 mg PO Q4H PRN PRN Reason: Nausea/Vomiting Pantoprazole Sodium (Protonix Ec Tab) 40 mg PO DAILY [facility] Sodium Bicarbonate (Sodium Bicarbonate Tab) 650 mg PO BID [facility] Last Admin: 12/01/16 17:38 Dose: 650 mg - Labs Labs: 12/01/16 08:19 12/01/16 08:19 PT 12.7 SECONDS (9.7-12.2) H 11/27/16 21:57 INR 1.1 11/27/16 21:57 APTT 87 SECONDS (21-34) H D 11/28/16 13:35 - Constitutional Appears: Well - Head Exam Head Exam: ATRAUMATIC, NORMAL INSPECTION - Eye Exam Eye Exam: EOMI, Normal appearance Pupil Exam: PERRL - ENT Exam ENT Exam: Mucous Membranes Moist - Neck Exam Neck Exam: Full ROM - Respiratory Exam Respiratory Exam: Clear to Ausculation Bilateral, NORMAL BREATHING PATTERN - Cardiovascular Exam Cardiovascular Exam: REGULAR RHYTHM, +S1, +S2. absent: Murmur - GI/Abdominal Exam GI & Abdominal Exam: Distended, Normal Bowel Sounds - Rectal Exam Rectal Exam: Deferred - Extremities Exam Extremities Exam: Pedal Edema Additional comments: right twister tender to palpation - Neurological Exam Neurological Exam: Alert, Awake, Oriented x3 - Skin Skin Exam: Normal Color, Warm Assessment and Plan (1) Metabolic encephalopathy Status: Acute (2) Acute on chronic renal failure Status: Chronic (3) Type 2 diabetes mellitus with diabetic chronic kidney disease Status: Chronic (4) CHF (congestive heart failure), NYHA class III Status: Acute (5) Prophylactic measure Status: Acute - Assessment and Plan (Free Text) Assessment: CHF (congestive heart failure), NYHA class III Assessment & Plan: Cardiology (Dr. Cronin) on consult Nephrology (Dr. Barrios) on consult 11/30: NPO for stress test tomorrow with Dr. Cronin. 12/01: stress test today, f/u results. back to renal diet. Ins and Outs daily weights bystolic 20mg PO daily, Procardia 90mg XL PO daily and Lasix resumed per Dr. Martinez. Held león and arb secondary to renal insuffiency Status: Acute Metabolic encephalopathy Assessment & Plan: Infectious Disease (Dr. Hubbard) on board-->help appreciated 11/29: Repeat CXR showed no pleural effusion. Pt Afebrile. Abx stopped per Dr. Hubbard. Doppler negative. F/U other studies. Chest xray impression: moderate to severe venous congestion with prominent airspace consolidative changes at the left lung base. Moderate left pleural effusion aztrenoam 1 mg IV once [11/28] Blood culture (11/27/16): negative X 48 hours Urine culture (11/29/16): pending speciation; 10,000-50,000 CFU; ordered for repeat urine culture urine culture [12/01]: no growth currently not on abx procalcitonin 0.16 (low) and lactate: 1.1 urine drug screen: negative unlikely altered mental status was due to infection, likely due to narcotic medication Head CT (11/28/16): normal Patient is negative for PE/DVT; heparin drip stopped Patient on significant narcotic at rehab and Morphine. Discontinued. Given narcan on 11/28/16 which help reduced lethargy significant. Be careful with narcotic medications with patient For pain: neurontin 100mg PO TID, flexeril 2.5mg PO TID, Lexapro 5mg PO daily Status: Acute Acute on chronic renal failure Assessment & Plan: BUN 16 Cr 52 Monitor BUN/CR Patient has refused dialysis initially on Thursday Dr rush of nephrology consulted, f/u recs renal dose all medications order d5 1/2 ns 50 cc/hr-->IV access lost held león/arb/statin/diuretic secondary to renal insuffiency Status: Chronic Right Hip Pain Right hip xray 2 views ordered [12/01], f/u Type 2 diabetes mellitus with diabetic chronic kidney disease Assessment & Plan: D5 1/2 ns 50 cc/hr not possible due to lost IV access accuchecks q achs Status: Chronic Prophylactic measure Assessment & Plan: protonix 40mg po daily stopped. Will switch to Nexium after daughter bring bottle from home. maalox 30ml PO daily [facility]CD[facility] pt eval and treat
[2016-12-01] MEDS: (Novolin R) Insulin Human Regular 100 units/ml vial SC SCH ×2 (18:53→22:13)
[2016-12-01] MEDS: Oxycodone/Acetaminophen 5/325 mg Tab PO PRN (20:47)
--- NOTE | 2016-12-01 20:56 | CP.PCM.PN ---
Subjective - Date & Time of Evaluation Date of Evaluation: 12/01/16 Time of Evaluation: 04:00 - Subjective Subjective: dictated Objective - Vital Signs/Intake and Output Vital Signs (last 24 hours): Temp Pulse Resp BP Pulse Ox 98 F 81 20 163/98 H 97 12/01/16 16:00 12/01/16 20:31 12/01/16 16:00 12/01/16 20:31 12/01/16 16:00 - Medications Medications: Current Medications Al Hydrox/Mg Hydrox/Simethicone (Maalox 30 Ml) 30 ml PO DAILY [facility] Last Admin: 12/01/16 17:02 Dose: 30 ml Artificial Tears (Artificial Tears) 0 ml OU BID [facility] Last Admin: 12/01/16 17:47 Dose: 1 drop Calcium Acetate (Phoslo) 667 mg PO BIDCC [facility] Last Admin: 12/01/16 17:02 Dose: 667 mg Cyclobenzaprine HCl (Flexeril) 2.5 mg PO TID [facility] Last Admin: 12/01/16 17:49 Dose: Not Given Escitalopram Oxalate (Lexapro) 5 mg PO DAILY [facility] Last Admin: 12/01/16 17:00 Dose: 5 mg Famotidine (Pepcid) 20 mg PO DAILY [facility] Last Admin: 12/01/16 16:58 Dose: 20 mg Furosemide (Lasix) 80 mg PO DAILY [facility] Last Admin: 12/01/16 14:26 Dose: 80 mg Gabapentin (Neurontin) 100 mg PO TID [facility] Last Admin: 12/01/16 17:38 Dose: 100 mg Heparin Sodium (Porcine) (Heparin) 5,000 units SC Q12 [facility] Last Admin: 11/30/16 21:55 Dose: 5,000 units Home Med (Home Med) 1 unit PO DAILY [facility] Home Med (Brinzolamide/Brimonidine Tart [Simbrinza 1%-0.2% Eye Drops]) 1 drop BOTHEYES BID [facility] Last Admin: 12/01/16 10:00 Dose: Not Given Home Med (Bromfenac Sodium [Prolensa]) 1 drop OD DAILY [facility] Last Admin: 12/01/16 10:00 Dose: Not Given Home Med (Difluprednate [Durezol]) 1 drop OD TID [facility] Last Admin: 12/01/16 14:28 Dose: Not Given Dextrose/Sodium Chloride (Dextrose 5%/0.45% Ns 1000 Ml) 1,000 mls @ 50 mls/hr IV .Q20H [facility] Last Admin: 11/30/16 14:00 Dose: Not Given Insulin Human Regular (Novolin R) 0 unit SC ACHS [facility] PRN Reason: Protocol Last Admin: 12/01/16 18:53 Dose: 2 unit Latanoprost (Xalatan Opht) 0 ml OU HS [facility] Last Admin: 11/30/16 21:55 Dose: 2.5 ml Nebivolol (Bystolic) 20 mg PO DAILY [facility] Last Admin: 12/01/16 14:26 Dose: 20 mg Nifedipine (Procardia Xl) 90 mg PO DAILY [facility] Last Admin: 12/01/16 14:26 Dose: 90 mg Ondansetron HCl (Zofran Tab) 4 mg PO Q4H PRN PRN Reason: Nausea/Vomiting Oxycodone/Acetaminophen (Percocet 5/325 Mg Tab) 1 tab PO Q12 PRN PRN Reason: Pain, severe (8-10) Stop: 12/04/16 22:01 Last Admin: 12/01/16 20:47 Dose: 1 tab Pantoprazole Sodium (Protonix Ec Tab) 40 mg PO DAILY [facility] Sodium Bicarbonate (Sodium Bicarbonate Tab) 650 mg PO BID [facility] Last Admin: 12/01/16 17:38 Dose: 650 mg - Labs Labs: 12/01/16 08:19 12/01/16 08:19 PT 12.7 SECONDS (9.7-12.2) H 11/27/16 21:57 INR 1.1 11/27/16 21:57 APTT 87 SECONDS (21-34) H D 11/28/16 13:35
--- NOTE | 2016-12-01 20:58 | CP.PCM.PN ---
Subjective - Date & Time of Evaluation Date of Evaluation: 12/01/16 Time of Evaluation: 04:15 - Subjective Subjective: dictated Objective - Vital Signs/Intake and Output Vital Signs (last 24 hours): Temp Pulse Resp BP Pulse Ox 98 F 81 20 163/98 H 97 12/01/16 16:00 12/01/16 20:31 12/01/16 16:00 12/01/16 20:31 12/01/16 16:00 - Medications Medications: Current Medications Al Hydrox/Mg Hydrox/Simethicone (Maalox 30 Ml) 30 ml PO DAILY [facility] Last Admin: 12/01/16 17:02 Dose: 30 ml Artificial Tears (Artificial Tears) 0 ml OU BID [facility] Last Admin: 12/01/16 17:47 Dose: 1 drop Calcium Acetate (Phoslo) 667 mg PO [facility]CC [facility] Last Admin: 12/01/16 17:02 Dose: 667 mg Cyclobenzaprine HCl (Flexeril) 2.5 mg PO TID [facility] Last Admin: 12/01/16 17:49 Dose: Not Given Escitalopram Oxalate (Lexapro) 5 mg PO DAILY [facility] Last Admin: 12/01/16 17:00 Dose: 5 mg Famotidine (Pepcid) 20 mg PO DAILY [facility] Last Admin: 12/01/16 16:58 Dose: 20 mg Furosemide (Lasix) 80 mg PO DAILY [facility] Last Admin: 12/01/16 14:26 Dose: 80 mg Gabapentin (Neurontin) 100 mg PO TID [facility] Last Admin: 12/01/16 17:38 Dose: 100 mg Heparin Sodium (Porcine) (Heparin) 5,000 units SC Q12 [facility] Last Admin: 11/30/16 21:55 Dose: 5,000 units Home Med (Home Med) 1 unit PO DAILY [facility] Home Med (Brinzolamide/Brimonidine Tart [Simbrinza 1%-0.2% Eye Drops]) 1 drop BOTHEYES BID [facility] Last Admin: 12/01/16 10:00 Dose: Not Given Home Med (Bromfenac Sodium [Prolensa]) 1 drop OD DAILY [facility] Last Admin: 12/01/16 10:00 Dose: Not Given Home Med (Difluprednate [Durezol]) 1 drop OD TID [facility] Last Admin: 12/01/16 14:28 Dose: Not Given Dextrose/Sodium Chloride (Dextrose 5%/0.45% Ns 1000 Ml) 1,000 mls @ 50 mls/hr IV .Q20H [facility] Last Admin: 11/30/16 14:00 Dose: Not Given Insulin Human Regular (Novolin R) 0 unit SC ACHS [facility] PRN Reason: Protocol Last Admin: 12/01/16 18:53 Dose: 2 unit Latanoprost (Xalatan Opht) 0 ml OU HS [facility] Last Admin: 11/30/16 21:55 Dose: 2.5 ml Nebivolol (Bystolic) 20 mg PO DAILY [facility] Last Admin: 12/01/16 14:26 Dose: 20 mg Nifedipine (Procardia Xl) 90 mg PO DAILY [facility] Last Admin: 12/01/16 14:26 Dose: 90 mg Ondansetron HCl (Zofran Tab) 4 mg PO Q4H PRN PRN Reason: Nausea/Vomiting Oxycodone/Acetaminophen (Percocet 5/325 Mg Tab) 1 tab PO Q12 PRN PRN Reason: Pain, severe (8-10) Stop: 12/04/16 22:01 Last Admin: 12/01/16 20:47 Dose: 1 tab Pantoprazole Sodium (Protonix Ec Tab) 40 mg PO DAILY [facility] Sodium Bicarbonate (Sodium Bicarbonate Tab) 650 mg PO BID [facility] Last Admin: 12/01/16 17:38 Dose: 650 mg - Labs Labs: 12/01/16 08:19 12/01/16 08:19 PT 12.7 SECONDS (9.7-12.2) H 11/27/16 21:57 INR 1.1 11/27/16 21:57 APTT 87 SECONDS (21-34) H D 11/28/16 13:35
--- NOTE | 2016-12-01 22:04 | PN ---
DATE: 12/01/2016 The patient is a 60-year-old female. I went to see her. She was saying she vomited whatever she ate and the medicine does not agree with her. She still had ankle pains and complained of abdomin al pain. She denied any other cough, cold or chest pains. No fevers. Her vitals were stable and janice ospina is off antibiotics as cultures have been all negative and she is being treated for renal failure al so. PHYSICAL EXAMINATION: VITAL SIGNS: T-max is 98, pulse 81, blood pressure was 180/89, respirations are 20. HEAD: Atraumatic, normocephalic. GENERAL: She was able to verbalize. NECK: Supple. LUNGS: Clear. No crackles or rales present. HEART: S1, S2 regular. ABDOMEN: Soft, nontender, no guarding, no rigidity present. EXTREMITIES: No clubbing or cyanosis. There was ankle edema. There was no cellulitis, however. Janice ospina had hyperpigmented skin, which was due to previous cellulitis and rash, but at this time, there was no cellulitis on the feet. LABORATORY DATA: White count is 7, hemoglobin 9.9, hematocrit 29.9, platelet count is 222. Sodium i s 141, potassium 4.6, chloride 104, CO2 is 25, BUN is 52, creatinine is 4.1. Blood culture x 2 is ne gative. Urine culture is negative. She had a perfusion scan on the which is pending. She is off antibiotics at this time and being treated for her generalized aches, osteoarthritis and also her renal insufficiency which is worsened from previous admission and her blood pressure needs to be maintained. I will follow p.r.n. if need ed. Fernando Hubbard MD cc: [id number] TT: 12/01/2016 22:03:30 Confirmation # [id number] Dictation # [id number]
[2016-12-01] MEDS: Latanoprost 2.5 ml Opht Soln OU SCH (22:08)
--- NOTE | 2016-12-01 22:46 | CP.PCM.PN ---
Subjective - Date & Time of Evaluation Date of Evaluation: 12/01/16 Time of Evaluation: 15:15 - Subjective Subjective: Patient with normal stress test Feels better Objective - Vital Signs/Intake and Output Vital Signs (last 24 hours): Temp Pulse Resp BP Pulse Ox 98 F 81 20 163/98 H 97 12/01/16 16:00 12/01/16 20:31 12/01/16 16:00 12/01/16 20:31 12/01/16 16:00 - Medications Medications: Current Medications Al Hydrox/Mg Hydrox/Simethicone (Maalox 30 Ml) 30 ml PO DAILY [facility] Last Admin: 12/01/16 17:02 Dose: 30 ml Artificial Tears (Artificial Tears) 0 ml OU BID [facility] Last Admin: 12/01/16 17:47 Dose: 1 drop Calcium Acetate (Phoslo) 667 mg PO BIDCC [facility] Last Admin: 12/01/16 17:02 Dose: 667 mg Cyclobenzaprine HCl (Flexeril) 2.5 mg PO TID [facility] Last Admin: 12/01/16 17:49 Dose: Not Given Escitalopram Oxalate (Lexapro) 5 mg PO DAILY [facility] Last Admin: 12/01/16 17:00 Dose: 5 mg Famotidine (Pepcid) 20 mg PO DAILY [facility] Last Admin: 12/01/16 16:58 Dose: 20 mg Furosemide (Lasix) 80 mg PO DAILY [facility] Last Admin: 12/01/16 14:26 Dose: 80 mg Gabapentin (Neurontin) 100 mg PO TID [facility] Last Admin: 12/01/16 17:38 Dose: 100 mg Heparin Sodium (Porcine) (Heparin) 5,000 units SC Q12 [facility] Last Admin: 11/30/16 21:55 Dose: 5,000 units Home Med (Home Med) 1 unit PO DAILY [facility] Home Med (Brinzolamide/Brimonidine Tart [Simbrinza 1%-0.2% Eye Drops]) 1 drop BOTHEYES BID [facility] Last Admin: 12/01/16 10:00 Dose: Not Given Home Med (Bromfenac Sodium [Prolensa]) 1 drop OD DAILY [facility] Last Admin: 12/01/16 10:00 Dose: Not Given Home Med (Difluprednate [Durezol]) 1 drop OD TID [facility] Last Admin: 12/01/16 14:28 Dose: Not Given Dextrose/Sodium Chloride (Dextrose 5%/0.45% Ns 1000 Ml) 1,000 mls @ 50 mls/hr IV .Q20H [facility] Last Admin: 11/30/16 14:00 Dose: Not Given Insulin Human Regular (Novolin R) 0 unit SC ACHS [facility] PRN Reason: Protocol Last Admin: 12/01/16 22:13 Dose: Not Given Latanoprost (Xalatan Opht) 0 ml OU HS [facility] Last Admin: 12/01/16 22:08 Dose: 2.5 ml Nebivolol (Bystolic) 20 mg PO DAILY [facility] Last Admin: 12/01/16 14:26 Dose: 20 mg Nifedipine (Procardia Xl) 90 mg PO DAILY [facility] Last Admin: 12/01/16 14:26 Dose: 90 mg Ondansetron HCl (Zofran Tab) 4 mg PO Q4H PRN PRN Reason: Nausea/Vomiting Oxycodone/Acetaminophen (Percocet 5/325 Mg Tab) 1 tab PO Q12 PRN PRN Reason: Pain, severe (8-10) Stop: 12/04/16 22:01 Last Admin: 12/01/16 20:47 Dose: 1 tab Pantoprazole Sodium (Protonix Ec Tab) 40 mg PO DAILY [facility] Sodium Bicarbonate (Sodium Bicarbonate Tab) 650 mg PO BID [facility] Last Admin: 12/01/16 17:38 Dose: 650 mg - Labs Labs: 12/01/16 08:19 12/01/16 08:19 PT 12.7 SECONDS (9.7-12.2) H 11/27/16 21:57 INR 1.1 11/27/16 21:57 APTT 87 SECONDS (21-34) H D 11/28/16 13:35
--- NOTE | 2016-12-02 00:23 | CARD ---
APPROVED REPORT Protocol: LEXISCAN Test Type: LEXISCAN STRESS Test Indications: CP Target HR: 158 bpm Resting ECG: NSR Resting Heart Rate: 81 bpm Resting Blood Pressure: 118/80mmHg submaximum (85%): 134 bpm TEST SUMMARY [id number]/80.4. INFUSIONDOSE 100:[id number]/80.3. [id number]. PROCEDURE Pharmacologic stress testing was performed using 0.4mg per 5ml of regadenoson given intravenously over 7-10 seconds. Reversal agent aminophyline 125 mg, given intravenously for Headache. POST EXERCISE Reason for Termination: Protocol Completed Target HR: No Max HR: 78 bpm 55% of Maximum Predicted HR: 158 bpm Exercise duration: 00:30 min:sec, 0 Stage Exercise capacity: 1.0METs Max Blood Pressure: 118/80mmHg Blood Pressure response to exercise: normal resting BP - appropriate response Heart Rate response to exercise: appropriate Chest Pain: No, none Angina index: 0 Arrhythmia: No, none ST Change: No, none Deviation: 0 mm INTERPRETATION Stress EKG Conclusion: NEGATIVE LEXISCAN STRESS TEST NORMAL BP RESPONSE TO LEXISCAN NUCLEAR STUDIES TO BE READ SEPARATELY EXAM: Myocardial Perfusion STRESS/REST Imaging Protocol The imaging protocol used to acquire images was Stress Tc-99m/rest Tc-99m 1 day Stress Spect myocardial perfusion imaging was performed in supine position 41 minutes following the injection of 13 mCi of Tc-99 Myoview. Gated Rest Spect was performed 39 minutes after intravenous 30.8 mCi Tc-99 Myoview injection. The images were gated to evaluate regional wall motion and calculate ventricular ejection fraction.Images were reconstructed using backfilter projection method in short horizontal and verticle long axis. Spect slices were generated. RESTING DATA ITV996.06wvEB2.70L/min ESV40.00mlMyocardial Ljpu968.00g Av. Heart Rate81.00bpm EF67.00% STRESS DATA VKF402.95lbEW3.10L/min ESV35.00mlMyocardial Zfoy702.00g EF69.00% Regional WT score at stress:1.00 Regional WM score at stress:0.00 Summed WT score at stress:8.00 Av. Heart Rate79.00bpmSummed WM score at stress:7.00 LV Perf. Quant 17 Seg. SSS1.00 17 Seg. SRS3.00 17 Seg. SDS0.00 Stress Defect Extent (% LAD)0.00Rest Defect Extent (% LAD)0.00Rev. Defect Extent (% LAD)0.00 Stress Defect Extent (% LCX)20.00Rest Defect Extent (% LCX)25.00Rev. Defect Extent (% LCX)0.00 Stress Defect Extent (% RCA)0.00Rest Defect Extent (% RCA)2.20Rev. Defect Extent (% RCA)0.00 Stress Defect Extent (% MAGDALENO)5.00Rest Defect Extent (% MAGDALENO)8.00Rev. Defect Extent (% MAGDALENO)0.00 Other Information Quality:Good IMPRESSION Normal Myocardial Perfusion exercise stress study Left Ventricle LV Function:Left ventricle systolic function is normal. The Ejection Fraction is >55%. Conclusion 1. Normal Lexiscan nuclear stress test
[2016-12-02] MEDS: Oxycodone/Acetaminophen 5/325 mg Tab PO PRN ×2 (06:23→16:36)
[2016-12-02] MEDS: (Novolin R) Insulin Human Regular 100 units/ml vial SC SCH ×4 (07:30→21:45)
[2016-12-02 07:48] LABS: BASO % 0.6 % (0.0-2.0); EOS # 0.3 K/uL (0.0-0.7); EOS % 3.6 % (0.0-4.0); HEMATOCRIT 30.1 % (34.0-47.0); LYMPH # 2.3 K/uL (1.0-4.3); LYMPH % 33.3 % (20.0-40.0); MEAN CELL VOLUME 86.6 fL (81.0-99.0); MEAN CORPUSCULAR HEMOGLOBIN 28.2 pg (27.0-31.0); MEAN CORPUSCULAR HGB CONC 32.6 g/dL (33.0-37.0); MEAN PLATELET VOLUME 8.6 fL (7.2-11.7); MONO # 0.7 K/uL (0.0-0.8); MONO % 10.3 % (0.0-10.0); RED CELL DISTRIBUTION WIDTH 13.3 % (11.5-14.5)
[2016-12-02 08:00] LABS: POTASSIUM 4.4 mmol/L (3.6-5.2)
[2016-12-02 08:03] LABS: ALB/GLOB RATIO 0.9 (1.0-2.1); BILIRUBIN,TOTAL 0.6 mg/dL (0.2-1.3); CALCIUM 8.7 mg/dl (8.6-10.4); TOTAL PROTEIN 7.5 g/dL (6.3-8.3)
[2016-12-02] MEDS: Aluminum Hydroxide/Magnesium Hydroxide Susp (30 mL) PO SCH (09:09)
[2016-12-02] MEDS: Pantoprazole 40 mg EC Tab PO SCH (09:13)
[2016-12-02] MEDS: NIFEdipine 90 mg ER Tab PO SCH (09:14)
[2016-12-02] MEDS: Aritificial Tears (15ml) OU SCH ×2 (09:33→17:37)
--- NOTE | 2016-12-02 10:09 | CP.PCM.PN ---
Subjective - Date & Time of Evaluation Date of Evaluation: 12/02/16 Time of Evaluation: 07:00 - Subjective Subjective: PGY1 on medicine Dr. Renteria's service: Patient was seen and examined at bedside in the AM. Patient was not in acute distress. Patient complains of pain in right foot she stated it feels like a lightening bolt straight through her foot. Per patient her bilateral extremities are still swollen. She complains of feeling nauseous. She denied chest pain, shortness of breath, cough, bleeding, fevers, chills and abdominal pain. Objective - Vital Signs/Intake and Output Vital Signs (last 24 hours): Temp Pulse Resp BP Pulse Ox 97.9 F 78 18 150/86 97 12/02/16 07:20 12/02/16 07:30 12/02/16 07:20 12/02/16 09:28 12/02/16 07:20 Intake and Output: 12/02/16 12/02/16 06:59 18:59 Intake Total 240 Output Total 900 Balance -660 - Medications Medications: Current Medications Al Hydrox/Mg Hydrox/Simethicone (Maalox 30 Ml) 30 ml PO DAILY [facility] Last Admin: 12/02/16 09:09 Dose: 30 ml Artificial Tears (Artificial Tears) 0 ml OU BID [facility] Last Admin: 12/02/16 09:33 Dose: 1 drop [facility] ([facility]) [facility] Last Admin: 12/02/16 08:00 Dose: 667 mg Cyclobenzaprine HCl (Flexeril) 2.5 mg PO TID [facility] Last Admin: 12/02/16 09:18 Dose: 2.5 mg Escitalopram Oxalate (Lexapro) 5 mg PO DAILY [facility] Last Admin: 12/01/16 17:00 Dose: 5 mg Famotidine (Pepcid) 20 mg PO DAILY [facility] Last Admin: 12/02/16 09:13 Dose: 20 mg Furosemide (Lasix) 80 mg PO DAILY [facility] Last Admin: 12/02/16 09:28 Dose: 80 mg Gabapentin (Neurontin) 100 mg PO TID [facility] Last Admin: 12/02/16 09:14 Dose: 100 mg Heparin Sodium (Porcine) (Heparin) 5,000 units SC Q12 [facility] Last Admin: 11/30/16 21:55 Dose: 5,000 units Home Med (Home Med) 1 unit PO DAILY [facility] Home Med (Brinzolamide/Brimonidine Tart [Simbrinza 1%-0.2% Eye Drops]) 1 drop BOTHEYES BID [facility] Last Admin: 12/01/16 10:00 Dose: Not Given Home Med (Bromfenac Sodium [Prolensa]) 1 drop OD DAILY [facility] Last Admin: 12/01/16 10:00 Dose: Not Given Home Med (Difluprednate [Durezol]) 1 drop OD TID [facility] Last Admin: 12/01/16 14:28 Dose: Not Given Dextrose/Sodium Chloride (Dextrose 5%/0.45% Ns 1000 Ml) 1,000 mls @ 50 mls/hr IV .Q20H [facility] Last Admin: 11/30/16 14:00 Dose: Not Given Insulin Human Regular (Novolin R) 0 unit SC ACHS [facility] PRN Reason: Protocol Last Admin: 12/02/16 07:30 Dose: Not Given Latanoprost (Xalatan Opht) 0 ml OU HS [facility] Last Admin: 12/01/16 22:08 Dose: 2.5 ml Nebivolol (Bystolic) 20 mg PO DAILY [facility] Last Admin: 12/02/16 09:12 Dose: 20 mg Nifedipine (Procardia Xl) 90 mg PO DAILY [facility] Last Admin: 12/02/16 09:14 Dose: 90 mg Ondansetron HCl (Zofran Tab) 4 mg PO Q4H PRN PRN Reason: Nausea/Vomiting Last Admin: 12/02/16 09:14 Dose: 4 mg Oxycodone/Acetaminophen (Percocet 5/325 Mg Tab) 1 tab PO Q12 PRN PRN Reason: Pain, severe (8-10) Stop: 12/04/16 22:01 Last Admin: 12/02/16 06:23 Dose: 1 tab Pantoprazole Sodium (Protonix Ec Tab) 40 mg PO DAILY [facility] Last Admin: 12/02/16 09:13 Dose: 40 mg Sodium Bicarbonate (Sodium Bicarbonate Tab) 650 mg PO BID [facility] Last Admin: 12/02/16 09:14 Dose: 650 mg - Labs Labs: 12/02/16 07:32 12/02/16 07:32 PT 12.7 SECONDS (9.7-12.2) H 11/27/16 21:57 INR 1.1 11/27/16 21:57 APTT 87 SECONDS (21-34) H D 11/28/16 13:35 - Constitutional Appears: No Acute Distress - Head Exam Head Exam: NORMAL INSPECTION, NORMOCEPHALIC - ENT Exam ENT Exam: Mucous Membranes Moist - Respiratory Exam Respiratory Exam: Clear to Ausculation Bilateral, NORMAL BREATHING PATTERN. absent: Rales, Rhonchi, Wheezes, Stridor - Cardiovascular Exam Cardiovascular Exam: REGULAR RHYTHM, RRR, +S1, +S2. absent: JVD - GI/Abdominal Exam GI & Abdominal Exam: Soft, Normal Bowel Sounds. absent: Tenderness - Extremities Exam Extremities Exam: Pedal Edema, Tenderness - Neurological Exam Neurological Exam: Alert, Awake, Oriented x3 - Psychiatric Exam Psychiatric exam: Normal Mood - Skin Skin Exam: Dry, Normal Color, Warm Assessment and Plan (1) CHF (congestive heart failure), NYHA class III Assessment & Plan: Cardiology (Dr. Cronin) on consult Nephrology (Dr. Barrios) on consult 11/30: Stress test:LV function systolic function normal. EF>55% Ins and Outs daily weights bystolic 20mg PO daily, Procardia 90mg XL PO daily and Lasix resumed per Dr. Martinez. Held león and arb secondary to renal insuffiency Status: Acute (2) Metabolic encephalopathy Assessment & Plan: Infectious Disease (Dr. Hubbard) on board-->help appreciated 11/29: Repeat CXR showed no pleural effusion. Pt Afebrile. Abx stopped per Dr. Hubbard. Doppler negative. F/U other studies. Chest xray impression: moderate to severe venous congestion with prominent airspace consolidative changes at the left lung base. Moderate left pleural effusion aztrenoam 1 mg IV once [11/28] Blood culture (11/27/16): negative X 48 hours Urine culture (11/29/16): pending speciation; 10,000-50,000 CFU; ordered for repeat urine culture urine culture [12/01]: no growth currently not on abx procalcitonin 0.16 (low) and lactate: 1.1 urine drug screen: negative unlikely altered mental status was due to infection, likely due to narcotic medication Head CT (11/28/16): normal Patient is negative for PE/DVT; heparin drip stopped Patient on significant narcotic at rehab and Morphine. Discontinued. Given narcan on 11/28/16 which help reduced lethargy significant. Be careful with narcotic medications with patient For pain: Percocet 1mg Q8H, neurontin 100mg PO TID, flexeril 2.5mg PO TID, Lexapro 5mg PO daily Status: Acute (3) Hip pain, right Assessment & Plan: Right hip x-ray 2 views(12/01/16): Bilateral symmetrical osseous hypertrophic changes as detailed in report. No fracture or dislocation appreciated. Hypertrophic arthrosis inferred. Status: Acute (4) Acute on chronic renal failure Assessment & Plan: BUN/CR: 44/3.9 Monitor BUN/CR Patient has refused dialysis initially on Thursday Dr rush of nephrology consulted, f/u recs renal dose all medications order d5 1/2 ns 50 cc/hr-->IV access lost held león/arb/statin/diuretic secondary to renal insuffiency Status: Chronic (5) Type 2 diabetes mellitus with diabetic chronic kidney disease Assessment & Plan: D5 1/2 ns 50 cc/hr not possible due to lost IV access accuchecks q achs Status: Chronic (6) Prophylactic measure Assessment & Plan: protonix 40mg po daily stopped. Will switch to Nexium after daughter bring bottle from home. maalox 30ml PO daily SCDs pt eval and treat f/u with Case Management for Rehab Discharge Status: Acute
--- NOTE | 2016-12-02 10:34 | CP.PCM.PN ---
Subjective - Date & Time of Evaluation Date of Evaluation: 12/02/16 Time of Evaluation: 10:32 - Subjective Subjective: seen and examined improving creatinine improved leg swelling Objective - Vital Signs/Intake and Output Vital Signs (last 24 hours): Temp Pulse Resp BP Pulse Ox 97.9 F 78 18 150/86 97 12/02/16 07:20 12/02/16 07:30 12/02/16 07:20 12/02/16 09:28 12/02/16 07:20 Intake and Output: 12/02/16 12/02/16 06:59 18:59 Intake Total 240 Output Total 900 Balance -660 - Medications Medications: Current Medications Al Hydrox/Mg Hydrox/Simethicone (Maalox 30 Ml) 30 ml PO DAILY [facility] Last Admin: 12/02/16 09:09 Dose: 30 ml Artificial Tears (Artificial Tears) 0 ml OU BID [facility] Last Admin: 12/02/16 09:33 Dose: 1 drop Calcium Acetate (Phoslo) 667 mg PO BIDCC [facility] Last Admin: 12/02/16 08:00 Dose: 667 mg Cyclobenzaprine HCl (Flexeril) 2.5 mg PO TID [facility] Last Admin: 12/02/16 09:18 Dose: 2.5 mg Escitalopram Oxalate (Lexapro) 5 mg PO DAILY [facility] Last Admin: 12/01/16 17:00 Dose: 5 mg Famotidine (Pepcid) 20 mg PO DAILY [facility] Last Admin: 12/02/16 09:13 Dose: 20 mg Furosemide (Lasix) 80 mg PO DAILY [facility] Last Admin: 12/02/16 09:28 Dose: 80 mg Gabapentin (Neurontin) 100 mg PO TID [facility] Last Admin: 12/02/16 09:14 Dose: 100 mg Heparin Sodium (Porcine) (Heparin) 5,000 units SC Q12 [facility] Last Admin: 11/30/16 21:55 Dose: 5,000 units Home Med (Home Med) 1 unit PO DAILY [facility] Home Med (Brinzolamide/Brimonidine Tart [Simbrinza 1%-0.2% Eye Drops]) 1 drop BOTHEYES BID [facility] Last Admin: 12/01/16 10:00 Dose: Not Given Home Med (Bromfenac Sodium [Prolensa]) 1 drop OD DAILY [facility] Last Admin: 12/01/16 10:00 Dose: Not Given Home Med (Difluprednate [Durezol]) 1 drop OD TID [facility] Last Admin: 12/01/16 14:28 Dose: Not Given Dextrose/Sodium Chloride (Dextrose 5%/0.45% Ns 1000 Ml) 1,000 mls @ 50 mls/hr IV .Q20H [facility] Last Admin: 11/30/16 14:00 Dose: Not Given Insulin Human Regular (Novolin R) 0 unit SC ACHS [facility] PRN Reason: Protocol Last Admin: 12/02/16 07:30 Dose: Not Given Latanoprost (Xalatan Opht) 0 ml OU HS [facility] Last Admin: 12/01/16 22:08 Dose: 2.5 ml Nebivolol (Bystolic) 20 mg PO DAILY [facility] Last Admin: 12/02/16 09:12 Dose: 20 mg Nifedipine (Procardia Xl) 90 mg PO DAILY [facility] Last Admin: 12/02/16 09:14 Dose: 90 mg Ondansetron HCl (Zofran Tab) 4 mg PO Q4H PRN PRN Reason: Nausea/Vomiting Last Admin: 12/02/16 09:14 Dose: 4 mg Oxycodone/Acetaminophen (Percocet 5/325 Mg Tab) 1 tab PO Q12 PRN PRN Reason: Pain, severe (8-10) Stop: 12/04/16 22:01 Last Admin: 12/02/16 06:23 Dose: 1 tab Oxycodone/Acetaminophen (Percocet 5/325 Mg Tab) 1 tab PO Q8H PRN PRN Reason: Pain, severe (8-10) Stop: 12/05/16 10:31 Pantoprazole Sodium (Protonix Ec Tab) 40 mg PO DAILY [facility] Last Admin: 12/02/16 09:13 Dose: 40 mg Sodium Bicarbonate (Sodium Bicarbonate Tab) 650 mg PO BID [facility] Last Admin: 12/02/16 09:14 Dose: 650 mg - Labs Labs: 12/02/16 07:32 12/02/16 07:32 PT 12.7 SECONDS (9.7-12.2) H 11/27/16 21:57 INR 1.1 11/27/16 21:57 APTT 87 SECONDS (21-34) H D 11/28/16 13:35 - Constitutional Appears: Non-toxic, No Acute Distress, Chronically Ill - Head Exam Head Exam: NORMAL INSPECTION - Eye Exam Eye Exam: Normal appearance - ENT Exam ENT Exam: Mucous Membranes Moist, Normal Exam - Neck Exam Neck Exam: Normal Inspection - Respiratory Exam Respiratory Exam: Decreased Breath Sounds, Clear to Ausculation Bilateral, NORMAL BREATHING PATTERN - Cardiovascular Exam Cardiovascular Exam: REGULAR RHYTHM, RRR - GI/Abdominal Exam GI & Abdominal Exam: Distended, Soft - Extremities Exam Extremities Exam: Normal Inspection, Pedal Edema (1+) Assessment and Plan (1) Chest pain Status: Acute (2) Acute on chronic renal failure Status: Chronic (3) Type 2 diabetes mellitus with diabetic chronic kidney disease Status: Chronic (4) Anemia Status: Acute (5) CKD (chronic kidney disease) Status: Acute (6) Hypertension Status: Acute - Assessment and Plan (Free Text) Assessment: stable ckd resolved lan htn dm 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 follow up outpt w/ primary blasting helper. dc iv fluids dc aluminum hydroxide
--- NOTE | 2016-12-02 11:28 | RAD ---
PROCEDURE: HISTORY: fall and pain COMPARISON: None TECHNIQUE: AP view of the pelvis and applicable frog leg views obtained. FINDINGS: No fracture or dislocation. The bilateral symmetrical superolateral acetabular osseous hypertrophy and its prominent femoral head coverage are concerning for a femoral acetabular impingement the clinical presentation. Osseous hypertrophic changes - including some enthesophyte like formations along each superolateral iliac crest is noted. Exuberant facet hypertrophic changes of the inferior lumbar spine and left is also suggested. There is probable gas projecting over the inferior central lumbar vertebrae. IMPRESSION: Bilateral symmetrical osseous hypertrophic changes as detailed above. No fracture or dislocation appreciated. Other findings as above. Hypertrophic arthrosis inferred
[2016-12-02] MEDS ORDERED: Aluminum Hydroxide/Magnesium Hydroxide Susp (30 mL) PO SCH (14:11)
--- NOTE | 2016-12-02 15:43 | CP.PCM.DIS ---
Provider - Provider Date of Admission: 11/28/16 01:58 Attending physician: Fidencio Renteria MD Hospital Course - Lab Results Lab Results: Micro Results 11/28/16 16:20 Blood Blood Culture - Preliminary NO GROWTH AFTER 3 DAYS 11/28/16 17:37 Blood Blood Culture - Preliminary NO GROWTH AFTER 3 DAYS 11/29/16 Unknown Urine,Clean Catch Urine Culture - Final 10-50,000 CFU/ML. MULTIPLE SPECIES. PROBABLE CONTAMINATION. 11/30/16 Unknown Urine,Clean Catch Urine Culture - Final No Growth (<1,000 CFU/ML) Most Recent Lab Values WBC 7.0 K/uL (4.8-10.8) 12/02/16 07:32 RBC 3.47 Mil/uL (3.80-5.20) L 12/02/16 07:32 Hgb 9.8 g/dL (11.0-16.0) L 12/02/16 07:32 Hct 30.1 % (34.0-47.0) L 12/02/16 07:32 MCV 86.6 fL (81.0-99.0) 12/02/16 07:32 MCH 28.2 pg (27.0-31.0) 12/02/16 07:32 MCHC 32.6 g/dL (33.0-37.0) L 12/02/16 07:32 RDW 13.3 % (11.5-14.5) 12/02/16 07:32 Plt Count 218 K/uL (130-400) 12/02/16 07:32 MPV 8.6 fL (7.2-11.7) 12/02/16 07:32 Neut % (Auto) 52.2 % (50.0-75.0) 12/02/16 07:32 Lymph % (Auto) 33.3 % (20.0-40.0) 12/02/16 07:32 Bryan % (Auto) 10.3 % (0.0-10.0) H 12/02/16 07:32 Eos % (Auto) 3.6 % (0.0-4.0) 12/02/16 07:32 Baso % (Auto) 0.6 % (0.0-2.0) 12/02/16 07:32 Neut # 3.7 K/uL (1.8-7.0) 12/02/16 07:32 Lymph # 2.3 K/uL (1.0-4.3) 12/02/16 07:32 Bryan # 0.7 K/uL (0.0-0.8) 12/02/16 07:32 Eos # 0.3 K/uL (0.0-0.7) 12/02/16 07:32 Baso # 0.0 K/uL (0.0-0.2) 12/02/16 07:32 PT 12.7 SECONDS (9.7-12.2) H 11/27/16 21:57 INR 1.1 11/27/16 21:57 APTT 87 SECONDS (21-34) H D 11/28/16 13:35 D-Dimer, Quantitative 399 ng/mlDDU (0-243) H 11/27/16 21:57 Sodium 139 mmol/L (132-148) 12/02/16 07:32 Potassium 4.4 mmol/L (3.6-5.2) 12/02/16 07:32 Chloride 105 mmol/L (98-107) 12/02/16 07:32 Carbon Dioxide 24 mmol/L (22-30) 12/02/16 07:32 Anion Gap 15 (10-20) 12/02/16 07:32 BUN 44 mg/dL (7-17) H 12/02/16 07:32 Creatinine 3.9 MG/DL (0.7-1.2) H 12/02/16 07:32 Est GFR ( Amer) 14 12/02/16 07:32 Est GFR (Non-Af Amer) 12 12/02/16 07:32 POC Glucose (mg/dL) 248 mg/dL (65-110) H 12/02/16 11:59 Random Glucose 129 mg/dL (65-105) H 12/02/16 07:32 Lactic Acid 1.1 mmol/L (0.7-2.1) 11/28/16 17:37 Calcium 8.7 mg/dl (8.6-10.4) 12/02/16 07:32 Phosphorus 4.7 mg/dL (2.5-4.5) H 11/29/16 17:00 Magnesium 2.1 mg/dL (1.6-2.3) 11/29/16 17:00 % Saturation 24 (20-55) 11/29/16 17:00 Ferritin 121.0 ng/mL 11/29/16 17:00 Total Bilirubin 0.6 mg/dL (0.2-1.3) 12/02/16 07:32 AST 21 U/L (14-36) 12/02/16 07:32 ALT 21 U/L (9-52) 12/02/16 07:32 Alkaline Phosphatase 173 U/L (38-126) H 12/02/16 07:32 Total Creatine Kinase 69 U/L (30-135) 11/29/16 17:00 CK-MB (Mass) 1.12 ng/mL (0.0-3.38) 11/29/16 17:00 Troponin I < 0.0120 ng/mL (0.00-0.120) 11/27/16 21:57 Troponin I, Quant < 0.0120 ng/mL (0.00-0.120) 11/29/16 17:00 NT-Pro-B Natriuret Pep 488 pg/mL (0-900) 11/27/16 21:57 Total Protein 7.5 g/dL (6.3-8.3) 12/02/16 07:32 Total Protein (PEP) 6.9 g/dL (6.1-8.1) 11/29/16 17:00 Albumin 3.6 g/dL (3.5-5.0) 12/02/16 07:32 Albumin (PEP) 3.2 g/dL (3.8-4.8) L 11/29/16 17:00 Globulin 4.0 gm/dL (2.2-3.9) H 12/02/16 07:32 Albumin/Globulin Ratio 0.9 (1.0-2.1) L 12/02/16 07:32 Jcbmb-6-Lmprioscz 0.4 g/dL (0.2-0.3) H 11/29/16 17:00 Ewqhj-8-Jwvstaxke 0.7 g/dL (0.5-0.9) 11/29/16 17:00 Uitf-7-Minhulju 0.4 g/dL (0.4-0.6) 11/29/16 17:00 Frmd-5-Vyfylpaa 0.6 g/dL (0.2-0.5) H 11/29/16 17:00 Gamma Globulins 1.6 g/dL (0.8-1.7) 11/29/16 17:00 Abnorm Protein Band 1 TEST NOT PERFORMED 11/29/16 17:00 Abnorm Protein Band 2 TEST NOT PERFORMED 11/29/16 17:00 Abnorm Protein Band 3 TEST NOT PERFORMED 11/29/16 17:00 Procalcitonin 0.16 NG/ML (0.19-0.49) L 11/28/16 17:37 PTH Intact Whole Molec 130 pg/mL (14-64) H 11/29/16 17:00 Urine Color Straw (YELLOW) 11/29/16 01:36 Urine Clarity Clear (Clear) 11/29/16 01:36 Urine pH 7.0 (5.0-8.0) 11/29/16 01:36 Ur Specific [place] 1.012 (1.003-1.030) 11/29/16 01:36 Urine Protein 2+ mg/dL (NEGATIVE) H 11/29/16 01:36 Urine Glucose (UA) 1+ mg/dL (Normal) 11/29/16 01:36 Urine Ketones Negative mg/dL (NEGATIVE) 11/29/16 01:36 Urine Blood Negative (NEGATIVE) 11/29/16 01:36 Urine Nitrate Negative (NEGATIVE) 11/29/16 01:36 Urine Bilirubin Negative (NEGATIVE) 11/29/16 01:36 Urine Urobilinogen Normal mg/dL (0.2-1.0) 11/29/16 01:36 Ur Leukocyte Esterase Neg Myles/uL (Negative) 11/29/16 01:36 Urine WBC (Auto) 1 /hpf (0-5) 11/29/16 01:36 Urine RBC (Auto) 1 /hpf (0-3) 11/29/16 01:36 Ur Squamous Epith Cells 4 /hpf (0-5) 11/29/16 01:36 Urine Bacteria Rare (<OCC) 11/29/16 01:36 Urine Opiates Screen Negative (NEGATIVE) 11/29/16 01:36 Urine Methadone Screen Negative (NEGATIVE) 11/29/16 01:36 Ur Barbiturates Screen Negative (NEGATIVE) 11/29/16 01:36 Ur Phencyclidine Scrn Negative (NEGATIVE) 11/29/16 01:36 Ur Amphetamines Screen Negative (NEGATIVE) 11/29/16 01:36 U Benzodiazepines Scrn Negative (NEGATIVE) 11/29/16 01:36 U Oth Cocaine Metabols Negative (NEGATIVE) 11/29/16 01:36 U Cannabinoids Screen Negative (NEGATIVE) 11/29/16 01:36 TAMIKO & SPEP Interp See note 11/29/16 17:00 Discharge Exam - Head Exam Head Exam: NORMAL INSPECTION Discharge Plan - Discharge Medications Prescriptions: Brinzolamide/Brimonidine Tart [Simbrinza 1%-0.2% Eye Drops] 8 ml OP BID #1 drops.susp Bromfenac Sodium [Prolensa] 3 ml OP DAILY #1 drops Difluprednate [Durezol] 5 ml OP TID #1 drops Travoprost [Travatan Z] 5 ml OP HS #1 drops - Follow Up Plan Condition: FAIR Disposition: HOME/ ROUTINE
--- NOTE | 2016-12-02 20:17 | CP.PCM.PN ---
Subjective - Date & Time of Evaluation Date of Evaluation: 12/02/16 Time of Evaluation: 12:05 - Subjective Subjective: Subjective Patient denies chest pain and dyspnea Physical Examination - Constitutional Appears: No Acute Distress - Head Exam Head Exam: NORMAL INSPECTION, NORMOCEPHALIC - ENT Exam ENT Exam: Mucous Membranes Moist - Respiratory Exam Respiratory Exam: Clear to Ausculation Bilateral, NORMAL BREATHING PATTERN. absent: Rales, Rhonchi, Wheezes, Stridor - Cardiovascular Exam Cardiovascular Exam: REGULAR RHYTHM, RRR, +S1, +S2. absent: JVD - GI/Abdominal Exam GI & Abdominal Exam: Soft, Normal Bowel Sounds. absent: Tenderness - Extremities Exam Extremities Exam: Pedal Edema, Tenderness - Neurological Exam Neurological Exam: Alert, Awake, Oriented x3 - Psychiatric Exam Psychiatric exam: Normal Mood - Skin Skin Exam: Dry, Normal Color, Warm Objective - Vital Signs/Intake and Output Vital Signs (last 24 hours): Temp Pulse Resp BP Pulse Ox 97.8 F 68 18 144/90 97 12/02/16 15:35 12/02/16 15:35 12/02/16 15:35 12/02/16 15:35 12/02/16 15:35 - Medications Medications: Current Medications Amlodipine Besylate (Norvasc) 5 mg PO DAILY [facility] Last Admin: 12/02/16 12:29 Dose: 5 mg Artificial Tears (Artificial Tears) 0 ml OU BID [facility] Last Admin: 12/02/16 17:37 Dose: 1 drop Calcium Acetate (Phoslo) 667 mg PO BIDCC [facility] Last Admin: 12/02/16 16:35 Dose: 667 mg Cyclobenzaprine HCl (Flexeril) 2.5 mg PO TID [facility] Last Admin: 12/02/16 17:37 Dose: 2.5 mg Escitalopram Oxalate (Lexapro) 5 mg PO DAILY [facility] Last Admin: 12/02/16 12:30 Dose: 5 mg Famotidine (Pepcid) 20 mg PO DAILY [facility] Last Admin: 12/02/16 09:13 Dose: 20 mg Furosemide (Lasix) 80 mg PO DAILY [facility] Last Admin: 12/02/16 09:28 Dose: 80 mg Gabapentin (Neurontin) 100 mg PO TID [facility] Last Admin: 12/02/16 17:37 Dose: 100 mg Heparin Sodium (Porcine) (Heparin) 5,000 units SC Q12 [facility] Last Admin: 11/30/16 21:55 Dose: 5,000 units Home Med (Home Med) 1 unit PO DAILY [facility] Home Med (Brinzolamide/Brimonidine Tart [Simbrinza 1%-0.2% Eye Drops]) 1 drop BOTHEYES BID [facility] Last Admin: 12/01/16 10:00 Dose: Not Given Home Med (Difluprednate [Durezol]) 1 drop OD TID [facility] Home Med (Bromfenac Sodium [Prolensa]) 1 drop OD DAILY [facility] Insulin Human Regular (Novolin R) 0 unit SC ACHS [facility] PRN Reason: Protocol Last Admin: 12/02/16 17:31 Dose: Not Given Latanoprost (Xalatan Opht) 0 ml OU HS [facility] Last Admin: 12/01/16 22:08 Dose: 2.5 ml Nebivolol (Bystolic) 20 mg PO DAILY [facility] Last Admin: 12/02/16 09:12 Dose: 20 mg Nifedipine (Procardia Xl) 90 mg PO DAILY [facility] Last Admin: 12/02/16 09:14 Dose: 90 mg Ondansetron HCl (Zofran Tab) 4 mg PO Q4H PRN PRN Reason: Nausea/Vomiting Last Admin: 12/02/16 09:14 Dose: 4 mg Oxycodone/Acetaminophen (Percocet 5/325 Mg Tab) 1 tab PO Q8H PRN PRN Reason: Pain, severe (8-10) Stop: 12/05/16 10:31 Last Admin: 12/02/16 16:36 Dose: 1 tab Pantoprazole Sodium (Protonix Ec Tab) 40 mg PO DAILY [facility] Last Admin: 12/02/16 09:13 Dose: 40 mg Sodium Bicarbonate (Sodium Bicarbonate Tab) 650 mg PO BID [facility] Last Admin: 12/02/16 17:37 Dose: 650 mg - Labs Labs: 12/02/16 07:32 12/02/16 07:32 PT 12.7 SECONDS (9.7-12.2) H 11/27/16 21:57 INR 1.1 11/27/16 21:57 APTT 87 SECONDS (21-34) H D 11/28/16 13:35 Assessment and Plan - Assessment and Plan (Free Text) Assessment: Assessment and Plan (1) CHF (congestive heart failure), Diastolic CHF (HFpEF) Assessment & Plan Nephrology (Dr. Barrios) on consult 11/30: Stress test:LV function systolic function normal. EF>55% Stress test: Negative (2) Acute on chronic renal failure Assessment & Plan: BUN/CR: 44/3.9 Monitor BUN/CR Patient has refused dialysis initially on Thursday Dr rush of nephrology consulted, f/u recs renal dose all medications order d5 1/2 ns 50 cc/hr-->IV access lost held león/arb/statin/diuretic secondary to renal insuffiency Status: Chronic (3) Type 2 diabetes mellitus with diabetic chronic kidney disease Assessment & Plan: D5 1/2 ns 50 cc/hr not possible due to lost IV access accuchecks q achs Status: Chronic
[2016-12-02] MEDS: Latanoprost 2.5 ml Opht Soln OU SCH (21:45)
[2016-12-03] MEDS: Oxycodone/Acetaminophen 5/325 mg Tab PO PRN ×2 (00:23→09:02)
[2016-12-03] MEDS: (Novolin R) Insulin Human Regular 100 units/ml vial SC SCH ×3 (07:30→18:30)
[2016-12-03 08:29] LABS: BASO % 0.5 % (0.0-2.0); EOS # 0.3 K/uL (0.0-0.7); EOS % 3.9 % (0.0-4.0); HEMATOCRIT 29.7 % (34.0-47.0); LYMPH % 39.5 % (20.0-40.0); MEAN CELL VOLUME 86.5 fL (81.0-99.0); MEAN CORPUSCULAR HEMOGLOBIN 28.1 pg (27.0-31.0); MEAN CORPUSCULAR HGB CONC 32.5 g/dL (33.0-37.0); MEAN PLATELET VOLUME 8.4 fL (7.2-11.7); MONO # 0.7 K/uL (0.0-0.8); MONO % 9.2 % (0.0-10.0); WHITE BLOOD COUNT 7.5 K/uL (4.8-10.8)
[2016-12-03 08:50] LABS: POTASSIUM 4.4 mmol/L (3.6-5.2)
[2016-12-03 08:52] LABS: BILIRUBIN,TOTAL 0.6 mg/dL (0.2-1.3)
[2016-12-03 08:53] LABS: ALB/GLOB RATIO 0.9 (1.0-2.1); CALCIUM 8.6 mg/dl (8.6-10.4); TOTAL PROTEIN 7.7 g/dL (6.3-8.3)
[2016-12-03] MEDS: Pantoprazole 40 mg EC Tab PO SCH (09:12)
[2016-12-03] MEDS ORDERED: BROMFENAC SODIUM OD SCH (10:00)
[2016-12-03] MEDS ORDERED: DIFLUPREDNATE OD SCH (10:00)
[2016-12-03] MEDS ORDERED: oxyCODONE 5 mg Immediate Release Tab PO PRN (12:33)
--- NOTE | 2016-12-03 15:23 | CP.PCM.PN ---
Subjective - Date & Time of Evaluation Date of Evaluation: 12/03/16 Time of Evaluation: 15:21 - Subjective Subjective: No new complaints Less edematous Not dyspneic Still nauseated Creat 4.1- GFR 13 as before Objective - Vital Signs/Intake and Output Vital Signs (last 24 hours): Temp Pulse Resp BP Pulse Ox 98.2 F 71 20 155/88 H 98 12/03/16 08:22 12/03/16 08:22 12/03/16 08:22 12/03/16 09:15 12/03/16 08:22 Intake and Output: 12/03/16 12/03/16 06:59 18:59 Output Total 600 Balance -600 - Medications Medications: Current Medications Acetaminophen (Tylenol 325mg Tab) 650 mg PO Q6 PRN PRN Reason: Pain, severe (8-10) Amlodipine Besylate (Norvasc) 5 mg PO DAILY [facility] Last Admin: 12/03/16 09:12 Dose: 5 mg Artificial Tears (Artificial Tears) 0 ml OU BID [facility] Last Admin: 12/02/16 17:37 Dose: 1 drop Calcium Acetate (Phoslo) 667 mg PO BIDCC [facility] Last Admin: 12/03/16 09:05 Dose: 667 mg Cyclobenzaprine HCl (Flexeril) 2.5 mg PO TID [facility] Last Admin: 12/02/16 17:37 Dose: 2.5 mg Escitalopram Oxalate (Lexapro) 5 mg PO DAILY [facility] Last Admin: 12/03/16 09:15 Dose: 5 mg Famotidine (Pepcid) 20 mg PO DAILY [facility] Last Admin: 12/03/16 09:12 Dose: 20 mg Furosemide (Lasix) 80 mg PO DAILY [facility] Last Admin: 12/03/16 09:15 Dose: 80 mg Gabapentin (Neurontin) 100 mg PO TID [facility] Last Admin: 12/03/16 13:04 Dose: 100 mg Heparin Sodium (Porcine) (Heparin) 5,000 units SC Q12 [facility] Last Admin: 11/30/16 21:55 Dose: 5,000 units Home Med (Home Med) 1 unit PO DAILY [facility] Home Med (Brinzolamide/Brimonidine Tart [Simbrinza 1%-0.2% Eye Drops]) 1 drop BOTHEYES BID [facility] Last Admin: 12/01/16 10:00 Dose: Not Given Home Med (Difluprednate [Durezol]) 1 drop OD TID [facility] Home Med (Bromfenac Sodium [Prolensa]) 1 drop OD DAILY [facility] Insulin Human Regular (Novolin R) 0 unit SC ACHS [facility] PRN Reason: Protocol Last Admin: 12/03/16 13:04 Dose: 3 unit Latanoprost (Xalatan Opht) 0 ml OU HS [facility] Last Admin: 12/02/16 21:45 Dose: 2.5 ml Nebivolol (Bystolic) 20 mg PO DAILY [facility] Last Admin: 12/03/16 09:15 Dose: 20 mg Nifedipine (Procardia Xl) 90 mg PO DAILY [facility] Last Admin: 12/02/16 09:14 Dose: 90 mg Ondansetron HCl (Zofran Tab) 4 mg PO Q4H PRN PRN Reason: Nausea/Vomiting Last Admin: 12/02/16 09:14 Dose: 4 mg Oxycodone HCl (Oxycodone Immediate Release Tab) 5 mg PO Q8 PRN PRN Reason: Pain, severe (8-10) Pantoprazole Sodium (Protonix Ec Tab) 40 mg PO DAILY [facility] Last Admin: 12/03/16 09:12 Dose: 40 mg Sodium Bicarbonate (Sodium Bicarbonate Tab) 650 mg PO BID [facility] Last Admin: 12/03/16 09:12 Dose: 650 mg - Labs Labs: 12/03/16 08:24 12/03/16 08:24 PT 12.7 SECONDS (9.7-12.2) H 11/27/16 21:57 INR 1.1 11/27/16 21:57 APTT 87 SECONDS (21-34) H D 11/28/16 13:35 - Constitutional Appears: No Acute Distress, Chronically Ill - Head Exam Head Exam: ATRAUMATIC, NORMAL INSPECTION - Eye Exam Eye Exam: EOMI, Normal appearance - Neck Exam Neck Exam: Normal Inspection. absent: Tenderness - Respiratory Exam Respiratory Exam: Clear to Ausculation Bilateral, NORMAL BREATHING PATTERN - Cardiovascular Exam Cardiovascular Exam: REGULAR RHYTHM, +S1 - GI/Abdominal Exam GI & Abdominal Exam: Soft. absent: Tenderness - Extremities Exam Extremities Exam: Normal Inspection. absent: Tenderness - Neurological Exam Neurological Exam: Awake, CN II-XII Intact - Skin Skin Exam: Dry, Warm Assessment and Plan (1) CKD (chronic kidney disease) stage 5, GFR less than 15 ml/min Status: Acute (2) Proteinuria Status: Acute (3) Type 2 diabetes mellitus with diabetic chronic kidney disease Status: Chronic - Assessment and Plan (Free Text) Plan: Same meds For rehab soon Does not want to consider dialysis
[2016-12-03 16:29] VITALS: PULSE 73; RESP 18; TEMP 98; O2SAT 100
[2016-12-03] MEDS: Aritificial Tears (15ml) OU SCH (18:28)
--- NOTE | 2016-12-03 18:52 | CP.PCM.DIS ---
<MangoArabella V - Last Filed: 12/03/16 20:57> Provider - Provider Date of Admission: 11/28/16 01:58 Attending physician: Fidencio Renteria MD Hospital Course - Lab Results Lab Results: Micro Results 11/28/16 16:20 Blood Blood Culture - Final NO GROWTH AFTER 5 DAYS 11/28/16 16:20 Blood Gram Stain - Final TEST NOT PERFORMED 11/28/16 17:37 Blood Blood Culture - Final NO GROWTH AFTER 5 DAYS 11/28/16 17:37 Blood Gram Stain - Final TEST NOT PERFORMED 11/29/16 Unknown Urine,Clean Catch Urine Culture - Final 10-50,000 CFU/ML. MULTIPLE SPECIES. PROBABLE CONTAMINATION. 11/30/16 Unknown Urine,Clean Catch Urine Culture - Final No Growth (<1,000 CFU/ML) Most Recent Lab Values WBC 7.5 K/uL (4.8-10.8) 12/03/16 08:24 RBC 3.44 Mil/uL (3.80-5.20) L 12/03/16 08:24 Hgb 9.7 g/dL (11.0-16.0) L 12/03/16 08:24 Hct 29.7 % (34.0-47.0) L 12/03/16 08:24 MCV 86.5 fL (81.0-99.0) 12/03/16 08:24 MCH 28.1 pg (27.0-31.0) 12/03/16 08:24 MCHC 32.5 g/dL (33.0-37.0) L 12/03/16 08:24 RDW 13.0 % (11.5-14.5) 12/03/16 08:24 Plt Count 226 K/uL (130-400) 12/03/16 08:24 MPV 8.4 fL (7.2-11.7) 12/03/16 08:24 Neut % (Auto) 46.9 % (50.0-75.0) L 12/03/16 08:24 Lymph % (Auto) 39.5 % (20.0-40.0) 12/03/16 08:24 [place] % (Auto) 9.2 % (0.0-10.0) 12/03/16 08:24 Eos % (Auto) 3.9 % (0.0-4.0) 12/03/16 08:24 Baso % (Auto) 0.5 % (0.0-2.0) 12/03/16 08:24 Neut # 3.5 K/uL (1.8-7.0) 12/03/16 08:24 Lymph # 3.0 K/uL (1.0-4.3) 12/03/16 08:24 [place] # 0.7 K/uL (0.0-0.8) 12/03/16 08:24 Eos # 0.3 K/uL (0.0-0.7) 12/03/16 08:24 Baso # 0.0 K/uL (0.0-0.2) 12/03/16 08:24 PT 12.7 SECONDS (9.7-12.2) H 11/27/16 21:57 INR 1.1 11/27/16 21:57 APTT 87 SECONDS (21-34) H D 11/28/16 13:35 D-Dimer, Quantitative 399 ng/mlDDU (0-243) H 11/27/16 21:57 Sodium 138 mmol/L (132-148) 12/03/16 08:24 Potassium 4.4 mmol/L (3.6-5.2) 12/03/16 08:24 Chloride 102 mmol/L (98-107) 12/03/16 08:24 Carbon Dioxide 26 mmol/L (22-30) 12/03/16 08:24 Anion Gap 15 (10-20) 12/03/16 08:24 BUN 47 mg/dL (7-17) H 12/03/16 08:24 Creatinine 4.1 MG/DL (0.7-1.2) H 12/03/16 08:24 Est GFR ( Amer) 13 12/03/16 08:24 Est GFR (Non-Af Amer) 11 12/03/16 08:24 POC Glucose (mg/dL) 131 mg/dL (65-110) H 12/03/16 16:30 Random Glucose 116 mg/dL (65-105) H 12/03/16 08:24 Lactic Acid 1.1 mmol/L (0.7-2.1) 11/28/16 17:37 Calcium 8.6 mg/dl (8.6-10.4) 12/03/16 08:24 Phosphorus 4.7 mg/dL (2.5-4.5) H 11/29/16 17:00 Magnesium 2.1 mg/dL (1.6-2.3) 11/29/16 17:00 % Saturation 24 (20-55) 11/29/16 17:00 Ferritin 121.0 ng/mL 11/29/16 17:00 Total Bilirubin 0.6 mg/dL (0.2-1.3) 12/03/16 08:24 AST 25 U/L (14-36) 12/03/16 08:24 ALT 21 U/L (9-52) 12/03/16 08:24 Alkaline Phosphatase 174 U/L (38-126) H 12/03/16 08:24 Total Creatine Kinase 69 U/L (30-135) 11/29/16 17:00 CK-MB (Mass) 1.12 ng/mL (0.0-3.38) 11/29/16 17:00 Troponin I < 0.0120 ng/mL (0.00-0.120) 11/27/16 21:57 Troponin I, Quant < 0.0120 ng/mL (0.00-0.120) 11/29/16 17:00 NT-Pro-B Natriuret Pep 488 pg/mL (0-900) 11/27/16 21:57 Total Protein 7.7 g/dL (6.3-8.3) 12/03/16 08:24 Total Protein (PEP) 6.9 g/dL (6.1-8.1) 11/29/16 17:00 Albumin 3.7 g/dL (3.5-5.0) 12/03/16 08:24 Albumin (PEP) 3.2 g/dL (3.8-4.8) L 11/29/16 17:00 Globulin 4.0 gm/dL (2.2-3.9) H 12/03/16 08:24 Albumin/Globulin Ratio 0.9 (1.0-2.1) L 12/03/16 08:24 Kvxwj-8-Qfivkaicp 0.4 g/dL (0.2-0.3) H 11/29/16 17:00 Ljkye-2-Ermgldsyw 0.7 g/dL (0.5-0.9) 11/29/16 17:00 Cbff-7-Sthsvrpg 0.4 g/dL (0.4-0.6) 11/29/16 17:00 Kccl-5-Pnlebvfb 0.6 g/dL (0.2-0.5) H 11/29/16 17:00 Gamma Globulins 1.6 g/dL (0.8-1.7) 11/29/16 17:00 Abnorm Protein Band 1 TEST NOT PERFORMED 11/29/16 17:00 Abnorm Protein Band 2 TEST NOT PERFORMED 11/29/16 17:00 Abnorm Protein Band 3 TEST NOT PERFORMED 11/29/16 17:00 Procalcitonin 0.16 NG/ML (0.19-0.49) L 11/28/16 17:37 PTH Intact Whole Molec 130 pg/mL (14-64) H 11/29/16 17:00 Urine Color Straw (YELLOW) 11/29/16 01:36 Urine Clarity Clear (Clear) 11/29/16 01:36 Urine pH 7.0 (5.0-8.0) 11/29/16 01:36 Ur Specific [place] 1.012 (1.003-1.030) 11/29/16 01:36 Urine Protein 2+ mg/dL (NEGATIVE) H 11/29/16 01:36 Urine Glucose (UA) 1+ mg/dL (Normal) 11/29/16 01:36 Urine Ketones Negative mg/dL (NEGATIVE) 11/29/16 01:36 Urine Blood Negative (NEGATIVE) 11/29/16 01:36 Urine Nitrate Negative (NEGATIVE) 11/29/16 01:36 Urine Bilirubin Negative (NEGATIVE) 11/29/16 01:36 Urine Urobilinogen Normal mg/dL (0.2-1.0) 11/29/16 01:36 Ur Leukocyte Esterase Neg Myles/uL (Negative) 11/29/16 01:36 Urine WBC (Auto) 1 /hpf (0-5) 11/29/16 01:36 Urine RBC (Auto) 1 /hpf (0-3) 11/29/16 01:36 Ur Squamous Epith Cells 4 /hpf (0-5) 11/29/16 01:36 Urine Bacteria Rare (<OCC) 11/29/16 01:36 Urine Opiates Screen Negative (NEGATIVE) 11/29/16 01:36 Urine Methadone Screen Negative (NEGATIVE) 11/29/16 01:36 Ur Barbiturates Screen Negative (NEGATIVE) 11/29/16 01:36 Ur Phencyclidine Scrn Negative (NEGATIVE) 11/29/16 01:36 Ur Amphetamines Screen Negative (NEGATIVE) 11/29/16 01:36 U Benzodiazepines Scrn Negative (NEGATIVE) 11/29/16 01:36 U Oth Cocaine Metabols Negative (NEGATIVE) 11/29/16 01:36 U Cannabinoids Screen Negative (NEGATIVE) 11/29/16 01:36 TAMIKO & SPEP Interp See note 11/29/16 17:00 Discharge Plan - Discharge Medications Prescriptions: Acetaminophen [Tylenol 325mg tab] 650 mg PO Q6 PRN #120 tab PRN Reason: Pain, Severe (8-10) amLODIPine [Norvasc] 5 mg PO DAILY #30 tab Brinzolamide/Brimonidine Tart [Simbrinza 1%-0.2% Eye Drops] 8 ml OP BID #1 drops.susp Bromfenac Sodium [Prolensa] 3 ml OP DAILY #1 drops Difluprednate [Durezol] 5 ml OP TID #1 drops Nebivolol [Bystolic] 20 mg PO DAILY #30 tab Travoprost [Travatan Z] 5 ml OP HS #1 drops - Follow Up Plan Condition: FAIR Disposition: REHAB FACILITY/REHAB UNIT Instructions: Heart Failure (DC), Chest Pain (DC), Acute Kidney Injury (DC), Renal Failure Diet (DC), Heart Healthy Diet (DC) Attending/Attestation - Attestation I have personally seen and examined this patient.: Yes I have fully participated in the care of the patient.: Yes I have reviewed all pertinent clinical information, including history, physical exam and plan: Yes Notes (Text): Patient seen, examined, and case discussed with day-time resident. Patient seen at bedside this morning with daughter present via telephone with patient's permission. Patient reports she is feeling alot better, reports swelling over the leg which is improved with lasix. Patient refuses dialysis--> per her, does not want it mentioned at all, wants to accept the power of prayer. I reported to the patient that she must follow-up with her primary knocker off and there is a strong possibility she may need dialysis if her kidney function declines given responsibility of the kidney include fluid regulation. Reviewed [place] [employer]-->last script Oxycodone-Actaminophen (11/05/16 filled, 90 supply) -->patient advised to use lower dose of Oxycodone given her nausea, lightheadness and lethargy that was present on admission. On discharge, patient discharge on Oxycodone 5mg PO Q 8 hours (15 supply/no fill). Patient counselled on the side effects of narcotic medications including but not limited to constipation, lethargy, confusion. Patient reports she is aware. Patient reports alternatives she has difficulty with Tramadol (itchiness); d/c Benzo on admission given lethargy, and Tylenol not sufficient for pain control. Assessment/Plan CHF (congestive heart failure), NYHA class III Assessment & Plan: Cardiology (Dr. Cronin) on consult Nephrology (Dr. Barrios) on consult 11/30: NPO for stress test tomorrow with Dr. Cronin. Ins and Outs daily weights bystolic 20mg PO daily, Procardia 90mg XL PO daily and Lasix resumed per Dr. Martinez. Held león and arb secondary to renal insuffiency Status: Acute Metabolic encephalopathy Assessment & Plan: Infectious Disease (Dr. Hubbard) on board-->help appreciated 11/29: Repeat CXR showed no pleural effusion. Pt Afebrile. Abx stopped per Dr. Hubbard. Doppler negative. F/U other studies. Chest xray impression: moderate to severe venous congestion with prominent airspace consolidative changes at the left lung base. Moderate left pleural effusion order strep, mycoplasma, legionella-->pending Blood culture (11/27/16): negative X 48 hours Urine culture (11/29/16): pending speciation; 10,000-50,000 CFU; ordered for repeat urine culture aztrenoam 1 mg IV once on 11/28/[address] (11/28/16): normal Patient is negative for PE/DVT; heparin drip stopped Patient on significant narcotic at rehab and Morphine. Discontinued. Given narcan on 11/28/16 which help reduced lethargy significant. Be careful with narcotic medications with patient procalcitonin 0.16 (low) and lactate: 1.1 urine drug screen: negative Status: Acute Acute on chronic renal failure Assessment & Plan: Monitor BUN/CR Patient has refused dialysis initially on Thursday Dr morillo of nephrology consulted, f/u recs renal dose all medications order d5 1/2 ns 50 cc/hr-->IV access lost held león/arb/statin/diuretic secondary to renal insuffiency Status: Chronic Type 2 diabetes mellitus with diabetic chronic kidney disease Assessment & Plan: D5 1/2 ns 50 cc/hr not possible due to lost IV access accuchecks q achs Status: Chronic Prophylactic measure Assessment & Plan: protonix 40mg po daily stopped. Will switch to Nexium after daughter bring bottle from home. SCDs pt eval and treat Status: Acute <Rubia Molina - Last Filed: 12/03/16 21:42> Provider - Provider Date of Admission: 11/28/16 01:58 Attending physician: Fidencio Renteria MD Time Spent in preparation of Discharge (in minutes): 40 Diagnosis - Discharge Diagnosis (1) CHF (congestive heart failure), NYHA class III Status: Chronic Comment: See hospital summary for further details. (2) Metabolic encephalopathy Status: Resolved Comment: See hospital summary for further details. (3) Hip pain, right Status: Chronic Comment: See hospital summary for further details. (4) Acute on chronic renal failure Status: Chronic Comment: See hospital summary for further details. (5) Type 2 diabetes mellitus with diabetic chronic kidney disease Status: Chronic Comment: See hospital summary for further details. Hospital Course - Lab Results Lab Results: Micro Results 11/28/16 17:37 Blood Blood Culture - Final NO GROWTH AFTER 5 DAYS 11/28/16 17:37 Blood Gram Stain - Final TEST NOT PERFORMED 11/28/16 16:20 Blood Blood Culture - Preliminary NO GROWTH AFTER 4 DAYS 11/29/16 Unknown Urine,Clean Catch Urine Culture - Final 10-50,000 CFU/ML. MULTIPLE SPECIES. PROBABLE CONTAMINATION. 11/30/16 Unknown Urine,Clean Catch Urine Culture - Final No Growth (<1,000 CFU/ML) Most Recent Lab Values WBC 7.5 K/uL (4.8-10.8) 12/03/16 08:24 RBC 3.44 Mil/uL (3.80-5.20) L 12/03/16 08:24 Hgb 9.7 g/dL (11.0-16.0) L 12/03/16 08:24 Hct 29.7 % (34.0-47.0) L 12/03/16 08:24 MCV 86.5 fL (81.0-99.0) 12/03/16 08:24 MCH 28.1 pg (27.0-31.0) 12/03/16 08:24 MCHC 32.5 g/dL (33.0-37.0) L 12/03/16 08:24 RDW 13.0 % (11.5-14.5) 12/03/16 08:24 Plt Count 226 K/uL (130-400) 12/03/16 08:24 MPV 8.4 fL (7.2-11.7) 12/03/16 08:24 Neut % (Auto) 46.9 % (50.0-75.0) L 12/03/16 08:24 Lymph % (Auto) 39.5 % (20.0-40.0) 12/03/16 08:24 [place] % (Auto) 9.2 % (0.0-10.0) 12/03/16 08:24 Eos % (Auto) 3.9 % (0.0-4.0) 12/03/16 08:24 Baso % (Auto) 0.5 % (0.0-2.0) 12/03/16 08:24 Neut # 3.5 K/uL (1.8-7.0) 12/03/16 08:24 Lymph # 3.0 K/uL (1.0-4.3) 12/03/16 08:24 [place] # 0.7 K/uL (0.0-0.8) 12/03/16 08:24 Eos # 0.3 K/uL (0.0-0.7) 12/03/16 08:24 Baso # 0.0 K/uL (0.0-0.2) 12/03/16 08:24 PT 12.7 SECONDS (9.7-12.2) H 11/27/16 21:57 INR 1.1 11/27/16 21:57 APTT 87 SECONDS (21-34) H D 11/28/16 13:35 D-Dimer, Quantitative 399 ng/mlDDU (0-243) H 11/27/16 21:57 Sodium 138 mmol/L (132-148) 12/03/16 08:24 Potassium 4.4 mmol/L (3.6-5.2) 12/03/16 08:24 Chloride 102 mmol/L (98-107) 12/03/16 08:24 Carbon Dioxide 26 mmol/L (22-30) 12/03/16 08:24 Anion Gap 15 (10-20) 12/03/16 08:24 BUN 47 mg/dL (7-17) H 12/03/16 08:24 Creatinine 4.1 MG/DL (0.7-1.2) H 12/03/16 08:24 Est GFR ( Amer) 13 12/03/16 08:24 Est GFR (Non-Af Amer) 11 12/03/16 08:24 POC Glucose (mg/dL) 131 mg/dL (65-110) H 12/03/16 16:30 Random Glucose 116 mg/dL (65-105) H 12/03/16 08:24 Lactic Acid 1.1 mmol/L (0.7-2.1) 11/28/16 17:37 Calcium 8.6 mg/dl (8.6-10.4) 12/03/16 08:24 Phosphorus 4.7 mg/dL (2.5-4.5) H 11/29/16 17:00 Magnesium 2.1 mg/dL (1.6-2.3) 11/29/16 17:00 % Saturation 24 (20-55) 11/29/16 17:00 Ferritin 121.0 ng/mL 11/29/16 17:00 Total Bilirubin 0.6 mg/dL (0.2-1.3) 12/03/16 08:24 AST 25 U/L (14-36) 12/03/16 08:24 ALT 21 U/L (9-52) 12/03/16 08:24 Alkaline Phosphatase 174 U/L (38-126) H 12/03/16 08:24 Total Creatine Kinase 69 U/L (30-135) 11/29/16 17:00 CK-MB (Mass) 1.12 ng/mL (0.0-3.38) 11/29/16 17:00 Troponin I < 0.0120 ng/mL (0.00-0.120) 11/27/16 21:57 Troponin I, Quant < 0.0120 ng/mL (0.00-0.120) 11/29/16 17:00 NT-Pro-B Natriuret Pep 488 pg/mL (0-900) 11/27/16 21:57 Total Protein 7.7 g/dL (6.3-8.3) 12/03/16 08:24 Total Protein (PEP) 6.9 g/dL (6.1-8.1) 11/29/16 17:00 Albumin 3.7 g/dL (3.5-5.0) 12/03/16 08:24 Albumin (PEP) 3.2 g/dL (3.8-4.8) L 11/29/16 17:00 Globulin 4.0 gm/dL (2.2-3.9) H 12/03/16 08:24 Albumin/Globulin Ratio 0.9 (1.0-2.1) L 12/03/16 08:24 Jwxkm-5-Tyevmscgs 0.4 g/dL (0.2-0.3) H 11/29/16 17:00 Lynpu-5-Pvvuewnqy 0.7 g/dL (0.5-0.9) 11/29/16 17:00 Nulz-9-Bmlhicuz 0.4 g/dL (0.4-0.6) 11/29/16 17:00 Gesg-5-Sufeznzg 0.6 g/dL (0.2-0.5) H 11/29/16 17:00 Gamma Globulins 1.6 g/dL (0.8-1.7) 11/29/16 17:00 Abnorm Protein Band 1 TEST NOT PERFORMED 11/29/16 17:00 Abnorm Protein Band 2 TEST NOT PERFORMED 11/29/16 17:00 Abnorm Protein Band 3 TEST NOT PERFORMED 11/29/16 17:00 Procalcitonin 0.16 NG/ML (0.19-0.49) L 11/28/16 17:37 PTH Intact Whole Molec 130 pg/mL (14-64) H 11/29/16 17:00 Urine Color Straw (YELLOW) 11/29/16 01:36 Urine Clarity Clear (Clear) 11/29/16 01:36 Urine pH 7.0 (5.0-8.0) 11/29/16 01:36 Ur Specific [place] 1.012 (1.003-1.030) 11/29/16 01:36 Urine Protein 2+ mg/dL (NEGATIVE) H 11/29/16 01:36 Urine Glucose (UA) 1+ mg/dL (Normal) 11/29/16 01:36 Urine Ketones Negative mg/dL (NEGATIVE) 11/29/16 01:36 Urine Blood Negative (NEGATIVE) 11/29/16 01:36 Urine Nitrate Negative (NEGATIVE) 11/29/16 01:36 Urine Bilirubin Negative (NEGATIVE) 11/29/16 01:36 Urine Urobilinogen Normal mg/dL (0.2-1.0) 11/29/16 01:36 Ur Leukocyte Esterase Neg Myles/uL (Negative) 11/29/16 01:36 Urine WBC (Auto) 1 /hpf (0-5) 11/29/16 01:36 Urine RBC (Auto) 1 /hpf (0-3) 11/29/16 01:36 Ur Squamous Epith Cells 4 /hpf (0-5) 11/29/16 01:36 Urine Bacteria Rare (<OCC) 11/29/16 01:36 Urine Opiates Screen Negative (NEGATIVE) 11/29/16 01:36 Urine Methadone Screen Negative (NEGATIVE) 11/29/16 01:36 Ur Barbiturates Screen Negative (NEGATIVE) 11/29/16 01:36 Ur Phencyclidine Scrn Negative (NEGATIVE) 11/29/16 01:36 Ur Amphetamines Screen Negative (NEGATIVE) 11/29/16 01:36 U Benzodiazepines Scrn Negative (NEGATIVE) 11/29/16 01:36 U Oth Cocaine Metabols Negative (NEGATIVE) 11/29/16 01:36 U Cannabinoids Screen Negative (NEGATIVE) 11/29/16 01:36 TAMIKO & SPEP Interp See note 11/29/16 17:00 - Hospital Course Hospital Course: Patient is a 60 year old female with past medical history significant for HTN, diabetes,CHF, CKD, GERD and rheumatoid arthritis who presents today stating that she has pain in her left leg/foot, back, and chest. She reports that this chest pain started yesterday in the morning and is midsternal. She can't remember what she was doing when the pain started. She reports that it is worse when she takes a deep breath. She did not take any medications to help the pain. She states the pain comes and goes but is unsure about this fact and can' t quantify how long this pain lasts when she has it. She denies radiation of the pain diaphoresis, N/V. She was recently hospitalized here and November and states she followed up with her PMD but not cardiology or nephrology as instructed. She denies fever/chills or shortness of breath. She states is ambulates with a cane/walker. She reports that she knows her kidneys are not functioning well and that she does seems to be making less urine than normal. She is urinating twice a day. She denies dysuria. She states she doesn't feel well/normal. Patient was admitted to telemetry. Cardiology was consulted (Dr. Cronin). Per cardiac workup: NYHA Class III 11/30: Stress test:LV function systolic function normal. EF>55% Infectious disease was consulted (Dr. Hubbard). Per cardiac workup: 11/29: Repeat CXR showed no pleural effusion. Pt Afebrile. Abx stopped per Dr. Hubbard. Doppler negative. F/U other studies. Chest xray impression: moderate to severe venous congestion with prominent airspace consolidative changes at the left lung base. Moderate left pleural effusion. Head CT (11/28/16): normal Patient is negative for PE/DVT Nephrology was consulted (Dr. Morillo). Patient is medically stable for discharge pending authorization for subacute rehab. Patient advised to follow up with primary knocker off in regards to starting renal replacement therapy. Patient strongly advised to not take narcotic medication will cause increased letheragy. Patient should return to ED immediately if symptoms return or worsen. Instructions discussed with patient who understood and agreed. This is a summary of patient's hospitalization please refer to EMR for further details of the record. Discharge Exam - Head Exam Head Exam: ATRAUMATIC, NORMAL INSPECTION - Eye Exam Eye Exam: Normal appearance - ENT Exam ENT Exam: Mucous Membranes Moist - Respiratory Exam Respiratory Exam: Clear to PA & Lateral, NORMAL BREATHING PATTERN - Cardiovascular Exam Cardiovascular Exam: REGULAR RHYTHM, RRR, +S1, +S2. absent: JVD - GI/Abdominal Exam GI & Abdominal Exam: Normal Bowel Sounds, Soft. absent: Tenderness - Extremities Exam Extremities exam: tenderness (right foot tenderness) - Neurological Exam Neurological exam: Alert, Oriented x3 - Psychiatric Exam Psychiatric exam: Normal Mood - Skin Skin Exam: Dry, Intact, Normal Color, Warm
[2016-12-03 20:29] VITALS: BP 155/92
== END 2016-12-03 21:29 | DRG 682 ==
LOC: C.ER 21:04 → C.6T 11-28 01:58
PROVIDERS: ADMIT Internal Medicine; ATTEND Internal Medicine
DX: N17.9 Acute kidney failure, unspecified (principal); G93.41 Metabolic encephalopathy; I13.2 Hypertensive heart and chronic kidney disease with heart failure and with stage 5 chronic kidney disease, or end stage renal disease; I50.32 Chronic diastolic (congestive) heart failure; E86.0 Dehydration; E11.21 Type 2 diabetes mellitus with diabetic nephropathy; N18.5 Chronic kidney disease, stage 5; I27.2 Other secondary pulmonary hypertension; R07.9 Chest pain, unspecified; E11.22 Type 2 diabetes mellitus with diabetic chronic kidney disease; D64.9 Anemia, unspecified; F32.9 Major depressive disorder, single episode, unspecified; M06.9 Rheumatoid arthritis, unspecified; M25.551 Pain in right hip; K21.9 Gastro-esophageal reflux disease without esophagitis; H40.9 Unspecified glaucoma; R29.6 Repeated falls; Z88.8 Allergy status to other drugs, medicaments and biological substances; Z90.49 Acquired absence of other specified parts of digestive tract; Z87.891 Personal history of nicotine dependence; Z79.4 Long term (current) use of insulin; Z88.2 Allergy status to sulfonamides; Z88.6 Allergy status to analgesic agent; Z88.0 Allergy status to penicillin; Z91.013 Allergy to seafood